=== PATIENT | female | born 1975 | race African-American/Black ===

== ENCOUNTER 2017-01-22 15:44 | Inpatient (IN) | payer MEDICAID, OTHER ==
[~2017-01-22] VITALS: Ht 165.1 cm; Wt 120.5 kg
[2017-01-22] VITALS (9 sets, daily range): BP systolic 153–192; BP diastolic 80–97; PULSE 82–96; RESP 16–24; TEMP 97.6–99; O2SAT 96–100
--- NOTE | 2017-01-22 15:53 | PD ---
HPI Chief Complaint: chest pain Time Seen by Provider: 15:53 Travel History International Travel<30 days: No Contact w/Intl Traveler<30days: No Traveled to known affect area: No History of Present Illness HPI 41-year-old female with history of asthma presents to emergency department for evaluation of acute onset substernal chest pain radiating to her right arm. Patient states [place] in the [place] when she became [place]. She went to sit in the air-conditioning and that is when the chest pain started. She became diaphoretic and lightheaded with slight nausea. Pain persists. It radiates to her Right arm. Denies any cardiac history. Does smoke tobacco cigarettes approximately 4 cigarettes a day. Denies illicit drug use. Patient has no history of DVT or PE. No recent illnesses, fever, or chills. She has no history to report at this time. [facility] Past Medical History Asthma: Yes Social History Alcohol Use: Yes Tobacco Use: Yes Substance Use: No Allergies-Medications (Allergen,Severity, Reaction): Coded Allergies: No Known Allergies (Unverified , 01/22/17) Review of Systems Except as stated in HPI: all other systems reviewed are Neg Physical Exam Narrative GENERAL: Obese female patient, sitting up in bed, in no acute distress SKIN: Focused skin assessment warm/dry. HEAD: Atraumatic. Normocephalic. EYES: Pupils equal and round. No scleral icterus. No injection or drainage. ENT: No nasal bleeding or discharge. Mucous membranes pink and moist. NECK: Trachea midline. No JVD. CARDIOVASCULAR: Regular rate and rhythm. No murmur appreciated. RESPIRATORY: No accessory muscle use. Diminished, likely due to girth. Breath sounds equal bilaterally. GASTROINTESTINAL: Abdomen soft, non-tender, nondistended. Hepatic and splenic margins not palpable. MUSCULOSKELETAL: No obvious deformities. No clubbing. No cyanosis. No edema. NEUROLOGICAL: Awake and alert. No obvious cranial nerve deficits. Motor grossly within normal limits. Normal speech. PSYCHIATRIC: Appropriate mood and affect; insight and judgment normal. Data Data Last Documented VS Vital Signs Date Time Temp Pulse Resp B/P Pulse Ox O2 Delivery O2 Flow Rate FiO2 01/22/17 17:38 89 20 179/84 100 Room Air 01/22/17 17:03 21 01/22/17 16:00 99.0 Orders Electrocardiogram (01/22/17 15:50) Basic Metabolic Panel (Bmp) (01/22/17 15:50) Ckmb (Isoenzyme) Profile (01/22/17 15:50) Complete Blood Count With Diff (01/22/17 15:50) Magnesium (Mg) (01/22/17 15:50) Prothrombin Time / Inr (Pt) (01/22/17 15:50) Act Partial Throm Time (Ptt) (01/22/17 15:50) Troponin I (01/22/17 15:50) Lipase (01/22/17 15:50) Chest, Single Ap (01/22/17 15:50) Ecg Monitoring (01/22/17 15:50) Bilateral Bp Monitoring (01/22/17 15:50) Iv Access Insert/Monitor (01/22/17 15:50) Oximetry (01/22/17 15:50) Oxygen Administration (01/22/17 15:50) Aspirin Chew (Aspirin Chew) (01/22/17 16:00) Sodium Chloride 0.9% Flush (Ns Flush) (01/22/17 16:00) Nitroglycerin Sl (Nitrostat Sl) (01/22/17 16:00) Sodium Chlorid 0.9% 500 Ml Inj (Ns 500 M (01/22/17 16:00) Ct Brain W/O Iv Contrast(Rout) (01/22/17 ) Vascular Access Team Consult/P PRN (01/22/17 16:45) Vascular Poc Ultrasound (01/22/17 ) Diet Npo (01/22/17 Dinner) Activity Bed Rest (01/22/17 ) Fibrinogen (01/22/17 17:02) Drug Screen, Random Urine (01/22/17 17:02) Type And Screen (01/22/17 17:02) Consult Neurology (01/22/17 ) Neuro Checks Q2HX12,Q4H (01/22/17 17:02) Nursing Bedside Swallow Assess .ONCE (01/22/17 17:02) NPO (01/22/17 17:02) Sodium Chlor 0.9% 1000 Ml Inj (Ns 1000 M (01/22/17 17:02) Resp Oxygen Perico C Titrat 1-4 L (01/22/17 17:02) Ed Urine Pregnancytest Poc (01/22/17 17:02) Cta Neck W Iv Contrast W 3d (01/22/17 ) Cta Brain W Iv Contrast W 3d (01/22/17 ) Cta Chest W Iv Contrast W 3d (01/22/17 ) Iohexol 350 Inj (Omnipaque 350 Inj) (01/22/17 17:26) I-Stat Creatinine (01/22/17 16:47) I-Stat Profile (01/22/17 16:47) (Hub Use Only)Inp Phy Cons/Ref (01/22/17 ) Sodium Chlor 0.9% 1000 Ml Inj (Ns 1000 M (01/22/17 18:00) Morphine Inj (Morphine Inj) (01/22/17 18:00) Ondansetron Inj (Zofran Inj) (01/22/17 18:00) Mri Brain W&W/O Contrast (01/22/17 ) Gadodiamide Pf Inj (Omniscan Pf Inj) (01/22/17 18:35) Admit Order (Ed Use Only) (01/22/17 19:13) Labs Laboratory Tests Test 01/22/17 16:47 White Blood Count 12.2 TH/MM3 Red Blood Count 4.65 MIL/MM3 Hemoglobin 11.7 GM/DL Bedside Hemoglobin 12.6 G/DL Hematocrit 35.7 % Bedside Hematocrit 37.0 % Mean Corpuscular Volume 76.7 FL Mean Corpuscular Hemoglobin 25.1 PG Mean Corpuscular Hemoglobin 32.8 % Concent Red Cell Distribution Width 15.5 % Platelet Count 422 TH/MM3 Mean Platelet Volume 8.4 FL Neutrophils (%) (Auto) 55.0 % Lymphocytes (%) (Auto) 37.6 % Monocytes (%) (Auto) 6.5 % Eosinophils (%) (Auto) 0.0 % Basophils (%) (Auto) 0.9 % Neutrophils # (Auto) 6.7 TH/MM3 Lymphocytes # (Auto) 4.6 TH/MM3 Monocytes # (Auto) 0.8 TH/MM3 Eosinophils # (Auto) 0.0 TH/MM3 Basophils # (Auto) 0.1 TH/MM3 CBC Comment DIFF FINAL Differential Comment Prothrombin Time 10.0 SEC Prothromb Time International 0.9 RATIO Ratio Activated Partial 28.2 SEC Thromboplast Time Bedside Sodium 135 MMOL/L Sodium Level 133 MEQ/L Bedside Potassium 3.8 MMOL/L Potassium Level 3.7 MEQ/L Bedside Chloride 96 MMOL/L Chloride Level 97 MEQ/L Carbon Dioxide Level 28.4 MEQ/L Anion Gap 8 MEQ/L Bedside Blood Urea Nitrogen 8 MG/DL Blood Urea Nitrogen 9 MG/DL Creatinine 0.57 MG/DL Bedside Creatinine 0.4 MG/DL Estimat Glomerular Filtration 141 ML/MIN Rate Bedside Glucose 322 MG/DL Random Glucose 312 MG/DL Calcium Level 8.7 MG/DL Magnesium Level 1.7 MG/DL Total Creatine Kinase 44 U/L Troponin I LESS THAN 0.02 NG/ML Lipase 93 U/L [facility] Medical Decision Making Medical Screen Exam Complete: Yes Emergency Medical Condition: Yes Medical Record Reviewed: Yes Differential Diagnosis ACS versus pleuritic pain versus chest wall pain versus musculoskeletal pain Narrative Course 41-year-old female presents to the emergency department for evaluation of substernal chest pain radiating to her right arm. Patient continues to have pain. Chest pain protocol is initiated. Patient is given aspirin. Sublingual nitroglycerin is ordered however there is not any worse he department at this time. Once it is felt, patient will be given it. EKG is reviewed by my attending physician. Normal sinus rhythm without any ST elevation or depression. Vascular access consult was placed for IV placement. 1658 while sitting up in bed, patient is noted to have developed a facial droop of the right lip. When cranial nerves are assessed, patient's smile is symmetric. Eyebrow raise is also symmetric. Tongue sticks out straight. Patient has slight weakness in the right upper extremity and reports a tingling/ numbness in her right toes. After more discussion about the patient's symptoms , patient states when her chest pain began, she did feel like her right arm was slightly weaker when she tried to lift up her purse, it seemed to be heavier however she was more concerned about her chest pain so she did not mention this. This was around 3:30 PM. I have called my attending physician to the group has also assessed the patient. A stroke alert is called at this time. [facility] [address] Lindsey. He requests CTA brain and neck then a call with update. 1715 I received a call from Sugar STERLING who states patient is in radiology with complaints of chest pain radiating to back. After discussing with my attending, there is concern of possible dissection which should be evaluated prior to any anticoagulation if indicated. I spoke with Dr. Aj and they will move forward with CTA chest as well 1718 I received call from Dr. Aj who states pt's CT has a bright spot within the L basal ganglia. Possible tiny hemorrhage cannot be excluded. Obviously had pt presented with neuro symptoms ASA would have not been administered. 1740 Dr. Varma, neurosurgeon reviewed the CT and questions if MRI could better evaluate for possible bleed. Dr. Aj said this would be helpful in better identifying the area. MRI is ordered. 1805 I receive a call from Dr. Aj. CTA of the brain is concerning for filling defect in the L MCA; not amendable to endovascular, but possible TPA. A call is placed to Dr. Lindsey to update him. Meanwhile, pt is in MRI MRI is with no intracranial hemorrhage. I have updated Dr. Lindsey on the findings ; he recommends ASA. He does not feel the pt is TPA candidate. I have spoken with Dr. Vickers. Pt will be admitted. Diagnosis Primary Impression: CVA (cerebral vascular accident) Qualified Code: I63.512 - Cerebrovascular accident (CVA) due to stenosis of left middle cerebral artery Additional Impressions: Chest pain Qualified Code: R07.9 - Chest pain, unspecified type Lesion of basal ganglia Asthma Qualified Code: J45.909 - Uncomplicated asthma, unspecified asthma severity Diabetes Qualified Code: E11.8 - Type 2 diabetes mellitus with complication, without long-term current use of insulin Tobacco dependence Admitting Information Admitting Physician Requests: Admit Condition: Stable Jessica Weller ELENA Jan 22, 2017 15:53
[2017-01-22] MEDS ORDERED: ASPIRIN 81 MG CHEW TAB PO ONE (16:00)
[2017-01-22] MEDS ORDERED: SODIUM CHLORID 0.9% 500 ML INJ 500 ML IV ONE (16:00)
[2017-01-22] MEDS ORDERED: SODIUM CHLORIDE 0.9% FLUSH 10 ML FLUSH IVF PRN (16:00)
[2017-01-22] MEDS ORDERED: NITROGLYCERIN 0.4 MG SL 25 TABS/BTL SL SCH (16:00)
--- NOTE | 2017-01-22 16:16 | RADRPT ---
EXAM DATE/TIME: 01/22/2017 15:48 [facility] COMPARISON: No previous studies available for comparison. INDICATIONS : Chest pain. Congestion for 1 day. MEDICAL HISTORY : Diabetes mellitus type II. SURGICAL HISTORY : None. ENCOUNTER: Initial ACUITY: 1 day PAIN SCORE: 10/10 LOCATION: Right upper chest FINDINGS: Single AP view of the chest. The lungs are clear. Cardiomediastinal silhouette within normal limits. No evidence of pleural effusion or pneumothorax. CONCLUSION: No acute cardiopulmonary disease identified. Ildefonso Askew MD on January 22, 2017 at 16:13 Board Certified Radiologist. This report was verified electronically.
[2017-01-22] MEDS ORDERED: SODIUM CHLOR 0.9% 1000 ML INJ 1,000 ML IV ONE ×2 (17:02→18:00)
[2017-01-22 17:11] LABS: AUTOMATED NEUTROPHIL # 6.7 TH/MM3 (1.8-7.7); BASOPHIL # 0.1 TH/MM3 (0-0.2); BASOPHIL % 0.9 % (0.0-2.0); HEMATOCRIT 35.7 % (35.0-46.0); HEMO FLAGS DIFF FINAL; LYMPH % 37.6 % (9.0-44.0); LYMPHOCYTE # 4.6 TH/MM3 (1.0-4.8); MEAN CELL VOLUME 76.7 FL (80.0-100.0); MEAN CORPUSCULAR HEMOGLOBIN 25.1 PG (27.0-34.0); MEAN CORPUSCULAR HGB CONC 32.8 % (32.0-36.0); MONO % 6.5 % (0.0-8.0); PLATELET COUNT 422 TH/MM3 (150-450); RED BLOOD COUNT 4.65 MIL/MM3 (4.00-5.30); RED CELL DISTRIBUTION WIDTH 15.5 % (11.6-17.2); WHITE BLOOD COUNT 12.2 TH/MM3 (4.0-11.0)
[2017-01-22 17:21] LABS: APTT (PATIENT) 28.2 SEC (24.3-30.1); INTERNATIONAL NORMALIZED RATIO 0.9 RATIO
--- NOTE | 2017-01-22 17:21 | RADRPT ---
EXAM DATE/TIME: 01/22/2017 17:01 [place] Corrected on: January 22, 2017; [facility] COMPARISON: CHEST SINGLE AP, January 22, 2017, 15:48. INDICATIONS : Stroke alert; ritgh side facial droop. RADIATION DOSE: 56.35 CTDIvol (mGy) This report was called by Marilyn to Jessica Daily at 1715 MEDICAL HISTORY : None SURGICAL HISTORY : None. ENCOUNTER: Initial ACUITY: 1 day PAIN SCALE: 0/10 LOCATION: Bilateral cranial TECHNIQUE: Multiple contiguous axial images were obtained of the head. Using automated exposure control and adj ustment of the mA and/or kV according to patient size, radiation dose was kept as low as reasonably a chievable to obtain optimal diagnostic quality images. DICOM format image data is available electro nically for review and comparison. FINDINGS: CEREBRUM: The ventricles are normal for age. A small hyperdense focus is identified in the left basal ganglia. There is no associated edema or mass effect. Cerebral hemispheres are otherwise unremarkable. No ext ra-axial fluid collections are seen. POSTERIOR FOSSA: The cerebellum and brainstem are intact. The 4th ventricle is midline. The cerebellopontine angle i s unremarkable. EXTRACRANIAL: The visualized portion of the orbits is intact. SKULL: The calvaria is intact. No evidence of skull fracture. CONCLUSION: Small hyperdense focus in the left basal ganglia representing either focal calcification or a very sm all hemorrhage. Otherwise normal appearing brain. Girish Aj MD on January 22, 2017 at 17:11 Board Certified Radiologist. This report was verified electronically. Girish Aj MD on January 22, 2017 at 17:47 Board Certified Radiologist. This report was verified electronically.
[2017-01-22] MEDS ORDERED: IOHEXOL 350 MG/ML 10 ML VIAL (for RAD DIAG) IV ONE (17:26)
[2017-01-22 17:30] LABS: I-STAT POTASSIUM 3.8 MMOL/L (3.5-4.9)
--- NOTE | 2017-01-22 17:47 | RADRPT ---
EXAM DATE/TIME: 01/22/2017 17:18 [facility] COMPARISON: No previous studies available for comparison. INDICATIONS : Evaluate for aortic dissection. Facial droop. Chest pain. IV CONTRAST: 150 cc Omnipaque 350 (iohexol) IV ; Cumulative dose for multiple exams. RADIATION DOSE: 30.41 CTDIvol (mGy) MEDICAL HISTORY : Diabetes mellitus type 2. SURGICAL HISTORY : None. ENCOUNTER: Initial ACUITY: 1 day PAIN SCALE: 7/10 LOCATION: chest TECHNIQUE: Volumetric scanning of the chest was performed using a pulmonary embolism protocol MIP images were re constructed. Using automated exposure control and adjustment of the mA and/or kV according to patien t size, radiation dose was kept as low as reasonably achievable to obtain optimal diagnostic quality images. DICOM format image data is available electronically for review and comparison. Follow-up recommendations for detected pulmonary nodules are based at a minimum on nodule size and pa tient risk factors according to Fleischner Society Guidelines. FINDINGS: PULMONARY ARTERIES and thoracic aorta: Thoracic aorta is normal in caliber. There is no evidence of aneurysm or dissection. No filling defects are seen in the pulmonary arteries through the segmental level. LUNGS: There is no consolidation or pneumothorax . No concerning pulmonary nodule is visualized. PLEURAE: There is no pleural thickening or pleural effusion. MEDIASTINUM: There is good visualization of the great vessels of the middle mediastinum. No evidence of mediastin al or hilar adenopathy/mass. MUSCULOSKELETAL: Within normal limits for patient age. MISCELLANEOUS: The visualized upper abdominal organs demonstrate no acute abnormality. CONCLUSION: Normal examination. No evidence of pulmonary embolism or thoracic aortic dissection. Girish Aj MD on January 22, 2017 at 17:45 Board Certified Radiologist. This report was verified electronically.
--- NOTE | 2017-01-22 17:55 | RADRPT ---
EXAM DATE/TIME: 01/22/2017 17:13 [facility] COMPARISON: No previous studies available for comparison. INDICATIONS : Stroke alert. Facial droop. Chest pain. IV CONTRAST: 150 cc Omnipaque 350 (iohexol) IV ; Cumulative dose for multiple exams. RADIATION DOSE: 36.03 CTDIvol (mGy) ; Combined studies MEDICAL HISTORY : Diabetes mellitus type 2. SURGICAL HISTORY : None. ENCOUNTER: Initial ACUITY: 1 day PAIN SCALE: 7/10 LOCATION: chest Elevated flow velocities and ICA/CCA ratios have been found to correlate with increased degrees of vessel stenosis, calculated as percentage of diameter relative to a normal segment of distal ICA/CCA. TECHNIQUE: Volumetric scanning was performed using a multirow detector CT scanner. The data was post processed with a variety of visualization algorithms including full-volume maximum intensity projection, multip lanar sliding thin-slab reformation, curved-planar reformation, and surface-rendering techniques. Us ing automated exposure control and adjustment of the mA and/or kV according to patient size, radiatio n dose was kept as low as reasonably achievable to obtain optimal diagnostic quality images. DICOM f ormat image data is available electronically for review and comparison. FINDINGS: AORTIC ARCH: There is a three-vessel origin of the great vessels from the aorta. No evidence of ostial narrowing. RIGHT CAROTID: The common carotid artery is intact. The carotid bulb has a normal configuration without ulceration o r narrowing. The internal carotid artery lumen is smooth without stenosis. The external carotid raj ry is intact. LEFT CAROTID: The common carotid artery is intact. The carotid bulb has a normal configuration without ulceration or narrowing. The internal carotid artery lumen is smooth without stenosis. The external carotid ar marcelina is intact. VERTEBRALS: The vertebral arteries have a symmetric diameter. No stenotic lesions are seen. CONCLUSION: Normal examination. Girish Aj MD on January 22, 2017 at 17:52 Board Certified Radiologist. This report was verified electronically.
[2017-01-22 17:59] LABS: ANION GAP 8 MEQ/L (5-15); BICARBONATE 28.4 MEQ/L (21.0-32.0); BLOOD UREA NITROGEN 9 MG/DL (7-18); CHLORIDE 97 MEQ/L (98-107); GLOMERULAR FILTRATION RATE 141 ML/MIN (>89); MAGNESIUM 1.7 MG/DL (1.5-2.5); POTASSIUM 3.7 MEQ/L (3.5-5.1); SODIUM (NA) 133 MEQ/L (136-145)
[2017-01-22] MEDS ORDERED: ONDANSETRON HCL 4 MG/2 ML VIAL IV PUSH ONE (18:00)
[2017-01-22] MEDS ORDERED: MORPHINE SULFATE 4 MG/ML INJ IV PUSH ONE (18:00)
[2017-01-22 18:08] LABS: CREATINE KINASE 44 U/L (26-192)
--- NOTE | 2017-01-22 18:10 | RADRPT ---
EXAM DATE/TIME: 01/22/2017 17:13 [facility] COMPARISON: No previous studies available for comparison. INDICATIONS : Stroke alert. Facial droop. Chest pain. IV CONTRAST: 150 cc Omnipaque 350 (iohexol) IV ; Cumulative dose for multiple exams. RADIATION DOSE: 36.41 CTDIvol (mGy) ; Combined studies MEDICAL HISTORY : Diabetes mellitus type 2. SURGICAL HISTORY : None. ENCOUNTER: Initial ACUITY: 1 day PAIN SCALE: 7/10 LOCATION: chest TECHNIQUE: Volumetric scanning was performed using a multi-row detector CT scanner. The data was post processed with a variety of visualization algorithms including full volume maximum intensity projection, multi -planar sliding thin slab reformation, curved planar reformation, and surface rendering techniques. Using automated exposure control and adjustment of the mA and/or kV according to patient size, radiat ion dose was kept as low as reasonably achievable to obtain optimal diagnostic quality images. DICO M format image data is available electronically for review and comparison. FINDINGS: There is satisfactory visualization of the major intracranial arteries out to the second-order branch vessels. The internal carotid arteries are widely patent without evidence of stenosis or filling defects. Focal luminal irregularity and narrowing with possible small filling defect is identified in a proxim al M2 branch of the left middle cerebral artery. The M1 branches are widely patent bilaterally. Posterior circulation is unremarkable. CONCLUSION: Luminal irregularity with focal narrowing and possible small filling defect identified in an M2 branc h of left middle cerebral artery. No evidence of filling defects in the internal carotid arteries or M1 branches Normal posterior circulation. Report called to the emergency department. Girish Aj MD on January 22, 2017 at 18:02 Board Certified Radiologist. This report was verified electronically.
[2017-01-22] MEDS ORDERED: GADODIAMIDE PF 287 MG/ML 20 ML VIAL (for RAD MRI) IV ONE (18:35)
--- NOTE | 2017-01-22 19:07 | RADRPT ---
EXAM DATE/TIME: 01/22/2017 18:18 [facility] COMPARISON: CT BRAIN W/O CONTRAST, January 22, 2017, 17:01. INDICATIONS : Right facial droop, abnormal CT. CONTRAST: 20 cc Omniscan (gadodiamide) IV MEDICAL HISTORY : None. SURGICAL HISTORY : ORIF ankle ENCOUNTER: Initial ACUITY: 1 day PAIN SCORE: 0/10 LOCATION: cranial TECHNIQUE: Multiplanar, multisequence MRI of the brain was performed both prior to and following the administrat ion of paramagnetic contrast. FINDINGS: CEREBRUM: The ventricles are normal for age. No evidence of midline shift, mass lesion, hemorrhage or acute in farction. No extraaxial fluid collections are seen. The pituitary gland and suprasellar cistern are normal in configuration. WHITE MATTER: No significant signal abnormalities are seen in the white matter. POSTERIOR FOSSA: The cerebellum and brainstem are intact. The 4th ventricle is midline. The cerebellopontine angle is unremarkable. The cerebellar tonsils are normal in position. DIFFUSION IMAGING: No focal areas of restricted diffusion are seen. No evidence of acute infarction. EXTRACRANIAL: The visualized portions of the orbits and paranasal sinuses are unremarkable. POST-CONTRAST: No abnormal areas of parenchymal or dural enhancement. No evidence of blood-brain barrier breakdown. CONCLUSION: No evidence of acute intracranial findings. No evidence of hemorrhage. Ildefonso Askew MD on January 22, 2017 at 19:00 Board Certified Radiologist. This report was verified electronically.
[2017-01-22] MEDS ORDERED: LACTULOSE SYRUP 20 GM/30 ML CUP PO PRN (19:45)
[2017-01-22] MEDS ORDERED: DEXTROSE 50% IN WATER 50 ML VIAL(D50) IV PUSH PRN (19:45)
[2017-01-22] MEDS ORDERED: SODIUM CHLORIDE 0.9% FLUSH 5 ML FLUSH IV FLUSH PRN (19:45)
[2017-01-22] MEDS ORDERED: ENALAPRILAT 1.25 MG/ML VIAL IV PRN (19:45)
[2017-01-22] MEDS ORDERED: NALOXONE HCL 0.4 MG/ML AMP IV PRN (19:45)
[2017-01-22] MEDS ORDERED: GLUCAGON 1 MG/ML VIAL OTHER PRN (19:45)
[2017-01-22] MEDS ORDERED: BISACODYL 10 MG SUPP RECTAL PRN (19:45)
[2017-01-22] MEDS ORDERED: SENNOSIDES 8.6 MG TAB PO PRN (19:45)
[2017-01-22] MEDS ORDERED: MAGNESIUM HYDROXIDE SUSP 30 ML CUP PO PRN (19:45)
[2017-01-22] MEDS ORDERED: ONDANSETRON HCL 4 MG/2 ML VIAL IVP PRN (19:45)
--- NOTE | 2017-01-22 19:59 | HHI.HP ---
HPI Service [facility] Primary Care Physician Unknown Admission Diagnosis chest pain; ?CVA; R facial droop; RUE weakness; filling defect L MCA Diagnoses: (1) Chest pain Diagnosis: Principal (2) CVA (cerebral vascular accident) Diagnosis: Principal (3) Leukocytosis Diagnosis: Principal (4) DM (diabetes mellitus) Diagnosis: Principal (5) Tobacco abuse Diagnosis: Principal Travel History International Travel<30 Days: No Contact w/Intl Traveler <30 Da: No Traveled to Known Affected Are: No History of Present Illness This is a 41-year-old female with a PMH of Asthma and DM (not on medication) who presented to the ER with complaints of chest pain starting earlier today while walking at the [employer]. States she felt hot and had sudden onset of chest pain w/ radiation to back in addition to RUE numbness. No h/o similar symptoms in the past. On arrival, BP 167/86, HR 96, O2 sat 98% on RA, Afebrile. CBC unremarkable for WBC 12.2. Chemistry essentially unremarkable except for BS 322. Troponin negative. INR 0.9. While in ER, pt w/ acute onset of right-sided facial droop and RUE/RLE weakness, symptoms persistent. Stroke Alert initiated. CT Have a small hyperdense focus in the left basal ganglia possibly calcification or small hemorrhage. CTA Head with luminal irregularity of left MCA. CTA Neck normal. CXR with no acute findings. CTA Chest was no evidence of dissection. Urology consulted by ER physician, recommended MRI Brain for further evaluation of possible hemorrhage. MRI Brain negative for acute hemorrhage. Dr. Lindsey recommended treatment w/ ASA only at this time, not TPA candidate. Review of Systems Except as stated in HPI: all other systems reviewed are Neg ROS: 14 point review of systems otherwise negative. Past Family Social History Past Medical History PMH: Asthma and DM Past Surgical History PAST SURGICAL HISTORY: None Allergies: Coded Allergies: No Known Allergies (Unverified , 01/22/17) Family History PAST FAMILY HISTORY: Reviewed. No h/o DM or CAD Social History PAST SOCIAL HISTORY: Positive for alcohol and tobacco. Negative for drugs. Physical Exam Vital Signs Vital Signs Date Time Temp Pulse Resp B/P Pulse Ox O2 Delivery O2 Flow Rate FiO2 01/22/17 19:05 90 18 153/80 96 Room Air 01/22/17 17:38 89 20 179/84 100 Room Air 01/22/17 17:03 99 21 01/22/17 17:00 82 192/97 97 Room Air 01/22/17 16:45 Room Air 01/22/17 16:00 98 Room Air 01/22/17 16:00 99.0 86 16 179/84 98 01/22/17 16:00 96 Room Air 01/22/17 15:46 98.4 96 24 167/86 98 Room Air Physical Exam PE: GENERAL: Middle-aged black female in no acute distress. and daughter at bedside. HEENT: PERRLA, EOMI. No scleral icterus or conjunctival pallor. No lid lag. Right facial droop. CARDIOVASCULAR: Regular rate and rhythm. No obvious murmurs to auscultation. No chest tenderness to palpation. RESPIRATORY: No obvious rhonchi or wheezing. Clear to auscultation. Breath sounds equal bilaterally. GASTROINTESTINAL: Abdomen soft, non-tender, nondistended. BS normal. MUSCULOSKELETAL: Extremities without clubbing, cyanosis, or edema. No obvious deformities. NEUROLOGICAL: Awake, alert and oriented x4. RUE/RLE weakness, strength 3/5. Moving both upper and lower extremities spontaneously. Laboratory Laboratory Tests Test 01/22/17 16:47 White Blood Count 12.2 Red Blood Count 4.65 Hemoglobin 11.7 Bedside Hemoglobin 12.6 Hematocrit 35.7 Bedside Hematocrit 37.0 Mean Corpuscular Volume 76.7 Mean Corpuscular Hemoglobin 25.1 Mean Corpuscular Hemoglobin 32.8 Concent Red Cell Distribution Width 15.5 Platelet Count 422 Mean Platelet Volume 8.4 Neutrophils (%) (Auto) 55.0 Lymphocytes (%) (Auto) 37.6 Monocytes (%) (Auto) 6.5 Eosinophils (%) (Auto) 0.0 Basophils (%) (Auto) 0.9 Neutrophils # (Auto) 6.7 Lymphocytes # (Auto) 4.6 Monocytes # (Auto) 0.8 Eosinophils # (Auto) 0.0 Basophils # (Auto) 0.1 CBC Comment DIFF FINAL Differential Comment Prothrombin Time 10.0 Prothromb Time International 0.9 Ratio Activated Partial 28.2 Thromboplast Time Bedside Sodium 135 Sodium Level 133 Bedside Potassium 3.8 Potassium Level 3.7 Bedside Chloride 96 Chloride Level 97 Carbon Dioxide Level 28.4 Anion Gap 8 Bedside Blood Urea Nitrogen 8 Blood Urea Nitrogen 9 Creatinine 0.57 Bedside Creatinine 0.4 Estimat Glomerular Filtration 141 Rate Bedside Glucose 322 Random Glucose 312 Calcium Level 8.7 Magnesium Level 1.7 Total Creatine Kinase 44 Troponin I LESS THAN 0.02 Lipase 93 Result Diagram: 01/22/17164601/22/171646 Assessment and Plan Problem List: (1) Chest pain ICD Code: R07.9 Status: Acute (2) CVA (cerebral vascular accident) ICD Code: I63.9 Status: Acute (3) Leukocytosis ICD Code: D72.829 Status: Acute (4) DM (diabetes mellitus) ICD Code: E11.9 Status: Acute (5) Tobacco abuse ICD Code: Z72.0 Status: Acute Assessment and Plan A/P: 1. Chest Pain: acute onset of chest pain w/ radiation to back, concern for dissection, CTA Chest normal, no evidence of dissection, CXR w/ no acute abnormalities, images reviewed by me. Initial trop negative, EKG w/ no acute ischemia. Currently chest pain free. Check serial cardiac enzymes, lipid profile, Hgb A1c, ASA, Statin, hold B-tk in light of CVA. Check Echo. 2. CVA: acute episode of facial droop and right-sided weakness while in ER, symptoms persistent. No slurred speech. CT Head w/ possible left basal ganglia hemorrhage, Neurology consulted, recommended CTA Head/Neck, possible filling defect Left MCA, recommendation for further eval w/ MRI Brain, MRI w/ no evidence of acute intracranial hemorrhage, images reviewed by me. Results called to Dr. Lindsey, recommended treatment w/ ASA, not TPA candidate. PT/Speech , ASA/Statin. 3. Leukocytosis: WBC 12.2, CXR w/ no acute infiltrate, images reviewed by me. U/a pending. No obvious signs of infection. Repeat labs in am. 4. DM: Non-compliant w/ home meds due to episodes of hypoglycemia per pt. Check Hgb A1c, sliding scale w/ Accu-Cheks. 5. Tobacco Abuse: Pt counselled. Ativan prn. No NicoDerm to avoid vasoconstriction. 6. DVT Prophylaxis: SCD/Teds. 7. Social work for d/c planning as needed. 8. Case discussed w/ ER physician at length. Physician Certification 2 Midnight Certification Type: Admission for Inpatient Services Order for Inpatient Services The services are ordered in accordance with Medicare regulations or non- Medicare payer requirements, as applicable. In the case of services not specified as inpatient-only, they are appropriately provided as inpatient services in accordance with the 2-midnight benchmark. Estimated LOS (days): 2 days is the estimated time the patient will need to remain in the hospital, assuming treatment plan goals are met and no additional complications. Post-Hospital Plan: Not yet determined Problem Qualifiers (1) Chest pain: Qualified Code: R07.9 - Chest pain, unspecified type (2) CVA (cerebral vascular accident): Qualified Code: I63.512 - Cerebrovascular accident (CVA) due to stenosis of left middle cerebral artery Sana Vickers MD Jan 22, 2017 19:59
--- NOTE | 2017-01-22 20:52 | MB ---
cc: CRICKET DENT MD DATE OF CONSULTATION 01/22/17 She is a 41-year-old woman seen in neurological consultation in regards to stroke alert. She came to the emergency room with chest pain. In the emergency room, she was noticed to have some right facial symptoms. The pain seemed to radiate to the right-sided chest, shoulder and arm. There is some minimal weakness in the face and lip and, when questioned, the patient admitted some arm weakness. The stroke alert was called. The patient was sent for CT brain, CT angio and there was initially a question of a very tiny hemorrhage on the left basal ganglion and an MRI brain was accomplished as well. I saw the CT brain. The MRI brain was subsequently reported as showing no suggestion of hemorrhage and also no evidence of acute stroke. When I saw the patient, her NIH stroke scale was also three. The exam showed the patient to be awake, alert, oriented and in some distress because of the right-sided chest pain radiating somewhat to the shoulder. Speech is minimally slurred. There is minimal right facial weakness and her set rider is minimally weak on the right in comparison to the left. There was no arm drift. She resisted well with the lower extremities on the bedside exam. Reflexes were 1+ throughout and plantar response is flexor. Pupils were equal and reactive and visual lorenzo full. ASSESSMENT Minimal neurologic deficits right face and right arm with a stroke scale of two or three. The imaging studies were discussed above. In this setting, I did not feel the patient was a candidate for TPA. There was minimal small filling defect in an M2 branch of left middle cerebral artery. Also considering the very low stroke scale, the patient would not be a candidate for intervention. The patient is being admitted with aspirin therapy and medical care. We will follow lipid profile and I will follow the neurological course. Thank you for asking us to assist in her care. MD CLARA Freitas/ /7:39 PM /8:36 PM
[2017-01-22] MEDS: DOCUSATE SODIUM 50 MG/SENNA 8.6 MG TAB PO SCH (21:00)
[2017-01-22] MEDS: INSULIN ASPART SUPPLEMENTAL SCALE SQ SCH (21:00)
[2017-01-22] MEDS: PRAVASTATIN SOD 40 MG TAB PO SCH (21:00)
[2017-01-22] MEDS: SODIUM CHLORIDE 0.9% FLUSH 5 ML FLUSH IV FLUSH SCH (22:22)
[2017-01-22] MEDS: SODIUM CHLOR 0.9% 1000 ML INJ 1,000 ML IV SCH (22:26)
[2017-01-22] MEDS ORDERED: ACETAMINOPHEN 325 MG TAB PO PRN (23:45)
[2017-01-22] MEDS ORDERED: MORPHINE SULFATE 4 MG/ML INJ IV PUSH PRN (23:45)
[2017-01-22] MEDS: NITROGLYCERIN 0.4 MG SL 25 TABS/BTL SL PRN ×2 (23:45→23:57)
[2017-01-23] VITALS (25 sets, daily range): BP systolic 144–173; BP diastolic 78–95; PULSE 74–94; RESP 18–21; TEMP 97.9–98.9; O2SAT 96–98
[2017-01-23] MEDS: ACETAMINOPHEN/HYDROcodone 325 MG/5 MG TAB PO PRN ×3 (00:28→15:34)
[2017-01-23 03:54] LABS: BACTERIA, URINE MOD /hpf; BLOOD, URINE NEG (NEG); COMMENT (UR) CULTURE INDICATED; CULTURE IF INDICATED CULTURE INDICATED; GLUCOSE,URINE 1000 mg/dL (NEG); KETONE, URINE NEG (NEG); MUCUS URINE FEW /lpf (OCC); SQUAMOUS EPITHELIAL CELL URINE 1 /hpf (0-5); URINE COLOR YELLOW (YELLW/STRAW)
[2017-01-23 03:55] LABS: NITRITE,URINE POS (NEG)
[2017-01-23] MEDS: ACETAMINOPHEN 325 MG TAB PO PRN (06:34)
[2017-01-23] MEDS: INSULIN ASPART SUPPLEMENTAL SCALE SQ SCH ×4 (06:36→22:25)
[2017-01-23] MEDS: SODIUM CHLOR 0.9% 1000 ML INJ 1,000 ML IV SCH ×2 (06:36→15:21)
[2017-01-23 07:24] LABS: AUTOMATED NEUTROPHIL # 5.1 TH/MM3 (1.8-7.7); BASOPHIL # 0.1 TH/MM3 (0-0.2); BASOPHIL % 0.7 % (0.0-2.0); HEMATOCRIT 32.7 % (35.0-46.0); HEMO FLAGS DIFF FINAL; LYMPH % 42.4 % (9.0-44.0); LYMPHOCYTE # 4.4 TH/MM3 (1.0-4.8); MEAN CELL VOLUME 76.6 FL (80.0-100.0); MEAN CORPUSCULAR HEMOGLOBIN 24.9 PG (27.0-34.0); MEAN CORPUSCULAR HGB CONC 32.6 % (32.0-36.0); MONO % 7.8 % (0.0-8.0); NEUT % 49.1 % (16.0-70.0); PLATELET COUNT 381 TH/MM3 (150-450); RED BLOOD COUNT 4.27 MIL/MM3 (4.00-5.30); RED CELL DISTRIBUTION WIDTH 15.3 % (11.6-17.2); WHITE BLOOD COUNT 10.3 TH/MM3 (4.0-11.0)
[2017-01-23 08:05] LABS: ALT (GPT) 21 U/L (10-53); ANION GAP 9 MEQ/L (5-15); AST (GOT) 15 U/L (15-37); BLOOD UREA NITROGEN 7 MG/DL (7-18); CHLORIDE 98 MEQ/L (98-107); GLOMERULAR FILTRATION RATE 177 ML/MIN (>89); POTASSIUM 3.9 MEQ/L (3.5-5.1); SODIUM (NA) 134 MEQ/L (136-145)
[2017-01-23 08:08] LABS: ALKALINE PHOSPHATASE 90 U/L (45-117); HDL CHOLESTEROL 28.8 MG/DL (40.0-60.0); LDL CHOLESTEROL 109 MG/DL (0-99); TOTAL BILIRUBIN ADULT 0.2 MG/DL (0.2-1.0)
[2017-01-23] MEDS: DOCUSATE SODIUM 50 MG/SENNA 8.6 MG TAB PO SCH ×2 (08:47→22:24)
[2017-01-23] MEDS ORDERED: ASPIRIN 300 MG SUPP RECTAL SCH (09:00)
[2017-01-23] MEDS: SODIUM CHLORIDE 0.9% FLUSH 5 ML FLUSH IV FLUSH SCH ×2 (09:00→21:00)
[2017-01-23 09:44] LABS: HEMOGLOBIN A1a 1.3 %; HEMOGLOBIN A1b 3.1 %; HEMOGLOBIN Ao 74.8 %; HEMOGLOBIN LA1C 3.4 %; HEMOGLOBIN P3 5.3 %
--- NOTE | 2017-01-23 11:58 | HHI.PR ---
Review/Management Daily Summary 01/23 seen early this am doing better neuro findings minimal and better than yesterday continue asa, statin and medical care Subjective Subjective Comments No new acute events reported No headache Active Medications Current Medications Medications (Trade) Dose Ordered Sig/Josep Route Start Time Stop Time Status Last Admin (NS Flush) 2 ml BID IV FLUSH 01/22/17 21:00 01/23/17 09:00 IV Flush 2 ml 2 ml UNSCH PRN IV FLUSH 01/22/17 19:45 (NS 1000 ml Inj) 1,000 ml @ 70 mls/hr [id number] IV 01/22/17 20:00 01/23/17 06:36 (Vasotec Inj) 1.25 mg Q4H PRN IV 01/22/17 19:45 (Aspirin Supp) 300 mg DAILY RECTAL 01/23/17 09:00 (Pravachol) 40 mg HS PO 01/22/17 21:00 (NovoLOG SUPPLEMENTAL SCALE) 1 ACHS SQ 01/22/17 21:00 01/23/17 06:36 (D50w (Vial) Inj) 50 ml UNSCH PRN IV PUSH 01/22/17 19:45 (Glucagon Inj) 1 mg UNSCH PRN OTHER 01/22/17 19:45 (Zofran Inj) 4 mg Q6H PRN IVP 01/22/17 19:45 (Narcan Inj) 0.4 mg UNSCH PRN IV 01/22/17 19:45 (Mary-Colace) 1 tab BID PO 01/22/17 21:00 01/23/17 08:47 (Milk Of Magnesia Liq) 30 ml Q12H PRN PO 01/22/17 19:45 (Senokot) 17.2 mg Q12H PRN PO 01/22/17 19:45 (Dulcolax Supp) 10 mg DAILY PRN RECTAL 01/22/17 19:45 (Lactulose Liq) 30 ml DAILY PRN PO 01/22/17 19:45 (Nitrostat Sl) 0.4 mg Q5M PRN SL 01/22/17 23:45 01/22/17 23:57 (Tylenol) 650 mg Q6HR PRN PO 01/22/17 23:45 01/23/17 06:34 ([place] 5-325 Mg) 1 tab Q4H PRN PO 01/22/17 23:45 01/23/17 08:47 (Morphine Inj) 3 mg Q3H PRN IV PUSH 01/22/17 23:45 Allergies Allergies Coded Allergies No Known Allergies (Unverified01/22/17) Exam I&O / VS 01/22/17 01/22/17 01/23/17 14:59 22:59 06:59 Intake Total 963 ml Output Total 500 ml Balance 463 ml Intake Oral 480 ml IV Total 483 ml Output Urine Total 500 ml Vital Signs Date Time Temp Pulse Resp B/P Pulse Ox O2 Delivery O2 Flow Rate FiO2 01/23/17 11:45 98.3 90 18 153/78 98 01/23/17 10:19 98 01/23/17 10:04 18 01/23/17 08:00 98.1 85 18 151/88 98 01/23/17 07:30 18 01/23/17 06:28 82 01/23/17 05:07 74 01/23/17 04:20 88 01/23/17 03:21 97.9 92 18 167/90 96 01/23/17 03:00 86 01/23/17 02:00 94 01/23/17 02:00 86 01/23/17 00:00 86 01/22/17 23:30 83 01/22/17 23:22 97.6 85 19 155/89 97 01/22/17 20:05 97 21 01/22/17 19:05 90 18 153/80 96 Room Air 01/22/17 17:38 89 20 179/84 100 Room Air 01/22/17 17:03 99 21 01/22/17 17:00 82 192/97 97 Room Air 01/22/17 16:45 Room Air 01/22/17 16:00 98 Room Air 01/22/17 16:00 99.0 86 16 179/84 98 01/22/17 16:00 96 Room Air 01/22/17 15:46 98.4 96 24 167/86 98 Room Air Objective Radiology Results Last 48 hours Impressions Chest X-Ray 01/22/17 1550 Signed Impressions: Service Date/Time: Sunday, January 22, 2017 15:48 - CONCLUSION: No acute cardiopulmonary disease identified. Ildefonso Askew MD Neck CTA 01/22/17 0000 Signed Impressions: Service Date/Time: Sunday, January 22, 2017 17:13 - CONCLUSION: Normal examination. Girihs Aj MD Head CTA 01/22/17 0000 Signed Impressions: Service Date/Time: Sunday, January 22, 2017 17:13 - CONCLUSION: Luminal irregularity with focal narrowing and possible small filling defect identified in an M2 branch of left middle cerebral artery. No evidence of filling defects in the internal carotid arteries or M1 branches Normal posterior circulation. Report called to the emergency department. Girish Aj MD Head CT 01/22/17 0000 Signed Impressions: Service Date/Time: Sunday, January 22, 2017 17:01 - CONCLUSION: Small hyperdense focus in the left basal ganglia representing either focal calcification or a very small hemorrhage. Otherwise normal appearing brain. Girish Aj MD Chest/Thorax CTA 01/22/17 0000 Signed Impressions: Service Date/Time: Sunday, January 22, 2017 17:18 - CONCLUSION: Normal examination. No evidence of pulmonary embolism or thoracic aortic dissection. Girish Aj MD Brain MRI 01/22/17 0000 Signed Impressions: Service Date/Time: Sunday, January 22, 2017 18:18 - CONCLUSION: No evidence of acute intracranial findings. No evidence of hemorrhage. Ildefonso Askew MD Micro and Labs Laboratory Tests Test 01/22/17 01/22/17 01/23/17 01/23/17 16:47 21:35 00:43 03:19 White Blood Count 12.2 Red Blood Count 4.65 Hemoglobin 11.7 Bedside Hemoglobin 12.6 Hematocrit 35.7 Bedside Hematocrit 37.0 Mean Corpuscular Volume 76.7 Mean Corpuscular Hemoglobin 25.1 Mean Corpuscular Hemoglobin 32.8 Concent Red Cell Distribution Width 15.5 Platelet Count 422 Mean Platelet Volume 8.4 Neutrophils (%) (Auto) 55.0 Lymphocytes (%) (Auto) 37.6 Monocytes (%) (Auto) 6.5 Eosinophils (%) (Auto) 0.0 Basophils (%) (Auto) 0.9 Neutrophils # (Auto) 6.7 Lymphocytes # (Auto) 4.6 Monocytes # (Auto) 0.8 Eosinophils # (Auto) 0.0 Basophils # (Auto) 0.1 CBC Comment DIFF FINAL Differential Comment Prothrombin Time 10.0 Prothromb Time International 0.9 Ratio Activated Partial 28.2 Thromboplast Time Fibrinogen 424 Bedside Sodium 135 Sodium Level 133 Bedside Potassium 3.8 Potassium Level 3.7 Bedside Chloride 96 Chloride Level 97 Carbon Dioxide Level 28.4 Anion Gap 8 Bedside Blood Urea Nitrogen 8 Blood Urea Nitrogen 9 Creatinine 0.57 Bedside Creatinine 0.4 Estimat Glomerular Filtration 141 Rate Bedside Glucose 322 Random Glucose 312 Calcium Level 8.7 Magnesium Level 1.7 Total Creatine Kinase 44 Troponin I LESS THAN 0.02 LESS THAN 0.02 Triglycerides Level 316 Cholesterol Level 205 LDL Cholesterol 110 HDL Cholesterol 32.0 Cholesterol/HDL Ratio 6.40 Lipase 93 Blood Type O POSITIVE Antibody Screen NEGATIVE Blood Bank Comment Urine Color YELLOW Urine Turbidity HAZY Urine pH 6.0 Urine Specific [place] GREATER THAN 1.050 Urine Protein TRACE Urine Glucose (UA) 1000 Urine Ketones NEG Urine Occult Blood NEG Urine Nitrite POS Urine Bilirubin NEG Urine Urobilinogen LESS THAN 2.0 Urine Leukocyte Esterase MOD Urine RBC 1 Urine WBC 50 Urine Squamous Epithelial 1 Cells Urine Bacteria MOD Urine Mucus FEW Microscopic Urinalysis Comment CULTURE INDICATED Urine Opiates Screen POS Urine Barbiturates Screen NEG Urine Amphetamines Screen NEG Urine Benzodiazepines Screen NEG Urine Cocaine Screen NEG Urine Cannabinoids Screen POS Test 01/23/17 06:25 White Blood Count 10.3 Red Blood Count 4.27 Hemoglobin 10.7 Hematocrit 32.7 Mean Corpuscular Volume 76.6 Mean Corpuscular Hemoglobin 24.9 Mean Corpuscular Hemoglobin 32.6 Concent Red Cell Distribution Width 15.3 Platelet Count 381 Mean Platelet Volume 8.4 Neutrophils (%) (Auto) 49.1 Lymphocytes (%) (Auto) 42.4 Monocytes (%) (Auto) 7.8 Eosinophils (%) (Auto) 0.0 Basophils (%) (Auto) 0.7 Neutrophils # (Auto) 5.1 Lymphocytes # (Auto) 4.4 Monocytes # (Auto) 0.8 Eosinophils # (Auto) 0.0 Basophils # (Auto) 0.1 CBC Comment DIFF FINAL Differential Comment Sodium Level 134 Potassium Level 3.9 Chloride Level 98 Carbon Dioxide Level 27.0 Anion Gap 9 Blood Urea Nitrogen 7 Creatinine 0.47 Estimat Glomerular Filtration 177 Rate Random Glucose 292 Calcium Level 8.3 Total Bilirubin 0.2 Aspartate Amino Transf 15 (AST/SGOT) Alanine Aminotransferase 21 (ALT/SGPT) Alkaline Phosphatase 90 Troponin I LESS THAN 0.02 Total Protein 6.9 Albumin 2.7 Triglycerides Level 232 Cholesterol Level 184 LDL Cholesterol 109 HDL Cholesterol 28.8 Cholesterol/HDL Ratio 6.38 Date/Time Procedure Status Source Growth 01/23/17 03:19 Urine Culture Received Urine Clean Catch Pending Gerald Lindsey MD Jan 23, 2017 11:58
--- NOTE | 2017-01-23 12:18 | EKG ---
Date Performed: 01/22/2017 Time Performed: 15:54:37 PTAGE: 41 years EKG: Sinus rhythm NORMAL ECG NO PREVIOUS TRACING DOCTOR: Noah Zabala Interpretating Date/Time 01/23/2017 12:17:31
--- NOTE | 2017-01-23 14:15 | HHI.PR ---
Subjective Remarks no headaches, chest pains or shortness of breath no nausea or vomiting no weakness states history of DM type 2 at one point was on glyburide- DC by PCP smoker obese Objective Vitals Vital Signs Date Time Temp Pulse Resp B/P Pulse Ox O2 Delivery O2 Flow Rate FiO2 01/23/17 13:00 90 01/23/17 12:00 84 01/23/17 11:45 98.3 90 18 153/78 98 01/23/17 10:19 98 01/23/17 10:04 18 01/23/17 10:00 84 01/23/17 09:00 84 01/23/17 08:00 82 01/23/17 08:00 98.1 85 18 151/88 98 01/23/17 07:30 18 01/23/17 06:28 82 01/23/17 05:07 74 01/23/17 04:20 88 01/23/17 03:21 97.9 92 18 167/90 96 01/23/17 03:00 86 01/23/17 02:00 94 01/23/17 02:00 86 01/23/17 00:00 86 01/22/17 23:30 83 01/22/17 23:22 97.6 85 19 155/89 97 01/22/17 20:05 97 21 01/22/17 19:05 90 18 153/80 96 Room Air 01/22/17 17:38 89 20 179/84 100 Room Air 01/22/17 17:03 99 21 01/22/17 17:00 82 192/97 97 Room Air 01/22/17 16:45 Room Air 01/22/17 16:00 98 Room Air 01/22/17 16:00 99.0 86 16 179/84 98 01/22/17 16:00 96 Room Air 01/22/17 15:46 98.4 96 24 167/86 98 Room Air I/O 01/22/17 01/22/17 01/22/17 01/23/17 01/23/17 01/23/17 07:00 15:00 23:00 07:00 15:00 23:00 Intake Total 963 ml Output Total 500 ml Balance 463 ml Intake Oral 480 ml IV Total 483 ml Output Urine Total 500 ml Result Diagram: 01/23/1762401/23/17624 Imaging Last Impressions Chest X-Ray 01/22/17 1550 Signed Impressions: Service Date/Time: Sunday, January 22, 2017 15:48 - CONCLUSION: No acute cardiopulmonary disease identified. Ildefonso Askew MD Neck CTA 01/22/17 0000 Signed Impressions: Service Date/Time: Sunday, January 22, 2017 17:13 - CONCLUSION: Normal examination. Girish Aj MD Head CTA 01/22/17 0000 Signed Impressions: Service Date/Time: Sunday, January 22, 2017 17:13 - CONCLUSION: Luminal irregularity with focal narrowing and possible small filling defect identified in an M2 branch of left middle cerebral artery. No evidence of filling defects in the internal carotid arteries or M1 branches Normal posterior circulation. Report called to the emergency department. Girish Aj MD Head CT 01/22/17 0000 Signed Impressions: Service Date/Time: Sunday, January 22, 2017 17:01 - CONCLUSION: Small hyperdense focus in the left basal ganglia representing either focal calcification or a very small hemorrhage. Otherwise normal appearing brain. Girish Aj MD Chest/Thorax CTA 01/22/17 0000 Signed Impressions: Service Date/Time: Sunday, January 22, 2017 17:18 - CONCLUSION: Normal examination. No evidence of pulmonary embolism or thoracic aortic dissection. Girish Aj MD Brain MRI 01/22/17 0000 Signed Impressions: Service Date/Time: Sunday, January 22, 2017 18:18 - CONCLUSION: No evidence of acute intracranial findings. No evidence of hemorrhage. Ildefonso Askew MD Objective Remarks obese, NAD anicteric, pupils equally reactive to light no facial asymmetry good gag no nuchal rigidity lungs clear regular rhythm abdomen- globularly soft, nontender extremities no edema grossly no sensory deficits motor 5/5 all extremities absent Babinski A/P Problem List: (1) Chest pain ICD Code: R07.9 Status: Acute (2) CVA (cerebral vascular accident) ICD Code: I63.9 Status: Acute (3) Leukocytosis ICD Code: D72.829 Status: Acute (4) DM (diabetes mellitus) ICD Code: E11.9 Status: Acute (5) Tobacco abuse ICD Code: Z72.0 Status: Acute Assessment and Plan 41 years old male Chest Pain: acute onset of chest pain w/ radiation to back, concern for dissection, CTA Chest normal,CXR w/ no acute abnormalitiesEKG w/ no acute ischemia. Currently chest pain free. Check serial cardiac enzymes, lipid profile, Hgb A1c, ASA, Statin, hold B-tk in light of CVA. Check Echo. CVA: acute episode of facial droop and right-sided weakness while in ER, symptoms persistent. No slurred speech. CT Head w/ possible left basal ganglia hemorrhage, ASA, statins Dr. Lindsey ff not TPA candidate. PT/Speech, consult Hypertension start VICKY- Lisinopril 2.5 mg daily UTI- no urinary symptoms start ciprofloxacin 500 mg po bid. ff final Cand S monitor for vagiitis- per patient gets candidiasis vaginisis on antibotics DM:, uncontrolled. A1C 11.4. diabetes teaching/nutrtion consult in the past on gly[place]- was "taken off" will benefit from metformin- will start eventually- received IV contrast study start 7030 bid 5 units will benefit from VICKY. check urine microalbumin Obesity - counselled on weight reduction and diet and exercise Tobacco Abuse: states history of HAD- no wheezes. On Albuterol MDIs qid Pt counselled. Ativan prn. No NicoDerm to avoid vasoconstriction. Cannabinoids use- counselled DVT Prophylaxis: SCD/Teds.. Start Lovenox Social work for d/c planning as needed. Problem Qualifiers (1) Chest pain: Qualified Code: R07.9 - Chest pain, unspecified type (2) CVA (cerebral vascular accident): Qualified Code: I63.512 - Cerebrovascular accident (CVA) due to stenosis of left middle cerebral artery Serafin Sharp MD Jan 23, 2017 14:15
[2017-01-23] MEDS ORDERED: LISINOPRIL 5 MG TAB PO SCH (14:30)
[2017-01-23] MEDS: ENOXAPARIN SODIUM 30 MG/0.3 ML SYRINGE SQ SCH (15:19)
[2017-01-23] MEDS: ASPIRIN EC 325 MG TABEC PO SCH (15:20)
[2017-01-23] MEDS ORDERED: MORPHINE SULFATE 4 MG/ML INJ IV PUSH PRN ×2 (16:00)
[2017-01-23] MEDS ORDERED: INSULIN HUMAN NPH/R 70/30 1,000 UNITS/10 ML VIAL SQ SCH (17:00)
[2017-01-23 21:13] LABS: MICRO ALBUMIN RANDOM URINE RAW 52.5 MG/L (0.0-30.0)
[2017-01-23] MEDS: PRAVASTATIN SOD 40 MG TAB PO SCH (22:23)
[2017-01-23] MEDS: CIPROFLOXACIN 500 MG TAB PO SCH (22:24)
[2017-01-24] VITALS (29 sets, daily range): BP systolic 137–161; BP diastolic 79–97; PULSE 76–99; RESP 18–20; TEMP 98.2–98.9; O2SAT 96–99
[2017-01-24] MEDS: NITROGLYCERIN 0.4 MG SL 25 TABS/BTL SL PRN (00:07)
[2017-01-24] MEDS: ACETAMINOPHEN/HYDROcodone 325 MG/5 MG TAB PO PRN ×2 (00:29→20:42)
[2017-01-24] MEDS: INSULIN ASPART SUPPLEMENTAL SCALE SQ SCH ×4 (06:33→21:36)
[2017-01-24] MEDS: SODIUM CHLORIDE 0.9% FLUSH 5 ML FLUSH IV FLUSH SCH ×2 (09:00→20:42)
[2017-01-24] MEDS: DOCUSATE SODIUM 50 MG/SENNA 8.6 MG TAB PO SCH ×2 (09:17→20:42)
[2017-01-24] MEDS: LISINOPRIL 5 MG TAB PO SCH (09:18)
[2017-01-24] MEDS: ASPIRIN EC 325 MG TABEC PO SCH (09:18)
[2017-01-24] MEDS: SODIUM CHLOR 0.9% 1000 ML INJ 1,000 ML IV SCH (09:18)
[2017-01-24] MEDS: CIPROFLOXACIN 500 MG TAB PO SCH ×2 (09:18→20:41)
[2017-01-24] MEDS: INSULIN HUMAN NPH/R 70/30 1,000 UNITS/10 ML VIAL SQ SCH ×2 (09:23→17:43)
--- NOTE | 2017-01-24 13:16 | HHI.PR ---
Subjective Remarks right UE strength stronger no headaches, chest pain when moveing no shortness of breath Objective Vitals Vital Signs Date Time Temp Pulse Resp B/P Pulse Ox O2 Delivery O2 Flow Rate FiO2 01/24/17 12:00 97 01/24/17 11:00 76 01/24/17 11:00 98.9 77 19 157/92 99 01/24/17 10:00 80 01/24/17 09:00 80 01/24/17 08:00 80 01/24/17 07:15 83 01/24/17 07:15 98.5 85 18 145/87 97 01/24/17 06:10 78 01/24/17 05:01 82 01/24/17 04:00 80 01/24/17 03:23 98.2 85 20 160/92 99 01/24/17 03:00 79 01/24/17 02:00 82 01/24/17 01:00 84 01/24/17 00:00 84 01/23/17 23:55 98.3 89 21 173/92 97 01/23/17 23:00 81 01/23/17 22:02 21 01/23/17 22:00 80 01/23/17 21:00 82 01/23/17 20:00 78 01/23/17 19:45 98.2 82 20 144/82 97 01/23/17 19:15 87 01/23/17 18:00 82 01/23/17 17:41 18 01/23/17 17:00 86 01/23/17 16:00 80 01/23/17 16:00 98.9 80 18 169/95 97 01/23/17 14:00 80 I/O 01/23/17 01/23/17 01/23/17 01/24/17 01/24/17 01/24/17 07:00 15:00 23:00 07:00 15:00 23:00 Intake Total 963 ml 1094 ml Output Total 500 ml Balance 463 ml 1094 ml Intake Oral 480 ml 480 ml IV Total 483 ml 614 ml Output Urine Total 500 ml # Voids 2 Result Diagram: 01/23/17 0625 01/23/17 0625 Imaging Last Impressions Chest X-Ray 01/22/17 1550 Signed Impressions: Service Date/Time: Saturday, January 22, 2017 15:48 - CONCLUSION: No acute cardiopulmonary disease identified. Ildefonso Askew MD Neck CTA 01/22/17 Signed Impressions: Service Date/Time: Sunday, January 22, 2017 17:13 - CONCLUSION: Normal examination. Girish Aj MD Head CTA 01/22/17 Signed Impressions: Service Date/Time: Sunday, January 22, 2017 17:13 - CONCLUSION: Luminal irregularity with focal narrowing and possible small filling defect identified in an M2 branch of left middle cerebral artery. No evidence of filling defects in the internal carotid arteries or M1 branches Normal posterior circulation. Report called to the emergency department. Girish Aj MD Head CT 01/22/17 Signed Impressions: Service Date/Time: Sunday, January 22, 2017 17:01 - CONCLUSION: Small hyperdense focus in the left basal ganglia representing either focal calcification or a very small hemorrhage. Otherwise normal appearing brain. Girish Aj MD Chest/Thorax CTA 01/22/17 Signed Impressions: Service Date/Time: Sunday, January 22, 2017 17:18 - CONCLUSION: Normal examination. No evidence of pulmonary embolism or thoracic aortic dissection. Girish Aj MD Brain MRI 01/22/17 Signed Impressions: Service Date/Time: Sunday, January 22, 2017 18:18 - CONCLUSION: No evidence of acute intracranial findings. No evidence of hemorrhage. Ildefonso Askew MD Objective Remarks obese, NAD anicteric, pupils equally reactive to light no facial asymmetry good gag no nuchal rigidity lungs clear regular rhythm abdomen- globularly soft, nontender extremities no edema grossly no sensory deficits motor 5/5 absent Babinski A/P Problem List: (1) Chest pain ICD Code: R07.9 Status: Acute (2) CVA (cerebral vascular accident) ICD Code: I63.9 Status: Acute (3) Leukocytosis ICD Code: D72.829 Status: Acute (4) DM (diabetes mellitus) ICD Code: E11.9 Status: Acute (5) Tobacco abuse ICD Code: Z72.0 Status: Acute Assessment and Plan 41 years old male Atypical Chest Pain: acute onset of chest pain w/ radiation to back, negative for dissection CTA Chest normal,CXR w/ no acute abnormalitiesEKG w/ no acute ischemia. tropnins , EKG negative. awaiting Echo. get myocardial perfusion study- multiple risks factors TIA- CVA: acute episode of facial droop and right-sided weakness while in ER, symptoms persistent. No slurred speech. CT Head w/ possible left basal ganglia hemorrhage, ASA, statins Dr. Lindsey ff not TPA candidate. PT/Speech, consult Hypertension start VICKY- Lisinopril- up to 5 mg daily. Add HCYZ 25 mg daily Gram negative UTI- c and s pending ciprofloxacin 500 mg po bid. ff final Cand S monitor for vagiitis- per patient gets candidiasis vaginisis on antibotics DM:, uncontrolled. A1C 11.4. diabetes teaching/nutrtion consult in the past on gly[place]- was "taken off" will benefit from metformin- will start eventually- received IV contrast study increase 7030 bid 8 units start metformin in am will benefit from VICKY. check urine microalbumin Obesity - counselled on weight reduction and diet and exercise Tobacco Abuse: states history of HAD- no wheezes. On Albuterol MDIs qid Pt counselled. Ativan prn. No NicoDerm to avoid vasoconstriction. Cannabinoids use- counselled DVT Prophylaxis: SCD/Teds.. Lovenox Social work for d/c planning as needed. CM - SNF Problem Qualifiers (1) Chest pain: Qualified Code: R07.9 - Chest pain, unspecified type (2) CVA (cerebral vascular accident): Qualified Code: I63.512 - Cerebrovascular accident (CVA) due to stenosis of left middle cerebral artery Serafin Sharp MD Jan 24, 2017 13:16
[2017-01-24] MEDS ORDERED: PILL SPLITTER OTHER PRN (13:45)
[2017-01-24] MEDS: ENOXAPARIN SODIUM 30 MG/0.3 ML SYRINGE SQ SCH (15:11)
[2017-01-24] MEDS: HYDROCHLOROTHIAZIDE 25 MG TAB PO SCH (15:11)
[2017-01-24] MEDS ORDERED: ATROPINE SULFATE 1 MG/10 ML SYRINGE ONE (15:16)
[2017-01-24] MEDS ORDERED: EPINEPHrine HCL (1:10,000) 1 MG/10 ML SYRINGE ONE (15:16)
[2017-01-24] MEDS: ACETAMINOPHEN 325 MG TAB PO PRN (16:54)
--- NOTE | 2017-01-24 19:30 | ECHRPT ---
Indication: CVA/TIA CONCLUSIONS BP: 153 / 78 HR: 90 Rhythm: Sinus MEASUREMENTS (Male / Female) Normal Values Technical Quality:Good 2D ECHO LV Diastolic Diameter PLAX 5.5 cm 4.2 - 5.9 / 3.9 - 5.3 cm LV Systolic Diameter PLAX 3.8 cm IVS Diastolic Thickness 1.1 cm 0.6 - 1.0 / 0.6 - 0.9 cm LVPW Diastolic Thickness 1.1 cm 0.6 - 1.0 / 0.6 - 0.9 cm LV Relative Wall Thickness 0.4 RV Internal Dim ED PLAX 2.3 cm LVOT Diameter 2.0 cm LA Systolic Diameter LX 3.3 cm 3.0 - 4.0 / 2.7 - 3.8 cm LV Ejection Fraction MOD 4C 55.1 % LV Cardiac Index MOD 4C 1332.7 cm/minm LV Ejection Fraction 4C AL 59.2 % LV Cardiac Index 4C AL 1409.7 cm/minm M-MODE Aortic Root Diameter MM 3.3 cm AV Cusp Separation MM 2.5 cm DOPPLER AV Peak Velocity 148.0 cm/s AV Peak Gradient 8.8 mmHg LVOT Peak Velocity 106.0 cm/s LVOT Peak Gradient 4.5 mmHg AV Area Cont Eq pk 2.3 cm MV Area PHT 4.2 cm Mitral E Point Velocity 95.3 cm/s Mitral A Point Velocity 94.3 cm/s Mitral E to A Ratio 1.0 PV Peak Velocity 93.7 cm/s PV Peak Gradient 3.5 mmHg FINDINGS LEFT VENTRICLE Normal left ventricular size. Wall thickness is measured at the upper limits of normal. The left ventricular systolic function is normal with an estimated ejection fraction in the range of 55-60%. No regional wall motion abnormalities are present. RIGHT VENTRICLE Normal right ventricular size and systolic function. LEFT ATRIUM The left atrial size is normal. RIGHT ATRIUM The right atrial size is normal. ATRIAL SEPTUM Normal atrial septal thickness without atrial level shunting by limited color doppler interrogation. AORTA The aortic root and proximal ascending aorta are normal in size on limited imaging. MITRAL VALVE Structurally normal mitral valve. No mitral valve stenosis or regurgitation. AORTIC VALVE Trileaflet aortic valve. No aortic valve stenosis or regurgitation. TRICUSPID VALVE Structurally normal tricuspid valve. No tricuspid valve stenosis or regurgitation. PULMONARY VALVE The pulmonary valve is not well visualized. VESSELS The inferior vena cava is dilated. PERICARDIUM No pericardial effusion. Dashawn Riley MD, FACC (Electronically Signed) Final Date:24 January 2017 19:29
[2017-01-24] MEDS: METOPROLOL TARTRATE 25 MG TAB PO SCH (20:42)
[2017-01-24] MEDS: PRAVASTATIN SOD 40 MG TAB PO SCH (20:42)
[2017-01-25] VITALS (25 sets, daily range): BP systolic 135–178; BP diastolic 77–91; PULSE 77–96; RESP 18–19; TEMP 97.9–98.8; O2SAT 96–99
[2017-01-25] MEDS: INSULIN ASPART SUPPLEMENTAL SCALE SQ SCH ×4 (06:41→20:15)
[2017-01-25] MEDS: DOCUSATE SODIUM 50 MG/SENNA 8.6 MG TAB PO SCH ×2 (09:00→20:11)
[2017-01-25] MEDS: SODIUM CHLORIDE 0.9% FLUSH 5 ML FLUSH IV FLUSH SCH ×2 (09:00→20:11)
[2017-01-25] MEDS ORDERED: REGADENOSON INJ 0.4 MG/5 ML SYR ONE (09:14)
[2017-01-25] MEDS: CIPROFLOXACIN 500 MG TAB PO SCH ×2 (11:05→20:11)
[2017-01-25] MEDS: ASPIRIN EC 325 MG TABEC PO SCH (11:05)
[2017-01-25] MEDS: HYDROCHLOROTHIAZIDE 25 MG TAB PO SCH (11:05)
[2017-01-25] MEDS: ACETAMINOPHEN/HYDROcodone 325 MG/5 MG TAB PO PRN ×2 (11:05→22:36)
[2017-01-25] MEDS: LISINOPRIL 5 MG TAB PO SCH (11:05)
[2017-01-25] MEDS: METOPROLOL TARTRATE 25 MG TAB PO SCH ×2 (11:05→20:11)
[2017-01-25] MEDS: INSULIN HUMAN NPH/R 70/30 1,000 UNITS/10 ML VIAL SQ SCH ×2 (11:07→17:50)
--- NOTE | 2017-01-25 11:38 | RADRPT ---
EXAM DATE/TIME: 01/24/2017 15:15 [facility] COMPARISON: No previous studies available for comparison. INDICATIONS : Mid chest pain for one day. Angina. DOSE: 32.1 mCi Tc99m Myoview at stress. 31.2 mCi Tc99m Myoview at rest. 0.4 mg Lexiscan STRESS SYMPTOMS: Dyspne and headache. EJECTION FRACTION: 45% MEDICAL HISTORY : Diabetes mellitus type 2. Asthma. SURGICAL HISTORY : Tubal ligation. ENCOUNTER: Initial ACUITY: 1 day PAIN SCALE: 6/10 LOCATION: Midsternal chest TECHNIQUE: The patient underwent pharmacologic stress with infusion of prescribed dose. Continuous ECG tracing was monitored during stress. Gated SPECT imaging was performed after stress and conventional SPECT i maging was performed at rest. The examination was performed on a SPECT/CT scanner, both attenuation and non-corrected datasets were reviewed. FINDINGS: DISTRIBUTION: The maximum perfused segment at stress is in the septal wall. PERFUSION STUDY: The pattern of perfusion at stress is within normal limits. The exam is somewhat limited due to a lar ge amount of gut activity. GATED STUDY: The ejection fraction is estimated at 45%. The exam does demonstrate some hypokinesis of the anterior wall and a dyskinetic wall motion segment in the inferoseptal wall. CONCLUSION: 1. Limited examination due to large amount of gut activity. No definite reversible perfusion abnormal ity is identified. The ejection fraction is somewhat low at 45%. Please see above. If there is strong clinical suspicion for disease CT coronary angiogram could be performed. RISK CATEGORY: Low (<1% Annual Mortality Rate) Fidencio Castanon MD on January 25, 2017 at 11:34 Board Certified Radiologist. This report was verified electronically.
--- NOTE | 2017-01-25 12:51 | HHI.PR ---
Subjective Remarks no chest pain no weakness, headaches, nausea or vomiting Objective Vitals Vital Signs Date Time Temp Pulse Resp B/P Pulse Ox O2 Delivery O2 Flow Rate FiO2 01/25/17 12:13 19 01/25/17 12:00 84 01/25/17 11:00 83 01/25/17 11:00 98.8 86 19 178/88 97 01/25/17 08:00 83 01/25/17 07:15 98.4 83 19 147/91 96 01/25/17 07:15 92 01/25/17 06:19 80 01/25/17 05:00 80 01/25/17 04:00 80 01/25/17 03:28 98.7 86 18 159/90 96 01/25/17 03:00 82 01/25/17 02:14 77 01/25/17 02:00 88 01/25/17 01:00 86 01/25/17 00:00 80 01/24/17 23:27 98.4 85 20 161/79 97 01/24/17 23:00 80 01/24/17 22:00 88 01/24/17 21:32 99 21 01/24/17 21:00 86 01/24/17 20:12 98.2 81 18 137/84 99 01/24/17 20:00 84 01/24/17 19:00 85 01/24/17 18:26 19 01/24/17 18:05 85 01/24/17 17:00 79 01/24/17 16:00 88 01/24/17 15:00 98.8 80 18 160/97 96 01/24/17 15:00 77 01/24/17 14:00 80 01/24/17 13:16 99 21 01/24/17 13:00 99 I/O 01/24/17 01/24/17 01/24/17 01/25/17 01/25/17 01/25/17 06:59 14:59 22:59 06:59 14:59 22:59 Intake Total 1094 ml 310 ml 633 ml Output Total 1200 ml Balance 1094 ml 310 ml -567 ml Intake Oral 480 ml 240 ml IV Total 614 ml 310 ml 393 ml Output Urine Total 1200 ml # Voids 2 3 Result Diagram: 01/23/1762401/23/17624 Imaging Last Impressions Myocardial Perfusion Scan Nuc Med 01/24/17 0000 Signed Impressions: Service Date/Time: Tuesday, January 24, 2017 15:15 - CONCLUSION: 1. Limited examination due to large amount of gut activity. No definite reversible perfusion abnormality is identified. The ejection fraction is somewhat low at 45%%. Please see above. If there is strong clinical suspicion for disease CT coronary angiogram could be performed. RISK CATEGORY: Low (<1%% Annual Mortality Rate) Fidencio Castanon MD Chest X-Ray 01/22/17 1550 Signed Impressions: Service Date/Time: Sunday, January 22, 2017 15:48 - CONCLUSION: No acute cardiopulmonary disease identified. Ildefonso Askew MD Neck CTA 01/22/17 0000 Signed Impressions: Service Date/Time: Sunday, January 22, 2017 17:13 - CONCLUSION: Normal examination. Girish Aj MD Head CTA 01/22/17 0000 Signed Impressions: Service Date/Time: Sunday, January 22, 2017 17:13 - CONCLUSION: Luminal irregularity with focal narrowing and possible small filling defect identified in an M2 branch of left middle cerebral artery. No evidence of filling defects in the internal carotid arteries or M1 branches Normal posterior circulation. Report called to the emergency department. Girish Aj MD Head CT 01/22/17 0000 Signed Impressions: Service Date/Time: Sunday, January 22, 2017 17:01 - CONCLUSION: Small hyperdense focus in the left basal ganglia representing either focal calcification or a very small hemorrhage. Otherwise normal appearing brain. Girish Aj MD Chest/Thorax CTA 01/22/17 0000 Signed Impressions: Service Date/Time: Sunday, January 22, 2017 17:18 - CONCLUSION: Normal examination. No evidence of pulmonary embolism or thoracic aortic dissection. Girish Aj MD Brain MRI 01/22/17 0000 Signed Impressions: Service Date/Time: Sunday, January 22, 2017 18:18 - CONCLUSION: No evidence of acute intracranial findings. No evidence of hemorrhage. Ildefonso Askew MD Objective Remarks obese, NAD anicteric, pupils equally reactive to light no facial asymmetry good gag no nuchal rigidity lungs clear regular rhythm abdomen- globularly soft, nontender extremities no edema grossly no sensory deficits motor 5/5 , gait steady absent Babinski A/P Problem List: (1) Chest pain ICD Code: R07.9 Status: Acute (2) CVA (cerebral vascular accident) ICD Code: I63.9 Status: Acute (3) Leukocytosis ICD Code: D72.829 Status: Acute (4) DM (diabetes mellitus) ICD Code: E11.9 Status: Acute (5) Tobacco abuse ICD Code: Z72.0 Status: Acute Assessment and Plan 41 years old male Atypical Chest Pain: - acute onset of chest pain w/ radiation to back, negative for dissection CTA Chest normal,CXR w/ no acute abnormalities EKG w/ no acute ischemia. troponins , EKG negative. myocardial perfusion study-not diagnostic. Echo EF- 55-60& on ASA, VICKY,BB get cariology consult/recommendations ? need for cath TIA- CVA: acute episode of facial droop and right-sided weakness - Resolved. No slurred speech. CT Head w/ possible left basal ganglia hemorrhage, -neuro stable ASA, statins Dr. Lindsey ff not TPA candidate. PT/Speech, consult Hypertension VICKY- Lisinopril- up to 10 mg daily. Add HCTZ 25 mg daily. continue BB E coli UTI ciprofloxacin 500 mg po bid. ff final Cand S monitor for vaginitis- per patient gets candidiasis vaginisis on antibotics DM:, uncontrolled. A1C 11.4. diabetes teaching/nutrtion consult in the past on gly[place]- was "taken off" will benefit from metformin- will start eventually- received IV contrast study increase 7030 bid dose start metformin if no plans for dye or cath will benefit from VICKY. check urine microalbumin Obesity - counselled on weight reduction and diet and exercise Tobacco Abuse: states history of HAD- no wheezes. On Albuterol MDIs qid Pt counselled. Ativan prn. No NicoDerm to avoid vasoconstriction. Cannabinoids use- counselled DVT Prophylaxis: SCD/Teds.. Lovenox Social work for d/c planning as needed. CM -ff Problem Qualifiers (1) Chest pain: Qualified Code: R07.9 - Chest pain, unspecified type (2) CVA (cerebral vascular accident): Qualified Code: I63.512 - Cerebrovascular accident (CVA) due to stenosis of left middle cerebral artery Serafin Sharp MD Jan 25, 2017 12:51
[2017-01-25] MEDS ORDERED: LISINOPRIL 5 MG TAB PO ONE (13:00)
[2017-01-25] MEDS: ENOXAPARIN SODIUM 30 MG/0.3 ML SYRINGE SQ SCH (15:00)
[2017-01-25] MEDS: SODIUM CHLOR 0.9% 1000 ML INJ 1,000 ML IV SCH (18:27)
[2017-01-25] MEDS: PRAVASTATIN SOD 40 MG TAB PO SCH (20:11)
--- NOTE | 2017-01-25 23:27 | MB ---
cc: TREMAYNE MALCOLM DO DATE OF CONSULTATION: 01/25/2017 REASON FOR CONSULTATION: Chest pain, possible TIA. HISTORY OF PRESENT ILLNESS Amelie Bergman is a pleasant 41-year-old female who originally presented to the emergency room on January 22, 2017 at [facility] emergency room due to chest pain while she was at the [employer]. She states that she was walking around and started feeling hot as well as having chest pain. She felt right arm numbness at the time. She has never had similar symptoms to this in the past. She states that chest pain was somewhat pinching or grabbing across the right side of her chest but states that she also gets it with walking around. While in the emergency room she had an acute onset of right-sided facial droop with right upper extremity and lower extremity weakness. CT scan of the head showed a small hyperdense focus in the left basal ganglia possibly calcification or small hemorrhage. She was seen by neurology and underwent a CTA and MRI. On the CTA there is a small filling defect in the M2 branch of the left middle cerebral artery. She also one underwent a pharmacologic nuclear stress test which showed no reversible defect, although is somewhat limited due to a large amount of gut activity. In seeing her she currently denies chest pain, shortness of breath or weakness. PAST MEDICAL HISTORY 1. Asthma. 2. Diabetes mellitus. PAST SURGICAL HISTORY Denies. ALLERGIES NO KNOWN DRUG ALLERGIES. MEDICATIONS Denies. FAMILY HISTORY Denies premature coronary artery disease or sudden cardiac within the family. SOCIAL HISTORY Positive for alcohol and tobacco. Denies drugs. REVIEW OF SYSTEMS 14-systems were reviewed including osteopathic, pertinent positives and negatives above otherwise negative. PHYSICAL EXAMINATION Vital signs: Temperature 98.4, heart rate 84, blood pressure 140/82, respirations 19, pulse ox 99% on room air. In general the patient appears well, in no acute distress, alert awake and oriented x3. HEENT: Extraocular muscles intact. Mucous membranes moist. Neck: Supple. No JVD at 45 degrees. No carotid bruits heard bilaterally. Carotid upstroke is brisk in nature. Heart is regular rate and rhythm. Positive first and second heart sounds with no murmurs, gallops or rubs. Lungs: Clear to auscultation bilaterally. No wheezes, rales or rhonchi. Abdomen: Soft, nontender, nondistended. No organomegaly noted. Extremities: Show no clubbing, cyanosis or edema. Femoral and distal pulses intact bilaterally. Neurologically: No focal deficits. Skin: Warm, dry and intact. Osteopathically, no kyphoscoliosis, lordosis or paraspinal tender points. LABORATORY WORK: Hemoglobin 10.7, hematocrit 32.7, platelet count 381. Potassium 3.9, BUN 7, creatinine 0.47, hemoglobin A1c 11.4, troponin negative x3, total cholesterol 184, LDL 109, HDL 28.8, triglycerides 232. Electrocardiogram (January 22, 2017 at 15:54), sinus rhythm, no acute ST-T wave changes. IMPRESSION 1. Chest pain which is atypical for coronary insufficiency. 2. CVA / TIA with an episode of facial droop and right-sided weakness. 3. CT of the head showing possible left basoganglia hemorrhage. 1. CTA of the head showing possible small filling defect in the M2 branch of the left middle cerebral artery. 2. Uncontrolled diabetes mellitus. 3. Tobacco abuse. RECOMMENDATIONS 1. Ms. Bergman's chest pain appears relatively atypical for coronary insufficiency. 2. She underwent a stress test which showed no ischemia, although this was somewhat limited due to gastrointestinal uptake. She had an echocardiogram that showed a normal ejection fraction with no regional wall motion abnormalities. Troponins were negative showing no myocardial necrosis. 3. Because she has had a acute TIA with the above findings on CT of the head and CTA of the head, my concern would be that she is not a revascularization candidate. Overall I think that the nuclear study shows no ischemia and I would continue with medical management. 4. If further chest pain, consideration could be made for the CTA of the coronaries, but once again, I believe that with her recent TIA and neurological symptoms, she would not be a revascularization candidate. 5. We will plan on continuing aspirin, beta-tk, statin and VICKY inhibitor therapy. Further recommendations will be made based on the hospital course. Thank you for allowing me to see Amelie Bergman. Any questions, please do not hesitate to call. Tremayne Malcolm DO VG/CHUY /10:42 PM /11:07 PM
[2017-01-26] VITALS (16 sets, daily range): BP systolic 129–149; BP diastolic 64–88; PULSE 76–88; RESP 18; TEMP 98.2–98.3; O2SAT 95–98
[2017-01-26] MEDS: SODIUM CHLOR 0.9% 1000 ML INJ 1,000 ML IV SCH (04:17)
[2017-01-26] MEDS: INSULIN ASPART SUPPLEMENTAL SCALE SQ SCH ×2 (05:48→11:00)
[2017-01-26] MEDS: INSULIN HUMAN NPH/R 70/30 1,000 UNITS/10 ML VIAL SQ SCH (08:00)
[2017-01-26] MEDS: METOPROLOL TARTRATE 25 MG TAB PO SCH (08:40)
[2017-01-26] MEDS: ASPIRIN EC 325 MG TABEC PO SCH (08:40)
[2017-01-26] MEDS: CIPROFLOXACIN 500 MG TAB PO SCH (08:40)
[2017-01-26] MEDS: HYDROCHLOROTHIAZIDE 25 MG TAB PO SCH (08:40)
[2017-01-26] MEDS: DOCUSATE SODIUM 50 MG/SENNA 8.6 MG TAB PO SCH (08:40)
[2017-01-26] MEDS: SODIUM CHLORIDE 0.9% FLUSH 5 ML FLUSH IV FLUSH SCH (09:00)
[2017-01-26] MEDS ORDERED: LISINOPRIL 5 MG TAB PO SCH (09:00)
--- NOTE | 2017-01-26 10:23 | PD.CARD.PN ---
Subjective Subjective Remarks No events overnight No chest pain/SOB Objective Medications Current Medications Medications (Trade) Dose Ordered Sig/Josep Route Start Time Stop Time Status Last Admin (NS Flush) 2 ml BID IV FLUSH 01/22/17 21:00 01/26/17 09:00 IV Flush 2 ml 2 ml UNSCH PRN IV FLUSH 01/22/17 19:45 (NS 1000 ml Inj) 1,000 ml @ 30 mls/hr Q24H IV 01/22/17 20:00 01/25/17 18:27 (Vasotec Inj) 1.25 mg Q4H PRN IV 01/22/17 19:45 (Pravachol) 40 mg HS PO 01/22/17 21:00 01/25/17 20:11 (NovoLOG SUPPLEMENTAL SCALE) 1 ACHS SQ 01/22/17 21:00 01/26/17 05:48 (D50w (Vial) Inj) 50 ml UNSCH PRN IV PUSH 01/22/17 19:45 (Glucagon Inj) 1 mg UNSCH PRN OTHER 01/22/17 19:45 (Zofran Inj) 4 mg Q6H PRN IVP 01/22/17 19:45 (Narcan Inj) 0.4 mg UNSCH PRN IV 01/22/17 19:45 (Mary-Colace) 1 tab BID PO 01/22/17 21:00 01/26/17 08:40 (Milk Of Magnesia Liq) 30 ml Q12H PRN PO 01/22/17 19:45 (Senokot) 17.2 mg Q12H PRN PO 01/22/17 19:45 (Dulcolax Supp) 10 mg DAILY PRN RECTAL 01/22/17 19:45 (Lactulose Liq) 30 ml DAILY PRN PO 01/22/17 19:45 (Nitrostat Sl) 0.4 mg Q5M PRN SL 01/22/17 23:45 01/24/17 00:07 (Tylenol) 650 mg Q6HR PRN PO 01/22/17 23:45 01/24/17 16:54 ([place] 5-325 Mg) 1 tab Q4H PRN PO 01/22/17 23:45 01/25/17 22:36 (Ecotrin Ec) 325 mg DAILY PO 01/23/17 14:30 01/26/17 08:40 (Cipro) 500 mg Q12HR PO 01/23/17 21:00 01/26/17 08:40 (Morphine Inj) 0.5 mg Q4HR PRN IV PUSH 01/23/17 16:00 01/23/17 19:44 (Lovenox Inj) 30 mg Q24H SQ 01/23/17 15:00 01/24/17 15:11 (Hydrodiuril) 25 mg DAILY PO 01/24/17 14:00 01/26/17 08:40 (Lopressor) 12.5 mg Q12HR PO 01/24/17 21:00 01/26/17 08:40 (Pill Splitter) 1 ea UNSCH PRN OTHER 01/24/17 13:45 (NovoLIN 70/30 INJ) 12 units BID@,17 SQ 01/25/17 17:00 01/25/17 17:50 (Prinivil) 10 mg DAILY PO 01/26/17 09:00 01/26/17 08:41 Vital Signs / I&O Vital Signs Date Time Temp Pulse Resp B/P Pulse Ox O2 Delivery O2 Flow Rate FiO2 01/26/17 06:07 84 01/26/17 05:22 81 01/26/17 04:14 98.2 84 129/64 97 01/26/17 04:00 78 01/26/17 03:00 77 01/26/17 02:00 80 01/26/17 01:00 80 01/26/17 00:00 88 01/25/17 23:50 97.9 83 135/77 98 01/25/17 23:00 82 01/25/17 22:00 82 01/25/17 21:00 90 01/25/17 20:00 97.9 83 135/77 98 01/25/17 20:00 82 01/25/17 19:00 83 01/25/17 18:00 85 01/25/17 17:00 86 01/25/17 16:10 84 01/25/17 15:00 96 01/25/17 15:00 98.4 84 19 140/82 99 01/25/17 13:35 99 21 01/25/17 13:00 85 01/25/17 12:13 19 01/25/17 12:00 84 01/25/17 11:00 83 01/25/17 11:00 98.8 86 19 178/88 97 I/O 01/25/17 01/25/17 01/25/17 01/26/17 01/26/17 01/26/17 06:59 14:59 22:59 06:59 14:59 22:59 Intake Total 633 ml 240 ml 880 ml Output Total 1200 ml Balance -567 ml 240 ml 880 ml Intake Oral 240 ml 240 ml 480 ml IV Total 393 ml 400 ml Output Urine Total 1200 ml # Voids 3 3 Physical Exam GENERAL: NAD, AAOx3 SKIN: Warm and dry. HEAD: Atraumatic. Normocephalic. EYES: Pupils equal and round. No scleral icterus. No injection or drainage. ENT: No nasal bleeding or discharge. Mucous membranes pink and moist. NECK: Trachea midline. No JVD. CARDIOVASCULAR: Regular rate and rhythm. RESPIRATORY: No accessory muscle use. Clear to auscultation. Breath sounds equal bilaterally. GASTROINTESTINAL: Abdomen soft, non-tender, nondistended. Hepatic and splenic margins not palpable. MUSCULOSKELETAL: Trace edema NEUROLOGICAL: Awake and alert. No obvious cranial nerve deficits. Motor grossly within normal limits. Five out of 5 muscle strength in the arms and legs. Normal speech. PSYCHIATRIC: Appropriate mood and affect; insight and judgment normal. Assessment and Plan Problem List: (1) CVA (cerebral vascular accident) (2) Chest pain (3) DM (diabetes mellitus) (4) Tobacco abuse Assessment and Plan 1) TIA/CVA in the ER with filling defect noted 2) Chest pain very atypical for coronary insufficiency Nuclear showing no ischemia, but does have increased gut intake which does limit the specificity/sensitivity of the test Troponins negative showing no myocardial necrosis Not a revascularization candidate at this time due to neurologic changes, would con't medical management ASA/BB/Statin/VICKY-I 3) If further chest pain, could consider CTA coronaries 4) Cardiovascularly stable for discharge If further symptoms, will return to the ER and plan may need to be changed to further evaluate Problem Qualifiers (1) CVA (cerebral vascular accident): Qualified Code: I63.512 - Cerebrovascular accident (CVA) due to stenosis of left middle cerebral artery (2) Chest pain: Qualified Code: R07.9 - Chest pain, unspecified type Tremayne Lopez DO Jan 26, 2017 10:23
[2017-01-26] MEDS ORDERED: BLOOD GLUCOSE M1 KIT (11:08)
[2017-01-26] MEDS ORDERED: BLOOD GLUCOSE T1 TES (11:08)
--- NOTE | 2017-01-26 11:13 | HHI.PR ---
Subjective Remarks feeling better no complains of chest pains shortensss of breath or weakness Objective Vitals Vital Signs Date Time Temp Pulse Resp B/P Pulse Ox O2 Delivery O2 Flow Rate FiO2 01/26/17 10:00 82 01/26/17 09:00 80 01/26/17 08:00 98.3 82 18 149/88 97 01/26/17 08:00 76 01/26/17 07:00 82 01/26/17 06:07 84 01/26/17 05:22 81 01/26/17 04:14 98.2 84 129/64 97 01/26/17 04:00 78 01/26/17 03:00 77 01/26/17 02:00 80 01/26/17 01:00 80 01/26/17 00:00 88 01/25/17 23:50 97.9 83 135/77 98 01/25/17 23:00 82 01/25/17 22:00 82 01/25/17 21:00 90 01/25/17 20:00 97.9 83 135/77 98 01/25/17 20:00 82 01/25/17 19:00 83 01/25/17 18:00 85 01/25/17 17:00 86 01/25/17 16:10 84 01/25/17 15:00 96 01/25/17 15:00 98.4 84 19 140/82 99 01/25/17 13:35 99 21 01/25/17 13:00 85 01/25/17 12:13 19 01/25/17 12:00 84 I/O 01/25/17 01/25/17 01/25/17 01/26/17 01/26/17 01/26/17 06:59 14:59 22:59 06:59 14:59 22:59 Intake Total 633 ml 240 ml 880 ml Output Total 1200 ml Balance -567 ml 240 ml 880 ml Intake Oral 240 ml 240 ml 480 ml IV Total 393 ml 400 ml Output Urine Total 1200 ml # Voids 3 3 Result Diagram: 01/23/17 0625 01/23/17 0625 Imaging Last Impressions Myocardial Perfusion Scan Nuc Med 01/24/17 0000 Signed Impressions: Service Date/Time: Tuesday, January 24, 2017 15:15 - CONCLUSION: 1. Limited examination due to large amount of gut activity. No definite reversible perfusion abnormality is identified. The ejection fraction is somewhat low at 45%%. Please see above. If there is strong clinical suspicion for disease CT coronary angiogram could be performed. RISK CATEGORY: Low (<1%% Annual Mortality Rate) Fidencio Castanon MD Chest X-Ray 01/22/17 1550 Signed Impressions: Service Date/Time: Sunday, January 22, 2017 15:48 - CONCLUSION: No acute cardiopulmonary disease identified. Ildefonso Askew MD Neck CTA 01/22/17 0000 Signed Impressions: Service Date/Time: Sunday, January 22, 2017 17:13 - CONCLUSION: Normal examination. Girish Aj MD Head CTA 01/22/17 0000 Signed Impressions: Service Date/Time: Sunday, January 22, 2017 17:13 - CONCLUSION: Luminal irregularity with focal narrowing and possible small filling defect identified in an M2 branch of left middle cerebral artery. No evidence of filling defects in the internal carotid arteries or M1 branches Normal posterior circulation. Report called to the emergency department. Girish Aj MD Head CT 01/22/17 0000 Signed Impressions: Service Date/Time: Sunday, January 22, 2017 17:01 - CONCLUSION: Small hyperdense focus in the left basal ganglia representing either focal calcification or a very small hemorrhage. Otherwise normal appearing brain. Girish Aj MD Chest/Thorax CTA 01/22/17 0000 Signed Impressions: Service Date/Time: Sunday, January 22, 2017 17:18 - CONCLUSION: Normal examination. No evidence of pulmonary embolism or thoracic aortic dissection. Girish Aj MD Brain MRI 01/22/17 0000 Signed Impressions: Service Date/Time: Sunday, January 22, 2017 18:18 - CONCLUSION: No evidence of acute intracranial findings. No evidence of hemorrhage. Ildefonso Askew MD Objective Remarks obese, NAD anicteric, pupils equally reactive to light no facial asymmetry good gag no nuchal rigidity lungs clear regular rhythm abdomen- globularly soft, nontender extremities no edema grossly no sensory deficits motor 5/5 , gait steady absent Babinski A/P Problem List: (1) Chest pain ICD Code: R07.9 Status: Acute (2) CVA (cerebral vascular accident) ICD Code: I63.9 Status: Acute (3) Leukocytosis ICD Code: D72.829 Status: Acute (4) DM (diabetes mellitus) ICD Code: E11.9 Status: Acute (5) Tobacco abuse ICD Code: Z72.0 Status: Acute Assessment and Plan 41 years old male Atypical Chest Pain: - acute onset of chest pain w/ radiation to back, negative for dissection CTA Chest normal,CXR w/ no acute abnormalities EKG w/ no acute ischemia. troponins , EKG negative. myocardial perfusion study-not diagnostic. Echo EF- 55-60& on ASA, VICKY,BB DC today- medical management TIA- CVA: acute episode of facial droop and right-sided weakness - Resolved. No slurred speech. MRI brain negative neuro deficits resolved ASA, statins Dr. Lindsey ff- OP ff up Hypertension VICKY- Lisinopril- up to 10 mg daily. Add HCTZ 25 mg daily. continue BB E coli UTI ciprofloxacin 500 mg po bid- compete course monitor for vaginitis- per patient gets candidiasis vaginisis on antibotics- no discharge DM:, uncontrolled. A1C 11.4. diabetes teaching/nutrtion consult in the past on [place]- was "taken off" will benefit from metformin- will start eventually- start Metformin 500 mg po bid increase 7030 bid dose reinforced diabetes teaching- scripts for glucometer and strips given Obesity - counselled on weight reduction and diet and exercise Tobacco Abuse: states history of HAD- no wheezes. On Albuterol MDIs qid Pt counselled. Ativan prn. No NicoDerm to avoid vasoconstriction. Cannabinoids use- counselled DC home today CM for assistance - FF up with PCP- [facility]- Dr. Iva Cassidy Problem Qualifiers (1) Chest pain: Qualified Code: R07.9 - Chest pain, unspecified type (2) CVA (cerebral vascular accident): Qualified Code: I63.512 - Cerebrovascular accident (CVA) due to stenosis of left middle cerebral artery Serafin Sharp MD Jan 26, 2017 11:13 Serafin Sharp MD Jan 26, 2017 11:13
[2017-01-26] MEDS ORDERED: metFORMIN HCL 500 MG TAB PO SCH (11:15)
[2017-01-26] MEDS ORDERED: LISI-519 PO (11:23)
[2017-01-26] MEDS ORDERED: METF500 PO (11:23)
[2017-01-26] MEDS ORDERED: CIPR-9 PO (11:23)
[2017-01-26] MEDS ORDERED: HYDR25TA5 PO (11:23)
[2017-01-26] MEDS ORDERED: NOVO7030P2 SQ (11:23)
[2017-01-26] MEDS ORDERED: PRAV40TA PO (11:23)
[2017-01-26] MEDS ORDERED: DIFL150T PO (11:25)
[2017-01-26] MEDS ORDERED: ASPI325T33 PO (11:26)
--- NOTE | 2017-01-26 11:30 | HHI.DS ---
Discharge Summary Admission Date Jan 22, 2017 at 19:17 Discharge Date: Jan 26, 2017 Admitting Diagnosis chest pain; ?CVA; R facial droop; RUE weakness; filling defect L MCA (1) Chest pain ICD Code: R07.9 - Chest pain, unspecified Diagnosis: Principal (2) TIA (transient ischemic attack) ICD Code: G45.9 - Transient cerebral ischemic attack, unspecified Diagnosis: Principal (3) Leukocytosis ICD Code: D72.829 - Elevated white blood cell count, unspecified Diagnosis: Secondary (4) DM (diabetes mellitus) ICD Code: E11.9 - Type 2 diabetes mellitus without complications Diagnosis: Secondary (5) Tobacco abuse ICD Code: Z72.0 - Tobacco use Diagnosis: Secondary Procedures none Brief History - From Admission This is a 41-year-old female with a PMH of Asthma and DM (not on medication) who presented to the ER with complaints of chest pain starting earlier today while walking at the [employer]. States she felt hot and had sudden onset of chest pain w/ radiation to back in addition to RUE numbness. No h/o similar symptoms in the past. On arrival, BP 167/86, HR 96, O2 sat 98% on RA, Afebrile. CBC unremarkable for WBC 12.2. Chemistry essentially unremarkable except for BS 322. Troponin negative. INR 0.9. While in ER, pt w/ acute onset of right-sided facial droop and RUE/RLE weakness, symptoms persistent. Stroke Alert initiated. CT Have a small hyperdense focus in the left basal ganglia possibly calcification or small hemorrhage. CTA Head with luminal irregularity of left MCA. CTA Neck normal. CXR with no acute findings. CTA Chest was no evidence of dissection. Urology consulted by ER physician, recommended MRI Brain for further evaluation of possible hemorrhage. MRI Brain negative for acute hemorrhage. Dr. Lindsey recommended treatment w/ ASA only at this time, not TPA candidate. CBC/BMP: 01/23/17 0625 01/23/17 0625 Imaging Last Impressions Myocardial Perfusion Scan Nuc Med 01/24/17 0000 Signed Impressions: Service Date/Time: Tuesday, January 24, 2017 15:15 - CONCLUSION: 1. Limited examination due to large amount of gut activity. No definite reversible perfusion abnormality is identified. The ejection fraction is somewhat low at 45%%. Please see above. If there is strong clinical suspicion for disease CT coronary angiogram could be performed. RISK CATEGORY: Low (<1%% Annual Mortality Rate) Fidencio Castanon MD Chest X-Ray 01/22/17 1550 Signed Impressions: Service Date/Time: Sunday, January 22, 2017 15:48 - CONCLUSION: No acute cardiopulmonary disease identified. Ildefonso Askew MD Neck CTA 01/22/17 0000 Signed Impressions: Service Date/Time: Sunday, January 22, 2017 17:13 - CONCLUSION: Normal examination. Girish Aj MD Head CTA 01/22/17 0000 Signed Impressions: Service Date/Time: Sunday, January 22, 2017 17:13 - CONCLUSION: Luminal irregularity with focal narrowing and possible small filling defect identified in an M2 branch of left middle cerebral artery. No evidence of filling defects in the internal carotid arteries or M1 branches Normal posterior circulation. Report called to the emergency department. Girish Aj MD Head CT 01/22/17 0000 Signed Impressions: Service Date/Time: Sunday, January 22, 2017 17:01 - CONCLUSION: Small hyperdense focus in the left basal ganglia representing either focal calcification or a very small hemorrhage. Otherwise normal appearing brain. Girish Aj MD Chest/Thorax CTA 01/22/17 0000 Signed Impressions: Service Date/Time: Sunday, January 22, 2017 17:18 - CONCLUSION: Normal examination. No evidence of pulmonary embolism or thoracic aortic dissection. Girish Aj MD Brain MRI 01/22/17 0000 Signed Impressions: Service Date/Time: Sunday, January 22, 2017 18:18 - CONCLUSION: No evidence of acute intracranial findings. No evidence of hemorrhage. Ildefonso Askew MD PE at Discharge obese, NAD anicteric, pupils equally reactive to light no facial asymmetry good gag no nuchal rigidity lungs clear regular rhythm abdomen- globularly soft, nontender extremities no edema grossly no sensory deficits motor 5/5 , gait steady absent Babinski Pt update on day of discharge awkae and lert, speech clear gait steady no weakness counselled extensively on weight, diet and glucose monitoring states has appt with PCP on Tuesday no smoking, no cannabinoids Hospital Course 41 years old male Atypical Chest Pain: - acute onset of chest pain w/ radiation to back, negative for dissection CTA Chest normal,CXR w/ no acute abnormalities EKG w/ no acute ischemia. troponins , EKG negative. myocardial perfusion study-not diagnostic. Echo EF- 55-60& on ASA, VICKY,BB DC today- medical management TIA- CVA: acute episode of facial droop and right-sided weakness - Resolved. No slurred speech. MRI brain negative neuro deficits resolved ASA, statins Dr. Lindsey ff- OP ff up Hypertension VICKY- Lisinopril- up to 10 mg daily. Add HCTZ 25 mg daily. continue BB E coli UTI ciprofloxacin 500 mg po bid- compete course monitor for vaginitis- per patient gets candidiasis vaginisis on antibotics- no discharge DM:, uncontrolled. A1C 11.4. diabetes teaching/nutrtion consult in the past on [place]- was "taken off" will benefit from metformin- will start eventually- start Metformin 500 mg po bid increase 7030 bid dose reinforced diabetes teaching- scripts for glucometer and strips given Obesity - counselled on weight reduction and diet and exercise Tobacco Abuse: states history of HAD- no wheezes. On Albuterol MDIs qid Pt counselled. Ativan prn. No NicoDerm to avoid vasoconstriction. Cannabinoids use- counselled DC home today CM for assistance - FF up with PCP- [facility]- Dr. Iva Cassidy Pt Condition on Discharge: Stable Discharge Disposition: Discharge Home Discharge Time: <= 30 minutes Discharge Instructions DIET: Follow Instructions for: Heart Healthy Diet, Diabetic Diet Speech Therapy-Diet Recommends: Regular Activities you can perform: Weight Bearing as Ceci Activities to Avoid: Strenuous Activity Follow up Referrals: PCP Follow-up - 01/28/17 with Manuela LYONS New Medications: Blood Glucose Monitoring W/Device (Blood Glucose Monitoring W/Device) 1 Kit Kit 1 KIT .ROUTE DIRECTED for Blood Sugar Management, #1 KIT 0 Refills Blood Glucose Test Strips (Blood Glucose Test Strips) Strips Strip 1 EA .ROUTE DIRECTED for Blood Sugar Management, #1 BOX 0 Refills Fluconazole (Diflucan) 150 Mg Tab 150 MG PO ONCE for Infection, #1 TAB [address] (Aspirin EC) 325 Mg Tabdr 325 MG PO DAILY for TIA for 28 Days, TAB 1 Refill Ciprofloxacin (Cipro) 500 Mg Tab 500 MG PO Q12HR for UTI for 4 Days, TAB Hydrochlorothiazide (Hydrochlorothiazide) 25 Mg Tab 25 MG PO DAILY for HTN for 30 Days, TAB Insulin Human Isophane-Regular 70-30 Inj (Novolin 70-30 Inj) 1,000 Unit/10 Ml Vial 12 UNITS SQ BID@08,17 for DM for 30 Days, INJECTION Lisinopril (Lisinopril) 5 Mg Tab 10 MG PO DAILY for HTN for 30 Days, TAB Metformin (Glucophage) 500 Mg Tab 500 MG PO BIDPC for DM for 30 Days, TAB Pravastatin (Pravachol) 40 Mg Tab 40 MG PO HS for HLP for 30 Days, TAB Serafin Sharp MD Jan 26, 2017 11:30
[2017-01-26] MEDS: ENOXAPARIN SODIUM 30 MG/0.3 ML SYRINGE SQ SCH (15:00)
== END 2017-01-26 16:19 | disposition home or self-care (01) | DRG 69 ==
LOC: NEPE 15:44 → NEDH 19:17 → HCIS 22:57
PROVIDERS: ADMIT Internal Medicine; ATTEND Internal Medicine
DX: G45.9 Transient cerebral ischemic attack, unspecified (principal); E11.65 Type 2 diabetes mellitus with hyperglycemia; Z68.41 Body mass index [BMI] 40.0-44.9, adult; I10 Essential (primary) hypertension; R07.89 Other chest pain; F12.90 Cannabis use, unspecified, uncomplicated; N39.0 Urinary tract infection, site not specified; J45.909 Unspecified asthma, uncomplicated; E66.9 Obesity, unspecified; Z72.0 Tobacco use; B96.20 Unspecified Escherichia coli [E. coli] as the cause of diseases classified elsewhere; Z91.14 Patient's other noncompliance with medication regimen
CPT/HCPCS: 70450; 70496; 70498; 70553; 71010; 71275; 76937; 78452; 80048; 80053; 80061; 80307; 81001; 82043; 82435; 82550; 82565; 82947; 82948; 83036; 83690; 83735; 84132; 84295; 84484; 84520; 85025; 85384; 85610; 85730; 86850; 86900; 86901; 87077; 87086; 87186; 93005; 93017; 93306; 96374; 96375; A9502; A9579; J0171; J0461; J1650; J1815; J2270; J2405; J2785; J7030; J7040; Q9967

== ENCOUNTER 2017-04-23 03:08 | Emergency (ER) | payer MEDICAID, OTHER ==
[~2017-04-23] VITALS: Ht 160 cm; Wt 118.0 kg
[~2017-04-23 03:08] MED LIST: ASPI325T33 PO; BLOOD GLUCOSE M1 KIT; BLOOD GLUCOSE T1 TES; CIPR-9 PO; DIFL150T PO; HYDR25TA5 PO; LISI-519 PO; METF500 PO; NOVO7030P2 SQ; PRAV40TA PO
[2017-04-23 03:09] VITALS: BP 142/85; PULSE 99; RESP 16; TEMP 98.8; O2SAT 97
[2017-04-23] MEDS ORDERED: ACETAMINOPHEN/HYDROcodone 325 MG/5 MG TAB PO ONE (03:30)
--- NOTE | 2017-04-23 03:32 | PD ---
HPI Chief Complaint: Fall Time Seen by Provider: 03:17 Travel History International Travel<30 days: No Contact w/Intl Traveler<30days: No Traveled to known affect area: No History of Present Illness HPI 42 year-old woman presents emergency department complaining of back pain and head pain after slip and fall. She was getting out of the shower when she slipped and fell backwards landed on her back and hit her head. She believes she lost consciousness for a few seconds. Complains of severe headache and had pain now as well as tenderness in the back of her scalp and mid thoracic back pain. No lightheadedness or dizziness. No other associated complaints. No other recent illness or injury. History Past Medical History Narrative Medical Diabetes Hypertension Hyperlipidemia Asthma LMP: 04/14/17 Social History Alcohol Use: No Tobacco Use: Yes (3 CIG/DAY) Allergies-Medications (Allergen,Severity, Reaction): Coded Allergies: No Known Allergies (Unverified Adverse Reaction, Unknown, 04/23/17) Reported Meds & Prescriptions Reported Meds & Active Scripts Active Aspirin EC (Aspirin) 325 Mg Tabdr 325 Mg PO DAILY 28 Days Pravachol (Pravastatin) 40 Mg Tab 40 Mg PO HS 30 Days Glucophage (Metformin HCl) 500 Mg Tab 500 Mg PO BIDPC 30 Days Novolin 70-30 Inj (Insulin Human Isoph/Insulin Regular) 1,000 Unit/10 Ml Vial 12 Units SQ BID@,17 30 Days Hydrochlorothiazide 25 Mg Tab 25 Mg PO DAILY 30 Days Blood Glucose Test Strips Strips Strip 1 Ea .ROUTE DIRECTED Blood Glucose Monitoring W/Device (Device) 1 Kit Kit 1 Kit .ROUTE DIRECTED Reported Proair Hfa 8.5 GM Inh (Albuterol Sulfate) 90 Mcg/Act Aer 2 Puff INH Q4-6H PRN 108 mcg/actuation Lisinopril 20 Mg Tab 20 Mg PO DAILY Review of Systems Except as stated in HPI: all other systems reviewed are Neg Physical Exam Narrative GENERAL: Obese 42 year-old woman, no acute distress. SKIN: Focused skin assessment warm/dry. HEAD: Normocephalic. Posterior scalp tenderness in the occiput. EYES: Pupils equal and round. No scleral icterus. No injection or drainage. ENT: No nasal bleeding or discharge. Mucous membranes pink and moist. NECK: No midline tenderness. No step-offs or deformities. Full range of motion. CARDIOVASCULAR: Regular rate and rhythm. No murmur appreciated. RESPIRATORY: No accessory muscle use. Clear to auscultation. Breath sounds equal bilaterally. GASTROINTESTINAL: Abdomen soft, non-tender, nondistended. Hepatic and splenic margins not palpable. MUSCULOSKELETAL: No obvious deformities. Mid thoracic spinal tenderness, little bit more on the left paraspinous muscles and in the midline. NEUROLOGICAL: Awake and alert. No obvious cranial nerve deficits. Motor grossly within normal limits. Normal speech. PSYCHIATRIC: Appropriate mood and affect; insight and judgment normal. Data Data Last Documented VS Vital Signs Date Time Temp Pulse Resp B/P (MAP) Pulse Ox O2 Delivery O2 Flow Rate FiO2 04/23/17 03:09 98.8 99 16 142/85 (104) 97 Room Air Orders Orders Ct Brain W/O Iv Contrast(Rout) (04/23/17 ) Spine, Thoracic-Ap/Lat/Sw(3vw) (04/23/17 ) Acetamin-Hydrocod 325-5 Mg (Arena 5-325 (04/23/17 03:30) MDM Medical Decision Making Medical Screen Exam Complete: Yes Emergency Medical Condition: Yes Interpretation(s) Head CT: No evidence of acute intracranial pathology. No masses are identified. Thoracic spine x-ray: There is no evidence of acute fracture. Differential Diagnosis Closed head injury, contusion, ICH, back injury, other Narrative Course Medical decision making INITIAL: 42 year-old woman with slip and fall, severe head pain with LOC. We' ll check head CT expect it'll be negative. Also back pain. Likely contusion. We'll check x-rays again likely negative. Diagnosis Primary Impression: Closed head injury Additional Impression: Back contusion Additional Instructions: Take Aleve as needed for back pain or headache. Follow-up with your primary doctor in 7 days if not completely well. Return to the emergency department for any new or worsening symptoms. Med/Other Pt SpecificInfo: Prescription(s) given Disposition: 01 DISCHARGE HOME Condition: Stable [place] Saenz MD Apr 23, 2017 03:31
[2017-04-23] MEDS ORDERED: LISI-515 PO (03:46)
[2017-04-23] MEDS ORDERED: ALBUAER3 INH (03:46)
--- NOTE | 2017-04-23 04:06 | RADRPT ---
EXAM DATE/TIME: 04/23/2017 03:19 [facility] COMPARISON: CT BRAIN W/O CONTRAST, January 22, 2017, 17:01. INDICATIONS : Trauma; fall. RADIATION DOSE: 56.35 CTDIvol (mGy) MEDICAL HISTORY : Cerebrovascular disease. Asthma SURGICAL HISTORY : None. ENCOUNTER: Initial ACUITY: 1 day PAIN SCALE: 7/10 LOCATION: cranial TECHNIQUE: Multiple contiguous axial images were obtained of the head. Using automated exposure control and adj ustment of the mA and/or kV according to patient size, radiation dose was kept as low as reasonably a chievable to obtain optimal diagnostic quality images. DICOM format image data is available electro nically for review and comparison. FINDINGS: CEREBRUM: The ventricles are normal for age. No evidence of midline shift, mass lesion, hemorrhage or acute in farction. No extra-axial fluid collections are seen. POSTERIOR FOSSA: The cerebellum and brainstem are intact. The 4th ventricle is midline. The cerebellopontine angle i s unremarkable. EXTRACRANIAL: The visualized portion of the orbits is intact. SKULL: The calvaria is intact. No evidence of skull fracture. CONCLUSION: 1. No evidence of acute intracranial pathology. No masses are identified. Abdiel Martinez MD on April 23, 2017 at 4:04 Board Certified Radiologist. This report was verified electronically.
--- NOTE | 2017-04-23 04:07 | RADRPT ---
EXAM DATE/TIME: 04/23/2017 03:34 [facility] COMPARISON: No previous studies available for comparison. INDICATIONS : Upper back pain post fall tonight MEDICAL HISTORY : None. SURGICAL HISTORY : None. ENCOUNTER: Initial ACUITY: 1 day PAIN SCORE: 7/10 LOCATION: Bilateral Thoracic FINDINGS: There is normal alignment of the thoracic vertebral bodies. Vertebral body height is maintained. No evidence of fracture or subluxation. Pedicles are intact at all levels. The paravertebral reflecti ons are not thickened. CONCLUSION: 1. There is no evidence of acute fracture. Abdiel Martinez MD on April 23, 2017 at 4:04 Board Certified Radiologist. This report was verified electronically.
== END 2017-04-23 04:26 | disposition home or self-care (01) ==
LOC: NEPC 03:08
DX: S09.90XA Unspecified injury of head, initial encounter (principal); S20.229A Contusion of unspecified back wall of thorax, initial encounter; W18.2XXA Fall in (into) shower or empty bathtub, initial encounter; Y93.E1 Activity, personal bathing and showering; E11.9 Type 2 diabetes mellitus without complications; I10 Essential (primary) hypertension; E78.5 Hyperlipidemia, unspecified; J45.909 Unspecified asthma, uncomplicated; F17.210 Nicotine dependence, cigarettes, uncomplicated
CPT/HCPCS: 70450; 72072; 99284

== ENCOUNTER 2017-07-13 09:58 | Emergency (ER) | payer MEDICAID ==
[~2017-07-13] VITALS: Ht 165.1 cm; Wt 140.0 kg
[~2017-07-13 09:58] MED LIST changes: +ALBUAER3 INH; -CIPR-9 PO; -DIFL150T PO; +LISI-515 PO; -LISI-519 PO
[2017-07-13 09:59] VITALS: BP 164/90; PULSE 94; RESP 18; TEMP 98.5; O2SAT 96
[2017-07-13 10:43] VITALS: BP 180/86; PULSE 92; RESP 19; O2SAT 97
--- NOTE | 2017-07-13 11:22 | PD ---
HPI Chief Complaint: GI Complaint Time Seen by Provider: 10:42 Travel History International Travel<30 days: No Contact w/Intl Traveler<30days: No Traveled to known affect area: No History of Present Illness HPI Patient is a 42 yo female presenting with abdominal pain, dizziness, nausea and vomiting. 2 days ago she felt like she had a stomach virus because she started vomiting and had diarrhea. This morning when she woke up she felt like she was having heart burn and was more nauseous. When she got to work she felt extremely dizzy, like her head was spinning and her boss told her to go to the ER. She has vomited 3 times today. She has not been able to eat or drink for the last 2 days. She denies any fevers or any other cold like symptoms. No recent travel. No change in diet. She has a medical history of diabetes, HTN, hyperlipidemia and a ministroke which she was hospitalized for in January. She is not currently taking her medications because she can't afford them right now. Recently she had a bad dental infection which resulted in several extractions. She was prescribed heavy antibiotics for 10 days which she finished 3 days ago. She said the antibiotics also upset her stomach but her symptoms now are much worse. She smokes 5 cigarettes per day and denies alcohol or drug use. Previous surgeries include cholecystectomy. PFSH Past Medical History Asthma: Yes Cancer: No Cardiovascular Problems: No Cerebrovascular Accident: Yes Diabetes: Yes Patient Takes Glucophage: Yes Diminished Hearing: Yes Endocrine: Yes Genitourinary: No Immune Disorder: No Musculoskeletal: Yes Neurologic: Yes Psychiatric: No Reproductive: No Respiratory: Yes (ASTHMA) Migraines: Yes (since car ac, october 2016) Tetanus Vaccination: Unknown Influenza Vaccination: No ?: Not Tubal Ligation: Yes Past Surgical History Abdominal Surgery: Yes (Gall stones removed) Other Surgery: Yes Social History Alcohol Use: No Tobacco Use: Yes (3 CIG/DAY) Substance Use: No Allergies-Medications (Allergen,Severity, Reaction): Coded Allergies: No Known Allergies (Unverified Adverse Reaction, Unknown, 07/13/17) Reported Meds & Prescriptions Reported Meds & Active Scripts Active Zofran (Ondansetron HCl) 4 Mg Tab 4 Mg PO Q6HR PRN Protonix (Pantoprazole Sodium) 40 Mg Tab 40 Mg PO DAILY Novolin 70-30 Inj (Insulin Human Isoph/Insulin Regular) 1,000 Unit/10 Ml Vial 12 Units SQ BID@08,17 30 Days Aspirin EC (Aspirin) 325 Mg Tabdr 325 Mg PO DAILY 28 Days Pravachol (Pravastatin) 40 Mg Tab 40 Mg PO HS 30 Days Glucophage (Metformin HCl) 500 Mg Tab 500 Mg PO BIDPC 30 Days Hydrochlorothiazide 25 Mg Tab 25 Mg PO DAILY 30 Days Reported Proair Hfa 8.5 GM Inh (Albuterol Sulfate) 90 Mcg/Act Aer 2 Puff INH Q4-6H PRN 108 mcg/actuation Lisinopril 20 Mg Tab 20 Mg PO DAILY Review of Systems Except as stated in HPI: all other systems reviewed are Neg Physical Exam Narrative GENERAL: well appearing female in no acute distress SKIN: Warm and dry. HEAD: Atraumatic. Normocephalic. EYES: Pupils equal and round. No scleral icterus. No injection or drainage. ENT: No nasal bleeding or discharge. Mucous membranes pink and moist. NECK: Trachea midline. No JVD. CARDIOVASCULAR: Regular rate and rhythm. RESPIRATORY: No accessory muscle use. Clear to auscultation. Breath sounds equal bilaterally. GASTROINTESTINAL: Abdomen soft, non-tender, nondistended. Hepatic and splenic margins not palpable. MUSCULOSKELETAL: Extremities without clubbing, cyanosis, or edema. No obvious deformities. NEUROLOGICAL: Awake and alert. No obvious cranial nerve deficits. Motor grossly within normal limits. Five out of 5 muscle strength in the arms and legs. Normal speech. PSYCHIATRIC: Appropriate mood and affect; insight and judgment normal. Data Data Last Documented VS Vital Signs Date Time Temp Pulse Resp B/P (MAP) Pulse Ox O2 Delivery O2 Flow Rate FiO2 07/13/17 13:33 07/13/17 11:28 97 Room Air 07/13/17 10:43 92 19 07/13/17 09:59 98.5 Orders Orders Complete Blood Count With Diff (07/13/17 11:22) Comprehensive Metabolic Panel (07/13/17 11:22) Magnesium (Mg) (07/13/17 11:22) Prothrombin Time / Inr (Pt) (07/13/17 11:22) Act Partial Throm Time (Ptt) (07/13/17 11:22) Troponin I (07/13/17 11:22) Lipase (07/13/17 11:22) Ecg Monitoring (07/13/17 11:22) Iv Access Insert/Monitor (07/13/17 11:22) Oximetry (07/13/17 11:22) Oxygen Administration (07/13/17 11:22) Sodium Chloride 0.9% Flush (Ns Flush) (07/13/17 11:30) Ketorolac Inj (Toradol Inj) (07/13/17 11:30) Ondansetron Inj (Zofran Inj) (07/13/17 11:30) Sodium Chlor 0.9% 1000 Ml Inj (Ns 1000 M (07/13/17 11:26) Al-Mag Hy-Si 40-40-4 Mg/Ml Liq (Mag-Al P (07/13/17 11:30) Lidocaine 2% Viscous (Xylocaine 2% Visco (07/13/17 11:30) Ed Discharge Order (07/13/17 13:15) Labs Laboratory Tests Test 07/13/17 11:35 White Blood Count 10.8 TH/MM3 Red Blood Count 4.77 MIL/MM3 Hemoglobin 12.5 GM/DL Hematocrit 37.8 % Mean Corpuscular Volume 79.3 FL Mean Corpuscular Hemoglobin 26.1 PG Mean Corpuscular Hemoglobin Concent 33.0 % Red Cell Distribution Width 14.8 % Platelet Count 479 TH/MM3 Mean Platelet Volume 8.4 FL Neutrophils (%) (Auto) 59.8 % Lymphocytes (%) (Auto) 32.2 % Monocytes (%) (Auto) 7.2 % Eosinophils (%) (Auto) 0.0 % Basophils (%) (Auto) 0.8 % Neutrophils # (Auto) 6.5 TH/MM3 Lymphocytes # (Auto) 3.5 TH/MM3 Monocytes # (Auto) 0.8 TH/MM3 Eosinophils # (Auto) 0.0 TH/MM3 Basophils # (Auto) 0.1 TH/MM3 CBC Comment AUTO DIFF Differential Comment AUTO DIFF CONFIRMED Prothrombin Time 9.7 SEC Prothromb Time International Ratio 1.0 RATIO Activated Partial Thromboplast Time 27.0 SEC Blood Urea Nitrogen 7 MG/DL Creatinine 0.49 MG/DL Random Glucose 304 MG/DL Total Protein 7.8 GM/DL Albumin 3.3 GM/DL Calcium Level 8.8 MG/DL Magnesium Level 1.8 MG/DL Alkaline Phosphatase 96 U/L Aspartate Amino Transf (AST/SGOT) 13 U/L Alanine Aminotransferase (ALT/SGPT) 16 U/L Total Bilirubin 0.1 MG/DL Sodium Level 134 MEQ/L Potassium Level 3.9 MEQ/L Chloride Level 101 MEQ/L Carbon Dioxide Level 26.2 MEQ/L Anion Gap 7 MEQ/L Estimat Glomerular Filtration Rate 168 ML/MIN Troponin I LESS THAN 0.02 NG/ML Lipase 73 U/L MDM Medical Decision Making Medical Screen Exam Complete: Yes Emergency Medical Condition: Yes Differential Diagnosis Gastritis, gastroenteritis, infectious diarrhea, C. difficile colitis considered but seems unlikely, acute abdomen highly unlikely. Narrative Course Patient roomed in emergency department, appears quite well and in no obvious distress, Toradol given, antiemetics by IV, GI cocktail given as well, patient had near complete resolution of her symptoms. EKG negative, troponin negative, lecture lites within normal limits. Abdomen is benign and I do not think her symptoms are super diaphragmatic, there is no indication for CAT scan imaging at this time as the pretest probability is low or acute abdomen. Discussed symptomatic management returned ED criteria. She stable for discharge. Diagnosis Primary Impression: Epigastric abdominal pain Med/Other Pt SpecificInfo: Prescription(s) given Scripts Ondansetron (Zofran) 4 Mg Tab 4 MG PO Q6HR Y for NAUSEA OR VOMITING, #20 TAB 0 Refills Prov: Ellis Hughes MD 07/13/17 Pantoprazole (Protonix) 40 Mg Tab 40 MG PO DAILY for Reflux, #30 TAB 0 Refills Prov: Ellis Hughes MD 07/13/17 Insulin Human Isophane-Regular 70-30 Inj (Novolin 70-30 Inj) 1,000 Unit/10 Ml Vial 12 UNITS SQ BID@08,17 for DM for 30 Days, INJECTION Prov: Ellis Hughes MD 07/13/17 Disposition: 01 DISCHARGE HOME Condition: Stable Ellis Hughes MD Jul 13, 2017 11:22
[2017-07-13] MEDS ORDERED: SODIUM CHLOR 0.9% 1000 ML INJ 1,000 ML IV SCH (11:26)
[2017-07-13 11:28] VITALS: O2SAT 97
[2017-07-13] MEDS ORDERED: SODIUM CHLORIDE 0.9% FLUSH 10 ML FLUSH IVF PRN (11:30)
[2017-07-13] MEDS ORDERED: KETOROLAC TROMETHAMINE 30 MG/ML (IVP) VIAL IV PUSH ONE (11:30)
[2017-07-13] MEDS ORDERED: ONDANSETRON HCL 4 MG/2 ML VIAL IVP ONE (11:30)
[2017-07-13] MEDS ORDERED: LIDOCAINE VISCOUS 2% SOLN 15 ML UDC PO ONE (11:30)
[2017-07-13] MEDS ORDERED: ALUMINUM/MAGNESIUM/SIMETH 30 ML CUP PO ONE (11:30)
[2017-07-13 12:13] LABS: AUTOMATED NEUTROPHIL # 6.5 TH/MM3 (1.8-7.7); BASOPHIL # 0.1 TH/MM3 (0-0.2); BASOPHIL % 0.8 % (0.0-2.0); HEMATOCRIT 37.8 % (35.0-46.0); HEMOGLOBIN 12.5 GM/DL (11.6-15.3); LYMPH % 32.2 % (9.0-44.0); LYMPHOCYTE # 3.5 TH/MM3 (1.0-4.8); MEAN CELL VOLUME 79.3 FL (80.0-100.0); MEAN CORPUSCULAR HEMOGLOBIN 26.1 PG (27.0-34.0); MEAN PLATELET VOLUME 8.4 FL (7.0-11.0); MONO % 7.2 % (0.0-8.0); MONOCYTE # 0.8 TH/MM3 (0-0.9); NEUT % 59.8 % (16.0-70.0); PLATELET COUNT 479 TH/MM3 (150-450); RED BLOOD COUNT 4.77 MIL/MM3 (4.00-5.30); RED CELL DISTRIBUTION WIDTH 14.8 % (11.6-17.2); WHITE BLOOD COUNT 10.8 TH/MM3 (4.0-11.0)
[2017-07-13 12:26] LABS: PROTHROMBIN TIME - PATIENT 9.7 SEC (9.8-11.6)
[2017-07-13 12:29] LABS: ALBUMIN 3.3 GM/DL (3.4-5.0); AST (GOT) 13 U/L (15-37); BICARBONATE 26.2 MEQ/L (21.0-32.0); BLOOD UREA NITROGEN 7 MG/DL (7-18); CALCIUM 8.8 MG/DL (8.5-10.1); CHLORIDE 101 MEQ/L (98-107); CREATININE 0.49 MG/DL (0.50-1.00); GLOMERULAR FILTRATION RATE 168 ML/MIN (>89); GLUCOSE,RANDOM 304 MG/DL (74-106); MAGNESIUM 1.8 MG/DL (1.5-2.5); SODIUM (NA) 134 MEQ/L (136-145)
[2017-07-13 12:30] LABS: ALT (GPT) 16 U/L (10-53)
[2017-07-13 12:34] LABS: ALKALINE PHOSPHATASE 96 U/L (45-117); TOTAL BILIRUBIN ADULT 0.1 MG/DL (0.2-1.0); TOTAL PROTEIN 7.8 GM/DL (6.4-8.2); TROPONIN I LESS THAN 0.02 NG/ML (0.02-0.05)
[2017-07-13] MEDS ORDERED: NOVO7030P2 SQ (13:15)
[2017-07-13] MEDS ORDERED: PROT40TA PO (13:15)
[2017-07-13] MEDS ORDERED: ZOFR4TAB PO (13:26)
== END 2017-07-13 13:34 | disposition home or self-care (01) ==
LOC: NEPD 09:58
DX: R10.13 Epigastric pain (principal); R42 Dizziness and giddiness; R11.2 Nausea with vomiting, unspecified; R19.7 Diarrhea, unspecified; E11.9 Type 2 diabetes mellitus without complications; E78.5 Hyperlipidemia, unspecified; I10 Essential (primary) hypertension; F17.210 Nicotine dependence, cigarettes, uncomplicated; J45.909 Unspecified asthma, uncomplicated; Z79.4 Long term (current) use of insulin
CPT/HCPCS: 80053; 83690; 83735; 84484; 85025; 85610; 85730; 96374; 96375; 99284; J1885; J2405; J7030

== ENCOUNTER 2017-08-02 13:47 | Observation (INO) | payer MEDICAID ==
[~2017-08-02] VITALS: Ht 166.4 cm; Wt 107.0 kg
[~2017-08-02 13:47] MED LIST changes: -BLOOD GLUCOSE M1 KIT; -BLOOD GLUCOSE T1 TES; +PROT40TA PO; +ZOFR4TAB PO
[2017-08-02 13:49] VITALS: BP 164/72; PULSE 110; RESP 22; TEMP 98.7; O2SAT 99
--- NOTE | 2017-08-02 14:53 | RADRPT ---
EXAM DATE/TIME: 08/02/2017 14:07 [facility] COMPARISON: No previous studies available for comparison. INDICATIONS : Chest pain since this morning, feels like something heavy is on her chest, coughing MEDICAL HISTORY : asthma SURGICAL HISTORY : None. ENCOUNTER: Initial ACUITY: 1 day PAIN SCORE: 6/10 LOCATION: Bilateral chest FINDINGS: PA and lateral views of the chest demonstrate the lungs to be symmetrically aerated without evidence of mass, infiltrate or effusion. The cardiomediastinal contours are unremarkable. Osseous structure s are intact. CONCLUSION: 1. No acute cardiopulmonary disease. Abdiel Martinez MD on August 02, 2017 at 14:51 Board Certified Radiologist. This report was verified electronically.
[2017-08-02 15:37] LABS: AUTOMATED NEUTROPHIL # 4.2 TH/MM3 (1.8-7.7); BASOPHIL # 0.1 TH/MM3 (0-0.2); BASOPHIL % 1.1 % (0.0-2.0); HEMATOCRIT 37.3 % (35.0-46.0); HEMOGLOBIN 12.2 GM/DL (11.6-15.3); MEAN CORPUSCULAR HEMOGLOBIN 25.7 PG (27.0-34.0); MEAN CORPUSCULAR HGB CONC 32.6 % (32.0-36.0); MEAN PLATELET VOLUME 8.2 FL (7.0-11.0); MONO % 12.9 % (0.0-8.0); MONOCYTE # 0.9 TH/MM3 (0-0.9); PLATELET COUNT 365 TH/MM3 (150-450); RED BLOOD COUNT 4.72 MIL/MM3 (4.00-5.30); RED CELL DISTRIBUTION WIDTH 14.6 % (11.6-17.2); WHITE BLOOD COUNT 7.2 TH/MM3 (4.0-11.0)
[2017-08-02 15:52] LABS: BICARBONATE 23.9 MEQ/L (21.0-32.0); BLOOD UREA NITROGEN 5 MG/DL (7-18); CALCIUM 8.6 MG/DL (8.5-10.1); CHLORIDE 98 MEQ/L (98-107); CREATININE 0.57 MG/DL (0.50-1.00); GLOMERULAR FILTRATION RATE 141 ML/MIN (>89); GLUCOSE,RANDOM 358 MG/DL (74-106); SODIUM (NA) 132 MEQ/L (136-145)
[2017-08-02 15:57] LABS: TROPONIN I LESS THAN 0.02 NG/ML (0.02-0.05)
[2017-08-02 16:00] LABS: PROTHROMBIN TIME - PATIENT 9.7 SEC (9.8-11.6)
--- NOTE | 2017-08-02 17:44 | PD ---
HPI Chief Complaint: Chest Pain Time Seen by Provider: 17:29 Travel History International Travel<30 days: No Contact w/Intl Traveler<30days: No Traveled to known affect area: No History of Present Illness HPI 42-year-old female with PMH of asthma, DM presents to the ED for evaluation of nonproductive cough, chest tightness, wheezing, palpitations, posttussive emesis. Onset this morning after waking up. The patient denies fever, chills, abdominal pain, diaphoresis. She did not receive this years flu vaccine. She cannot identify any sick contacts. She treated at home with rescue inhalers with no improvement of symptoms. States this pain is different from her asthma attacks in the past. Patient is a current smoker. She is unsure of any familial history of MS. 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 She does not take blood thinners. PFSH Past Medical History Asthma: Yes Cancer: No Cardiovascular Problems: No Cerebrovascular Accident: Yes Diabetes: Yes Diminished Hearing: Yes Endocrine: Yes Genitourinary: No Immune Disorder: No Musculoskeletal: Yes Neurologic: Yes Psychiatric: No Reproductive: No Respiratory: Yes (asthma) Migraines: Yes (since car ac, october 2016) ?: Not LMP: 07/14/2017 Tubal Ligation: Yes Past Surgical History Abdominal Surgery: Yes (Gall stones removed) Other Surgery: Yes Social History Alcohol Use: No Tobacco Use: Yes (3 CIG/DAY) Substance Use: No Allergies-Medications (Allergen,Severity, Reaction): Coded Allergies: No Known Allergies (Unverified Adverse Reaction, Unknown, 08/02/17) Reported Meds & Prescriptions Reported Meds & Active Scripts Active Novolin 70-30 Inj (Insulin Human Isoph/Insulin Regular) 1,000 Unit/10 Ml Vial 12 Units SQ BID@08,17 30 Days Aspirin EC (Aspirin) 325 Mg Tabdr 325 Mg PO DAILY 28 Days Pravachol (Pravastatin) 40 Mg Tab 40 Mg PO HS 30 Days Glucophage (Metformin HCl) 500 Mg Tab 500 Mg PO BIDPC 30 Days Reported Glyburide 5 Mg Tab 10 Mg PO DAILY Take with meals at the same time each day Proair Hfa 8.5 GM Inh (Albuterol Sulfate) 90 Mcg/Act Aer 2 Puff INH Q4-6H PRN 108 mcg/actuation Lisinopril 20 Mg Tab 20 Mg PO DAILY Review of Systems Except as stated in HPI: all other systems reviewed are Neg Physical Exam Narrative GENERAL: Well-nourished, well-developed obese female in no acute distress. SKIN: Focused skin assessment warm/dry. HEAD: Normocephalic. EYES: No scleral icterus. No injection or drainage. NECK: Supple, trachea midline. No JVD or lymphadenopathy. CARDIOVASCULAR: Regular rate and rhythm without murmurs, gallops, or rubs. RESPIRATORY: Breath sounds tight with end expiratory wheezing bilaterally. No accessory muscle use. GASTROINTESTINAL: Abdomen soft, non-tender, nondistended. MUSCULOSKELETAL: No cyanosis, or edema. BACK: Nontender without obvious deformity. No CVA tenderness. Data Data Last Documented VS Vital Signs Date Time Temp Pulse Resp B/P (MAP) Pulse Ox O2 Delivery O2 Flow Rate FiO2 08/02/17 19:36 118 17 167/73 (104) 99 Room Air 08/02/17 13:49 98.7 Orders Orders Electrocardiogram (08/02/17 13:57) Basic Metabolic Panel (Bmp) (08/02/17 13:57) Ckmb (Isoenzyme) Profile (08/02/17 13:57) Complete Blood Count With Diff (08/02/17 13:57) Magnesium (Mg) (08/02/17 13:57) Prothrombin Time / Inr (Pt) (08/02/17 13:57) Act Partial Throm Time (Ptt) (08/02/17 13:57) Troponin I (08/02/17 13:57) Chest, Pa & Lat (08/02/17 13:57) Ed Urine Pregnancytest Poc (08/02/17 13:57) Influenzae A/B Antigen (08/02/17 17:41) Iv Access Insert/Monitor (08/02/17 17:41) Ecg Monitoring (08/02/17 17:41) Oximetry (08/02/17 17:41) Sodium Chloride 0.9% Flush (Ns Flush) (08/02/17 17:45) Methylprednisolone So Succ Inj (Solumedr (08/02/17 17:45) Albuterol-Ipratropium Neb (Duoneb Neb) (08/02/17 17:45) Sodium Chlorid 0.9% 500 Ml Inj (Ns 500 M (08/02/17 17:45) Ct Pulmonary Angiogram (08/02/17 19:00) Ketorolac Inj (Toradol Inj) (08/02/17 19:45) Iohexol 350 Inj (Omnipaque 350 Inj) (08/02/17 21:27) Sodium Chlorid 0.9% 500 Ml Inj (Ns 500 M (08/02/17 23:00) Labs Laboratory Tests Test 08/02/17 15:00 White Blood Count 7.2 TH/MM3 Red Blood Count 4.72 MIL/MM3 Hemoglobin 12.2 GM/DL Hematocrit 37.3 % Mean Corpuscular Volume 79.0 FL Mean Corpuscular Hemoglobin 25.7 PG Mean Corpuscular Hemoglobin Concent 32.6 % Red Cell Distribution Width 14.6 % Platelet Count 365 TH/MM3 Mean Platelet Volume 8.2 FL Neutrophils (%) (Auto) 58.0 % Lymphocytes (%) (Auto) 28.0 % Monocytes (%) (Auto) 12.9 % Eosinophils (%) (Auto) 0.0 % Basophils (%) (Auto) 1.1 % Neutrophils # (Auto) 4.2 TH/MM3 Lymphocytes # (Auto) 2.0 TH/MM3 Monocytes # (Auto) 0.9 TH/MM3 Eosinophils # (Auto) 0.0 TH/MM3 Basophils # (Auto) 0.1 TH/MM3 CBC Comment DIFF FINAL Differential Comment Prothrombin Time 9.7 SEC Prothromb Time International Ratio 1.0 RATIO Activated Partial Thromboplast Time 27.0 SEC Blood Urea Nitrogen 5 MG/DL Creatinine 0.57 MG/DL Random Glucose 358 MG/DL Calcium Level 8.6 MG/DL Magnesium Level 2.0 MG/DL Sodium Level 132 MEQ/L Potassium Level 3.8 MEQ/L Chloride Level 98 MEQ/L Carbon Dioxide Level 23.9 MEQ/L Anion Gap 10 MEQ/L Estimat Glomerular Filtration Rate 141 ML/MIN Total Creatine Kinase 44 U/L Troponin I LESS THAN 0.02 NG/ML MDM Medical Decision Making Medical Screen Exam Complete: Yes Emergency Medical Condition: Yes Differential Diagnosis Asthma exacerbation versus influenza versus ACS versus PE versus other Narrative Course 42-year-old female with PMH of asthma, DM presents to the ED for evaluation of nonproductive cough, chest tightness, wheezing, palpitations, posttussive emesis since this morning. States this pain is different from her asthma attacks in the past. 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 She does not take blood thinners. Patient is tachycardic on presentation. Physical exam reveals an obese female in no acute distress. Breath sounds are tight with end expiratory wheezing bilaterally. Abdomen soft and nontender. No lower extremity edema. Patient was administered 60 mg IV Solu-Medrol, DuoNeb 1, Zofran 4mg. EKG rate 108, sinus tachycardia. MO interval 148, QRS 85, QTC 398. Normal axis. No acute ST changes. Reviewed by Dr. Russo. CXR: No acute cardio pulmonary disease. Troponin negative 1. CBC without concerning abnormalities. Coags: INR 1.0. CMP: No concerning abnormalities. Glucose 358. CTA chest: Per limited visualization of the pulmonary arteries to the very proximal segmental level only. No evidence for pulmonary artery embolism to this level. Minimal b bibasilar atelectasis. Nonspecific slightly prominent mediastinal and right hilar nodes. Likely reactive. Visualized portion of the upper abdomen demonstrate probable hepatomegaly. Flu swab: Negative On recheck patient remains tachycardic. She states that her chest pain is unchanged. She states her breathing for little easier. I discussed the case with Dr. Russo. He recommends checking a TSH on the patient. Given her risk factors will admit to the chest pain center. Patient is agreeable. Please see their notes for disposition. Oksana Mcneil Aug 02, 2017 17:44
[2017-08-02] MEDS ORDERED: methylPREDNISolone SOD SUCC 125 MG/2 ML VIAL IV PUSH ONE (17:45)
[2017-08-02] MEDS ORDERED: SODIUM CHLORID 0.9% 500 ML INJ 500 ML IV ONE ×2 (17:45→23:00)
[2017-08-02] MEDS ORDERED: SODIUM CHLORIDE 0.9% FLUSH 10 ML FLUSH IVF PRN (17:45)
[2017-08-02] MEDS: RESP: ALBUTEROL 2.5 MG/IPRATROPIUM 0.5 MG NEB (SCH) INH ×2 (17:46→17:47)
[2017-08-02] MEDS ORDERED: GLYB5TAB3 PO (17:59)
[2017-08-02 18:03] VITALS: BP 160/71; PULSE 106; RESP 16; O2SAT 100
[2017-08-02 19:36] VITALS: BP 167/73; PULSE 118; RESP 17; O2SAT 99
[2017-08-02] MEDS ORDERED: KETOROLAC TROMETHAMINE 30 MG/ML (IVP) VIAL IV PUSH ONE (19:45)
--- NOTE | 2017-08-02 21:04 | RADRPT ---
EXAM DATE/TIME: 08/02/2017 20:39 [facility] COMPARISON: No previous studies available for comparison. INDICATIONS : Chest pain. IV CONTRAST: 75 cc Omnipaque 350 (iohexol) IV RADIATION DOSE: 15.66 CTDIvol (mGy) MEDICAL HISTORY : Stroke. Hypertension. SURGICAL HISTORY : Tubal ligation. ENCOUNTER: Initial ACUITY: 1 day PAIN SCALE: 5/10 LOCATION: Bilateral chest TECHNIQUE: Volumetric scanning of the chest was performed using a pulmonary embolism protocol MIP images were re constructed. Using automated exposure control and adjustment of the mA and/or kV according to patien t size, radiation dose was kept as low as reasonably achievable to obtain optimal diagnostic quality images. DICOM format image data is available electronically for review and comparison. Follow-up recommendations for detected pulmonary nodules are based at a minimum on nodule size and pa tient risk factors according to Fleischner Society Guidelines. FINDINGS: PULMONARY ARTERIES: The pulmonary arteries are visualized to the very proximal segmental level only. No evidence for jodi nal filling defect to this level. More distal segmental and subsegmental branches are incompletely ev aluated. LUNGS: Very minimal linear parenchymal opacities at the lung bases likely reflecting atelectasis. PLEURAE: There is no pleural thickening or pleural effusion. MEDIASTINUM: Slightly prominent on 1 cm anterior right carinal node and 1 cm right hilar node. Heart is grossly un remarkable without pericardial effusion. Thoracic aorta is grossly normal in caliber without evidence for aneurysm. MUSCULOSKELETAL: Within normal limits for patient age. MISCELLANEOUS: The visualized upper abdominal organs demonstrate probable hepatomegaly. CONCLUSION: 1. Limited visualization of the pulmonary arteries, to the very proximal segmental level only. No molly dence for pulmonary artery embolism to this level. 2. Minimal bibasilar atelectasis. 3. Nonspecific slightly prominent mediastinal and right hilar nodes, likely reactive. 4. Visualized portions of the upper abdomen demonstrate probable hepatomegaly. Omari Wang MD on August 02, 2017 at 20:59 Board Certified Radiologist. This report was verified electronically.
[2017-08-02] MEDS ORDERED: IOHEXOL 350 MG/ML 10 ML VIAL (for RAD DIAG) IVCONTRAST ONE (21:27)
[2017-08-02 22:53] VITALS: BP 173/80; PULSE 108; RESP 15; O2SAT 97
[2017-08-02] MEDS ORDERED: SODIUM CHLORIDE 0.9% FLUSH 10 ML FLUSH IV FLUSH PRN (23:00)
[2017-08-02] MEDS: SODIUM CHLORIDE 0.9% FLUSH 10 ML FLUSH IV FLUSH SCH (23:06)
[2017-08-02 23:46] VITALS: BP 176/82; PULSE 107; RESP 16; TEMP 98.6; O2SAT 98
[2017-08-02 23:46] LABS: TROPONIN I LESS THAN 0.02 NG/ML (0.02-0.05)
[2017-08-03] VITALS (9 sets, daily range): BP systolic 145–199; BP diastolic 72–89; PULSE 96–112; RESP 14–20; TEMP 97.4–98.8; O2SAT 94–96
[2017-08-03 01:08] LABS: GLUCOSE,RANDOM 627 MG/DL (74-106)
[2017-08-03 02:30] LABS: GLUCOSE,RANDOM 652 MG/DL (74-106)
[2017-08-03 03:02] LABS: TROPONIN I LESS THAN 0.02 NG/ML (0.02-0.05)
[2017-08-03] MEDS ORDERED: INSULIN ASPART 1,000 UNITS/10 ML VIAL SQ ONE (03:15)
[2017-08-03] MEDS ORDERED: ACETAMINOPHEN 325 MG TAB PO ONE (03:15)
[2017-08-03] MEDS ORDERED: DEXTROSE 50% IN WATER 50 ML VIAL(D50) IV PUSH PRN (07:30)
[2017-08-03] MEDS ORDERED: GLUCAGON 1 MG/ML VIAL OTHER PRN (07:30)
[2017-08-03] MEDS: LISINOPRIL 20 MG TAB PO SCH ×2 (07:50→09:51)
[2017-08-03] MEDS: SODIUM CHLORIDE 0.9% FLUSH 10 ML FLUSH IV FLUSH SCH (07:50)
[2017-08-03] MEDS ORDERED: INSULIN ASPART SUPPLEMENTAL SCALE SQ SCH (08:00)
[2017-08-03] MEDS ORDERED: RESP: ALBUTEROL 2.5 MG/IPRATROPIUM 0.5 MG NEB (PRN) INH (08:15)
[2017-08-03] MEDS ORDERED: RESP: ALBUTEROL 2.5 MG/IPRATROPIUM 0.5 MG NEB (SCH) INH ONE (08:18)
[2017-08-03] MEDS ORDERED: INSULIN HUMAN NPH/R 70/30 1,000 UNITS/10 ML VIAL SQ SCH (09:00)
[2017-08-03] MEDS ORDERED: ASPIRIN EC 325 MG TABEC PO SCH (09:00)
[2017-08-03] MEDS ORDERED: methylPREDNISolone SOD SUCC 125 MG/2 ML VIAL IV PUSH ONE (09:00)
--- NOTE | 2017-08-03 11:22 | HHI.HP ---
HPI Primary Care Physician No Primary Care Physician Chief Complaint Chest pain History of Present Illness This is a 42-year-old female with history of poorly controlled diabetes, hypertension, hyperlipidemia, CVA in January 2017, and asthma with a complaint of "felt like I was having an asthma attack." But it felt a little different. There was a little more pressure than usual. Symptoms began about 3:00 Tuesday morning. Discomfort is still present but it got better after getting IV steroids and breathing treatments in the ED l yesterday. States she is feeling much better now. States she had more wheezing yesterday. [place] a little short of breath. No nausea or diaphoresis. She also had a nonproductive cough. Denies fevers or chills. Admits to not following a diabetic diet. Denies . Review of Systems General: Patient denies fevers, chills, and recent travel HEENT: Patient denies headache, sore throat, difficulty swallowing. Cardiovascular: Has the chest discomfort as mentioned above. Denies sensation of heart beating rapidly or irregularly. No syncope. Denies diaphoresis. Respiratory: A little short of breath. She has been wheezing. Nonproductive cough. Denies inspirational chest discomfort. Denies hemoptysis. GI: Patient denies nausea, vomiting, diarrhea, abdominal pain, bloody stools. Musculoskeletal: Patient denies joint pain or edema. Denies calf pain or edema. Neurovascular: Patient denies numbness, tingling, weakness in extremities. Denies headache. Endocrine: Denies polyuria and polydipsia. Hematologic: Denies easy bruising. Skin: Denies rash or itching. Past Family Social History Allergies: Coded Allergies: No Known Allergies (Unverified Adverse Reaction, Unknown, 08/02/17) Past Medical History Asthma, poorly controlled diabetes, hypertension, hyperlipidemia, and prior CVA. Past Surgical History Noncontributory. Reported Medications Reported Meds & Active Scripts Active Novolin 70-30 Inj (Insulin Human Isoph/Insulin Regular) 1,000 Unit/10 Ml Vial 12 Units SQ BID@,17 30 Days Aspirin EC (Aspirin) 325 Mg Tabdr 325 Mg PO DAILY 28 Days Pravachol (Pravastatin) 40 Mg Tab 40 Mg PO HS 30 Days Glucophage (Metformin HCl) 500 Mg Tab 500 Mg PO BIDPC 30 Days Reported Glyburide 5 Mg Tab 10 Mg PO DAILY Take with meals at the same time each day Proair Hfa 8.5 GM Inh (Albuterol Sulfate) 90 Mcg/Act Aer 2 Puff INH Q4-6H PRN 108 mcg/actuation Lisinopril 20 Mg Tab 20 Mg PO DAILY Active Ordered Medications Current Medications Medications (Trade) Dose Ordered Sig/Josep Route Start Time Stop Time Status Last Admin (NS Flush) 2 ml UNSCH PRN IV FLUSH 08/02/17 23:00 (NS Flush) 2 ml BID IV FLUSH 08/02/17 23:00 08/03/17 07:50 (Prinivil) 20 mg DAILY PO 08/03/17 07:30 08/03/17 09:51 (D50w (Vial) Inj) 50 ml UNSCH PRN IV PUSH 08/03/17 07:30 (Glucagon Inj) 1 mg UNSCH PRN OTHER 08/03/17 07:30 (NovoLOG SUPPLEMENTAL SCALE) 1 ACHS SLIDING SCALE SQ 08/03/17 08:00 (Duoneb Neb) 1 ampule Q4HR NEB PRN INH 08/03/17 08:15 (Ecotrin Ec) 325 mg DAILY PO 08/03/17 09:00 08/03/17 09:51 (NovoLIN 70/30 INJ) 16 units BID@08,17 SQ 08/03/17 09:00 08/03/17 09:51 (Pravachol) 40 mg HS PO 08/03/17 21:00 Family History Denies family history of CAD. Social History Quit smoking January 2017 after having a CVA. Prior to that she is smoking about one third pack cigarettes daily for about 15 years. Denies alcohol use. Denies illicit drug use. Physical Exam Vital Signs Vital Signs Date Time Temp Pulse Resp B/P (MAP) Pulse Ox O2 Delivery O2 Flow Rate FiO2 08/03/17 11:04 96 08/03/17 09:51 97.7 101 18 160/88 (112) 94 08/03/17 07:45 98.4 102 18 145/73 (97) 94 08/03/17 07:18 97 08/03/17 06:34 101 184/87 (119) 08/03/17 05:34 97.4 102 14 199/89 (125) 96 08/03/17 03:26 106 08/03/17 00:42 112 08/03/17 00:00 98.8 108 20 158/72 (100) 96 08/02/17 23:46 98.6 107 16 176/82 (113) 98 08/02/17 23:39 08/02/17 22:53 108 15 173/80 (111) 97 Room Air 08/02/17 19:36 118 17 167/73 (104) 99 Room Air 08/02/17 18:03 100 Aerosol Mask 08/02/17 18:03 106 16 160/71 (100) 100 Aerosol Mask 08/02/17 13:49 98.7 110 22 164/72 (102) 99 Room Air Physical Exam GENERAL: This is a well-nourished, well-developed patient, in no apparent distress. Patient speaks in clear complete sentences. Patient is pleasant. HEENT: Head is atraumatic and normocephalic. Neck is supple without lymphadenopathy and trachea is midline. No JVD or carotid bruits. CARDIOVASCULAR: Regular rate and rhythm without murmurs, gallops, or rubs. RESPIRATORY: Diffuse expiratory wheezing. Breath sounds equal bilaterally. No rales or rhonchi. Chest wall is nontender. No use of accessory muscles. GASTROINTESTINAL: Abdomen is nontender, nondistended. Abdomen soft. No obvious pulsatile mass or bruit. No CVA tenderness. Strong femoral pulses bilaterally. Normal bowel sounds in all quadrants. MUSCULOSKELETAL: Patient is moving upper and lower extremities freely. No calf tenderness or edema, no Homans sign. Strong pulses in upper and lower extremities. NEUROLOGICAL: Patient is alert and oriented. Cranial nerves 2-12 are grossly intact. No focal deficits and speech is clear. SKIN: No rash and turgor is normal. Laboratory Laboratory Tests Test 08/02/17 15:00 08/02/17 23:00 08/03/17 01:10 White Blood Count 7.2 Red Blood Count 4.72 Hemoglobin 12.2 Hematocrit 37.3 Mean Corpuscular Volume 79.0 Mean Corpuscular Hemoglobin 25.7 Mean Corpuscular Hemoglobin Concent 32.6 Red Cell Distribution Width 14.6 Platelet Count 365 Mean Platelet Volume 8.2 Neutrophils (%) (Auto) 58.0 Lymphocytes (%) (Auto) 28.0 Monocytes (%) (Auto) 12.9 Eosinophils (%) (Auto) 0.0 Basophils (%) (Auto) 1.1 Neutrophils # (Auto) 4.2 Lymphocytes # (Auto) 2.0 Monocytes # (Auto) 0.9 Eosinophils # (Auto) 0.0 Basophils # (Auto) 0.1 CBC Comment DIFF FINAL Differential Comment Prothrombin Time 9.7 Prothromb Time International Ratio 1.0 Activated Partial Thromboplast Time 27.0 Blood Urea Nitrogen 5 Creatinine 0.57 Random Glucose 358 627 652 Calcium Level 8.6 Magnesium Level 2.0 Sodium Level 132 Potassium Level 3.8 Chloride Level 98 Carbon Dioxide Level 23.9 Anion Gap 10 Estimat Glomerular Filtration Rate 141 Total Creatine Kinase 44 48 51 Troponin I LESS THAN 0.02 LESS THAN 0.02 LESS THAN 0.02 Date/Time Source Procedure Growth Status 08/02/17 18:14 Nasal Washing Influenza Types A,B Antigen (JAZMIN) - Final NEGATIVE FOR FLU A AND B ANTIGEN.... Complete Result Diagram: 08/02/17 1500 08/03/17 0110 Imaging Last [address] Angiography 08/02/17 1900 Signed Impressions: Service Date/Time: Wednesday, August 02, 2017 20:39 - CONCLUSION: 1. Limited visualization of the pulmonary arteries, to the very proximal segmental level only. No evidence for pulmonary artery embolism to this level. 2. Minimal bibasilar atelectasis. 3. Nonspecific slightly prominent mediastinal and right hilar nodes, likely reactive. 4. Visualized portions of the upper abdomen demonstrate probable hepatomegaly. Omari Wang MD Chest X-Ray 08/02/17 1357 Signed Impressions: Service Date/Time: Wednesday, August 02, 2017 14:07 - CONCLUSION: 1. No acute cardiopulmonary disease. Abdiel Martinez MD Course EKGs have been sinus tachycardia rate [id number] and [address] segment depressions Caprini VTE Risk Assessment Caprini VTE Risk Assessment: No/Low Risk (score <= 1) Caprini Risk Assessment Model Point Value = 1 Point Value = 2 Point Value = 3 Point Value = 5 Age 41-60 Minor surgery BMI > 25 kg/m2 Swollen legs Varicose veins or History of unexplained or recurrent spontaneous Oral contraceptives or hormone replacement Sepsis (< 1 month) Serious lung disease, including pneumonia (< 1 month) Abnormal pulmonary function Acute myocardial infarction Congestive heart failure (< 1 month) History of inflammatory bowel disease Medical patient at bed rest Age 61-74 Arthroscopic surgery Major open surgery (> 45 min) Laparoscopic surgery (> 45 min) Malignancy Confined to bed (> 72 hours) Immobilizing plaster cast Central venous access Age >= 75 History of VTE Family history of VTE Factor V Leiden Prothrombin [id number] Lupus anticoagulant Anticardiolipin antibodies Elevated serum homocysteine Heparin-induced thrombocytopenia Other congenital or acquired thrombophilia Stroke (< 1 month) Elective arthroplasty Hip, pelvis, or leg fracture Acute spinal cord injury (< 1 month) Prophylaxis Regimen Total Risk Factor Score Risk Level Prophylaxis Regimen 0-1 Low Early ambulation 2 Moderate Order ONE of the following: *Sequential Compression Device (SCD) *Heparin 5000 units SQ BID 3-4 Higher Order ONE of the following medications: *Heparin 5000 units SQ TID *Enoxaparin/Lovenox 40 mg SQ daily (WT < 150 kg, CrCl > 30 mL/min) *Enoxaparin/Lovenox 30 mg SQ daily (WT < 150 kg, CrCl > 10-29 mL/min) *Enoxaparin/Lovenox 30 mg SQ BID (WT < 150 kg, CrCl > 30 mL/min) AND/OR *Sequential Compression Device (SCD) 5 or more Highest Order ONE of the following medications: *Heparin 5000 units SQ TID (Preferred with Epidurals) *Enoxaparin/Lovenox 40 mg SQ daily (WT < 150 kg, CrCl > 30 mL/min) *Enoxaparin/Lovenox 30 mg SQ daily (WT < 150 kg, CrCl > 10-29 mL/min) *Enoxaparin/Lovenox 30 mg SQ BID (WT < 150 kg, CrCl > 30 mL/min) AND *Sequential Compression Device (SCD) Assessment and Plan Assessment and Plan * Atypical chest pain: Patient has had serial cardiac enzymes and EKGs for ruling out purposes. She was seen by Dr. Abdiel Youssef of cardiology in the [facility] pain center. Upon reviewing records she had a nonischemic Lexiscan January 2017. Her symptoms appear more related to her asthma. That will be treated. Afterwards, patient will be discharged home with instructions to follow-up with PCP. Return to ED for interval issues. * Asthma: Patient was given Solu-Medrol and DuoNeb in the ED and was feeling better yesterday. At J repeat a dose of Solu-Medrol and DuoNeb patient's wheezing had cleared more. There is still a little more wheezing in the right apex with expiration 1 more breathing treatment will be provided. Patient will need to continue medication at discharge. * Hypertension: Continue current medication. * Poorly controlled diabetes: Patient has been counseled on the importance of following a diabetic diet. States she does not know what a diabetic diet is, I have shown her on the Internet work to find an appropriate 1800-calorie ADA diet and states that she will begin this today. Patient will need to hold her metformin for 48 hours as she had a CT with contrast, otherwise resume her medication now. * Hyperlipidemia: Continue current medication. * History of CVA: Continue medication. Patient is stable at this time. She is agreeable to this plan. Deo Adamson Aug 03, 2017 11:22
[2017-08-03] MEDS ORDERED: METF500 PO (11:26)
--- NOTE | 2017-08-03 11:27 | HHI.DCPOC ---
Discharge Care Plan Diagnosis: (1) Chest pain (2) Asthma (3) Uncontrolled diabetes mellitus (4) HTN (hypertension) (5) Hyperlipidemia (6) History of CVA (cerebrovascular accident) Goals to Promote Your Health * To prevent worsening of your condition and complications * To maintain your health at the optimal level Directions to Meet Your Goals Take your medications as prescribed Follow your dietary instruction Follow activity as directed Keep your appointments as scheduled Take your immunizations and boosters as scheduled If your symptoms worsen call your PCP, if no PCP go to Urgent Care Center or Emergency Room Smoking is Dangerous to Your Health. Avoid second hand smoke Call the 24-hour hour crisis hotline for domestic abuse at Deo Adamson Aug 03, 2017 11:27
--- NOTE | 2017-08-03 15:43 | EKG ---
Date Performed: 08/02/2017 Time Performed: 14:54:01 PTAGE: 42 years EKG: SINUS TACHYCARDIA POSSIBLE LEFT ATRIAL ENLARGEMENT POSSIBLE LEFT VENTRICULAR HYPERTROPHY AB NORMAL ECG PREVIOUS TRACING : 01/22/2017 15.54 DOCTOR: Bay Peters Interpretating Date/Time 08/03/2017 15:41:54
--- NOTE | 2017-08-03 15:53 | EKG ---
Date Performed: 08/03/2017 Time Performed: 02:11:51 PTAGE: 42 years EKG: SINUS TACHYCARDIA POSSIBLE LEFT ATRIAL ENLARGEMENT ABNORMAL RHYTHM ECG PREVIOUS TRACING : 08/02/2017 14.54 Since previous tracing, no significant change noted DOCTOR: Abdiel Youssef Interpretating Date/Time 08/03/2017 15:52:46
--- NOTE | 2017-08-03 15:56 | EKG ---
Date Performed: 08/02/2017 Time Performed: 23:04:43 PTAGE: 42 years EKG: SINUS TACHYCARDIA ABNORMAL RHYTHM ECG NO PREVIOUS TRACING DOCTOR: Abdiel Youssef Interpretating Date/Time 08/03/2017 15:53:43
[2017-08-03] MEDS ORDERED: PRAVASTATIN SOD 40 MG TAB PO SCH (21:00)
== END 2017-08-03 12:20 | disposition home or self-care (01) ==
LOC: NEPE 13:47 → NEDA 22:54 → NEPFCDU 23:39
PROVIDERS: ADMIT Internal Medicine Interventional Cardiology; ATTEND Internal Medicine Interventional Cardiology
DX: R07.89 Other chest pain (principal); R06.02 Shortness of breath; R05 Cough; R06.2 Wheezing; R11.10 Vomiting, unspecified; R00.2 Palpitations; J45.909 Unspecified asthma, uncomplicated; I10 Essential (primary) hypertension; E11.65 Type 2 diabetes mellitus with hyperglycemia; E78.5 Hyperlipidemia, unspecified; R00.0 Tachycardia, unspecified; R94.31 Abnormal electrocardiogram [ECG] [EKG]; H91.90 Unspecified hearing loss, unspecified ear; E66.9 Obesity, unspecified; Z86.73 Personal history of transient ischemic attack (TIA), and cerebral infarction without residual deficits; Z79.899 Other long term (current) drug therapy; Z79.82 Long term (current) use of aspirin; Z79.84 Long term (current) use of oral hypoglycemic drugs; Z87.891 Personal history of nicotine dependence
CPT/HCPCS: 71046; 71275; 80048; 82550; 82947; 82948; 83735; 84484; 84703; 85025; 85610; 85730; 87804; 93005; 94640; 94664; 96361; 96372; 96374; 96375; 96376; 99285; G0378; J1815; J1885; J2930; J7040; Q9967

== ENCOUNTER 2017-08-20 09:52 | Emergency (ER) | payer MEDICAID ==
[~2017-08-20] VITALS: Ht 167.6 cm; Wt 127.0 kg
[~2017-08-20 09:52] MED LIST changes: +GLYB5TAB3 PO; -HYDR25TA5 PO; -PROT40TA PO; -ZOFR4TAB PO
[2017-08-20 10:10] VITALS: BP 148/69; PULSE 93; RESP 16; TEMP 99.1
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
[2017-08-20] MEDS ORDERED: PROPARACAINE HCL 0.5% OPHT SOLN 15 ML BTL LEFT EYE ONE (10:45)
[2017-08-20] MEDS ORDERED: ERYTOIN10 LEFT EYE (11:21)
== END 2017-08-20 11:38 | disposition home or self-care (01) ==
LOC: NEPD 09:52
DX: T15.92XA Foreign body on external eye, part unspecified, left eye, initial encounter (principal); J45.909 Unspecified asthma, uncomplicated; E78.00 Pure hypercholesterolemia, unspecified; E11.9 Type 2 diabetes mellitus without complications; K21.9 Gastro-esophageal reflux disease without esophagitis; I10 Essential (primary) hypertension; Z86.73 Personal history of transient ischemic attack (TIA), and cerebral infarction without residual deficits; Z79.82 Long term (current) use of aspirin; Z79.4 Long term (current) use of insulin
CPT/HCPCS: 99283

== ENCOUNTER 2017-11-25 12:21 | Observation (INO) | payer MEDICAID ==
[~2017-11-25] VITALS: Ht 165.1 cm; Wt 145.0 kg
[2017-11-25] VITALS (7 sets, daily range): BP systolic 121–168; BP diastolic 70–90; PULSE 89–98; RESP 18; TEMP 97.8–98.7; O2SAT 97–100
[~2017-11-25 12:21] MED LIST changes: +ERYTOIN10 LEFT EYE
[2017-11-25] MEDS ORDERED: SODIUM CHLORIDE 0.9% FLUSH 10 ML FLUSH IVF PRN (13:00)
[2017-11-25] MEDS ORDERED: ASPIRIN 325 MG TAB PO ONE (13:00)
[2017-11-25 13:07] LABS: AUTOMATED NEUTROPHIL # 5.8 TH/MM3 (1.8-7.7); BASOPHIL # 0.1 TH/MM3 (0-0.2); BASOPHIL % 1.1 % (0.0-2.0); HEMATOCRIT 34.4 % (35.0-46.0); HEMOGLOBIN 12.2 GM/DL (11.6-15.3); LYMPH % 34.7 % (9.0-44.0); LYMPHOCYTE # 3.6 TH/MM3 (1.0-4.8); MEAN CELL VOLUME 76.8 FL (80.0-100.0); MEAN CORPUSCULAR HEMOGLOBIN 27.1 PG (27.0-34.0); MEAN CORPUSCULAR HGB CONC 35.3 % (32.0-36.0); MEAN PLATELET VOLUME 8.1 FL (7.0-11.0); MONO % 7.9 % (0.0-8.0); MONOCYTE # 0.8 TH/MM3 (0-0.9); NEUT % 56.3 % (16.0-70.0); PLATELET COUNT 414 TH/MM3 (150-450); RED BLOOD COUNT 4.48 MIL/MM3 (4.00-5.30); RED CELL DISTRIBUTION WIDTH 15.8 % (11.6-17.2); WHITE BLOOD COUNT 10.4 TH/MM3 (4.0-11.0)
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
[2017-11-25] MEDS ORDERED: SODIUM CHLOR 0.9% 1000 ML INJ 1,000 ML IV ONE (13:15)
[2017-11-25] MEDS ORDERED: INSULIN HUMAN REGULAR 1,000 UNITS/10 ML VIAL IV PUSH ONE (13:15)
[2017-11-25 13:17] LABS: INTERNATIONAL NORMALIZED RATIO 0.9 RATIO; PROTHROMBIN TIME - PATIENT 9.6 SEC (9.8-11.6)
--- NOTE | 2017-11-25 13:26 | RADRPT ---
EXAM DATE: 11/25/2017 1:22 PM EDT AGE/SEX: 42 years / Female INDICATIONS: Chest pain. CLINICAL DATA: This is the patient's initial encounter. Patient reports that signs and symptoms have been present for 2 days and indicates a pain score of 7/10. MEDICAL/SURGICAL HISTORY: Hypertension. Stroke. None. COMPARISON: [facility] [place], [place]. . FINDINGS: A single AP view of the chest demonstrates the lungs to be symmetrically aerated without evidence of mass, infiltrate or effusion. The cardiomediastinal contours are unremarkable. Osseous structures a re intact. CONCLUSION: Negative for an acute process Electronically signed by: Florian Castanon MD 11/25/2017 1:25 PM EDT
[2017-11-25 14:37] LABS: BICARBONATE 21.5 MEQ/L (21.0-32.0); BLOOD UREA NITROGEN 6 MG/DL (7-18); CALCIUM 8.9 MG/DL (8.5-10.1); CHLORIDE 100 MEQ/L (98-107); CREATININE 0.81 MG/DL (0.50-1.00); GLOMERULAR FILTRATION RATE 94 ML/MIN (>89); GLUCOSE,RANDOM 405 MG/DL (74-106); MAGNESIUM 1.9 MG/DL (1.5-2.5); SODIUM (NA) 134 MEQ/L (136-145); TROPONIN I LESS THAN 0.02 NG/ML (0.02-0.05)
[2017-11-25] MEDS ORDERED: GLUCAGON 1 MG/ML VIAL OTHER PRN (16:30)
[2017-11-25] MEDS ORDERED: INSULIN ASPART 1,000 UNITS/10 ML VIAL SQ ONE (16:30)
[2017-11-25] MEDS ORDERED: SODIUM CHLORIDE 0.9% FLUSH 10 ML FLUSH IV FLUSH PRN (16:30)
[2017-11-25] MEDS ORDERED: NALOXONE HCL 0.4 MG/ML AMP IV PUSH PRN (16:30)
[2017-11-25] MEDS ORDERED: RESP: ALBUTEROL 2.5 MG/IPRATROPIUM 0.5 MG NEB (PRN) NEB (16:30)
[2017-11-25] MEDS ORDERED: METOCLOPRAMIDE HCL 10 MG/2 ML VIAL IV PUSH PRN (16:30)
[2017-11-25] MEDS ORDERED: hydrALAZINE HCL 25 MG TAB PO PRN (16:30)
[2017-11-25] MEDS ORDERED: DEXTROSE 50% IN WATER 50 ML VIAL(D50) IV PUSH PRN (16:30)
[2017-11-25] MEDS ORDERED: MAGNESIUM HYDROXIDE SUSP 30 ML CUP PO PRN (16:30)
[2017-11-25] MEDS ORDERED: NITROGLYCERIN 0.4 MG SL 25 TABS/BTL SL PRN (16:45)
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
[2017-11-25] MEDS: ACETAMINOPHEN 325 MG TAB PO PRN ×2 (16:49→21:16)
[2017-11-25] MEDS: INSULIN ASPART SUPPLEMENTAL SCALE SQ SCH ×2 (16:52→21:09)
[2017-11-25] MEDS ORDERED: INSULIN HUMAN NPH/R 70/30 1,000 UNITS/10 ML VIAL SQ SCH (17:00)
[2017-11-25] MEDS: ENOXAPARIN SODIUM 30 MG/0.3 ML SYRINGE SQ SCH (17:50)
[2017-11-25 20:27] LABS: TROPONIN I LESS THAN 0.02 NG/ML (0.02-0.05)
[2017-11-25] MEDS: PRAVASTATIN SOD 40 MG TAB PO SCH (21:08)
[2017-11-25] MEDS: FAMOTIDINE 20 MG TAB PO SCH (21:08)
[2017-11-25] MEDS: SODIUM CHLORIDE 0.9% FLUSH 10 ML FLUSH IV FLUSH SCH (21:08)
[2017-11-25] MEDS: INSULIN DETEMIR 100 UNITS/ML VIAL SQ SCH (21:09)
[2017-11-26] VITALS (9 sets, daily range): BP systolic 136–166; BP diastolic 65–88; PULSE 86–93; RESP 15–18; TEMP 97.8–98.9; O2SAT 95–100
[2017-11-26 02:35] LABS: TROPONIN I LESS THAN 0.02 NG/ML (0.02-0.05)
[2017-11-26] MEDS: LISINOPRIL 20 MG TAB PO SCH (08:27)
[2017-11-26] MEDS: FAMOTIDINE 20 MG TAB PO SCH ×2 (08:27→21:15)
[2017-11-26] MEDS: SODIUM CHLORIDE 0.9% FLUSH 10 ML FLUSH IV FLUSH SCH ×2 (08:27→21:16)
[2017-11-26] MEDS: glyBURIDE 5 MG TAB PO SCH (08:27)
[2017-11-26] MEDS: ACETAMINOPHEN 325 MG TAB PO PRN ×2 (08:28→18:13)
[2017-11-26] MEDS: ASPIRIN EC 81 MG TABEC PO SCH (08:28)
[2017-11-26] MEDS: INSULIN DETEMIR 100 UNITS/ML VIAL SQ SCH (08:35)
[2017-11-26] MEDS: INSULIN ASPART SUPPLEMENTAL SCALE SQ SCH ×4 (08:36→21:16)
[2017-11-26 09:21] LABS: AUTOMATED NEUTROPHIL # 4.8 TH/MM3 (1.8-7.7); BASOPHIL # 0.1 TH/MM3 (0-0.2); BASOPHIL % 0.9 % (0.0-2.0); EOSINOPHIL % 0.4 % (0.0-4.0); HEMATOCRIT 36.6 % (35.0-46.0); HEMOGLOBIN 11.8 GM/DL (11.6-15.3); LYMPH % 37.5 % (9.0-44.0); LYMPHOCYTE # 3.3 TH/MM3 (1.0-4.8); MEAN CELL VOLUME 77.8 FL (80.0-100.0); MEAN CORPUSCULAR HEMOGLOBIN 25.2 PG (27.0-34.0); MEAN CORPUSCULAR HGB CONC 32.4 % (32.0-36.0); MEAN PLATELET VOLUME 8.2 FL (7.0-11.0); MONO % 6.9 % (0.0-8.0); MONOCYTE # 0.6 TH/MM3 (0-0.9); NEUT % 54.3 % (16.0-70.0); PLATELET COUNT 430 TH/MM3 (150-450); RED CELL DISTRIBUTION WIDTH 15.8 % (11.6-17.2); WHITE BLOOD COUNT 8.8 TH/MM3 (4.0-11.0)
[2017-11-26 10:02] LABS: ALKALINE PHOSPHATASE 88 U/L (45-117); ALT (GPT) 20 U/L (10-53); AST (GOT) 12 U/L (15-37); BICARBONATE 23.7 MEQ/L (21.0-32.0); BLOOD UREA NITROGEN 5 MG/DL (7-18); CALCIUM 8.5 MG/DL (8.5-10.1); CHLORIDE 101 MEQ/L (98-107); CHOLESTEROL 190 MG/DL (120-200); CHOLESTEROL/ HDL RATIO 5.97 RATIO; CREATININE 0.49 MG/DL (0.50-1.00); GLOMERULAR FILTRATION RATE 168 ML/MIN (>89); GLUCOSE,RANDOM 290 MG/DL (74-106); HDL CHOLESTEROL 31.8 MG/DL (40.0-60.0); LDL CHOLESTEROL 98 MG/DL (0-99); SODIUM (NA) 136 MEQ/L (136-145); TOTAL BILIRUBIN ADULT 0.2 MG/DL (0.2-1.0); TOTAL PROTEIN 7.3 GM/DL (6.4-8.2); TRIGLYCERIDES 299 MG/DL (42-150)
--- NOTE | 2017-11-26 10:17 | HHI.PR ---
Subjective Remarks Follow-up for atypical chest pain, uncontrolled diabetes. Patient reports continued right anterior nonradiating chest pains, described as a constant 7.5/ 10 "pulling" pains, associated with occasional nausea but no vomiting, diaphoresis, dizziness, shortness of breath. Patient states she has been having these chest pains intermittently however has become worse over the past week. She states the pains can come on at any time. Denies noticing any worsening pain after meals. She states she has been told in the past that she has gallstones. She has no other medical complaints at this time. Objective Vitals Vital Signs Date Time Temp Pulse Resp B/P (MAP) Pulse Ox O2 Delivery O2 Flow Rate FiO2 11/26/17 08:00 97.8 93 15 136/74 (94) 100 11/26/17 03:17 98.3 90 18 156/69 (98) 98 11/25/17 23:34 98.5 89 18 157/70 (99) 99 11/25/17 19:19 98.7 94 18 143/72 (95) 100 11/25/17 17:25 97.8 91 18 121/71 (88) 100 11/25/17 17:04 11/25/17 16:38 93 18 142/90 (107) 100 Room Air 11/25/17 15:00 93 18 168/77 (107) 99 Room Air 11/25/17 12:57 98 18 97 Room Air 11/25/17 12:35 88 18 97 Room Air 11/25/17 12:27 98.6 96 18 154/78 (103) 100 I/O 11/25/17 11/25/17 11/25/17 11/26/17 11/26/17 11/26/17 06:59 14:59 22:59 06:59 14:59 22:59 Intake Total 240 ml Balance 240 ml Intake Oral 240 ml # Voids 1 Result Diagram: 11/26/17 0906 11/26/17 0906 Imaging Last Impressions Chest X-Ray 11/25/17 1246 Signed Impressions: CONCLUSION: Negative for an acute process Objective Remarks GENERAL: Well-nourished, well-developed middle-aged obese female patient in [facility]. SKIN: Warm and dry. No rash. HEENT: Normocephalic. Atraumatic. Pupils equal and round. Mucous membranes pink and moist. CARDIOVASCULAR: Regular rate and rhythm. No murmur appreciated. Right anterior chest tender to palpation. RESPIRATORY: No accessory muscle use. Clear to auscultation. Breath sounds equal bilaterally. GASTROINTESTINAL: Abdomen soft, non-tender, nondistended. Normoactive bowel sounds x4. MUSCULOSKELETAL: No obvious deformities. Extremities without clubbing, cyanosis , or edema. NEUROLOGICAL: Awake and alert. No obvious cranial nerve deficits. Motor grossly within normal limits. Moving all extremities spontaneously. Normal speech. PSYCHIATRIC: Appropriate mood and affect; insight and judgment normal. Medications and IVs Current Medications Medications (Trade) Dose Ordered Sig/Josep Route Start Time Stop Time Status Last Admin (NS Flush) 2 ml UNSCH PRN IVF 11/25/17 13:00 (NS Flush) 2 ml UNSCH PRN IV FLUSH 11/25/17 16:30 (NS Flush) 2 ml BID IV FLUSH 11/25/17 21:00 11/26/17 08:27 (Tylenol) 650 mg Q4H PRN PO 11/25/17 16:30 11/25/17 21:16 (Reglan Inj) 5 mg Q6H PRN IV PUSH 11/25/17 16:30 (Lovenox Inj) 30 mg Q24H SQ 11/25/17 17:00 (Tylenol) 650 mg Q6H PRN PO 11/25/17 16:30 11/26/17 08:28 (Narcan Inj) 0.4 mg UNSCH PRN IV PUSH 11/25/17 16:30 (Milk Of Magnesia Liq) 30 ml Q12H PRN PO 11/25/17 16:30 (D50w (Vial) Inj) 50 ml UNSCH PRN IV PUSH 11/25/17 16:30 (Glucagon Inj) 1 mg UNSCH PRN OTHER 11/25/17 16:30 (NovoLOG SUPPLEMENTAL SCALE) 1 ACHS SLIDING SCALE SQ 11/25/17 17:00 11/25/17 21:09 (Diabeta) 10 mg DAILY PO 11/26/17 09:00 11/26/17 08:27 (Prinivil) 20 mg DAILY PO 11/26/17 09:00 11/26/17 08:27 (Pravachol) 40 mg HS PO 11/25/17 21:00 11/25/17 21:08 (Duoneb Neb) 1 ampule Q2HR NEB PRN NEB 11/25/17 16:30 (Apresoline) 25 mg Q8HR PRN PO 11/25/17 16:30 (Pepcid) 20 mg BID PO 11/25/17 21:00 11/26/17 08:27 (Levemir Inj) 16 units Q12HR SQ 11/25/17 21:00 11/26/17 08:35 (Nitrostat Sl) 0.4 mg Q5M PRN SL 11/25/17 16:45 (Ecotrin Ec) 81 mg DAILY PO 11/26/17 09:00 11/26/17 08:28 A/P Problem List: (1) Chest pain ICD Code: R07.9 - Chest pain, unspecified Status: Acute (2) Uncontrolled diabetes mellitus ICD Code: E11.65 - Type 2 diabetes mellitus with hyperglycemia (3) Noncompliance ICD Code: Z91.19 - Patient's noncompliance with other medical treatment and regimen (4) HTN (hypertension) ICD Code: I10 - Essential (primary) hypertension Status: Acute (5) Hyperlipidemia ICD Code: E78.5 - Hyperlipidemia, unspecified Assessment and Plan 42-year-old female with history of poorly controlled diabetes, hypertension, hyperlipidemia, CVA in January 2017 presented to the ED for evaluation of an acute onset of intermittent substernal chest pain Atypical chest pain: acute. -ACS ruled out with negative serial cardiac enzymes 3, and EKG without acute ischemic changes -Due to multiple risk factors, check nuclear stress test and consult cardiology as needed -Start ASA/NTG and resume Statin -Check 2D echo -UDS positive for marijuana Uncontrolled diabetes mellitus: Patient ran out of home insulin a few days ago -Continue Levemir 16 units bid and resume glipizide. 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 Problem Qualifiers (1) Chest pain: Qualified Codes: R07.9 - Chest pain, unspecified (2) HTN (hypertension): Qualified Codes: I10 - Essential (primary) hypertension Lucinda Bourne PA-C Nov 26, 2017 10:17
--- NOTE | 2017-11-26 12:57 | EKG ---
Date Performed: 11/25/2017 Time Performed: 11:48:14 PTAGE: 42 years EKG: Sinus rhythm LEFT ATRIAL ENLARGEMENT POSSIBLE LEFT VENTRICULAR HYPERTROPHY ABNORMAL ECG PREVIOUS TRACING : 08/03/2017 02.11 Since the previous tracing, no significant change noted DOCTOR: Noah Zabala Interpretating Date/Time 11/26/2017 12:53:46
--- NOTE | 2017-11-26 12:57 | EKG ---
Date Performed: 11/26/2017 Time Performed: 01:17:49 PTAGE: 42 years EKG: Sinus rhythm NORMAL ECG PREVIOUS TRACING : 11/25/2017 19.16 Since the previous tracing, no significant change noted DOCTOR: Noah Zabala Interpretating Date/Time 11/26/2017 12:53:25
--- NOTE | 2017-11-26 12:57 | EKG ---
Date Performed: 11/25/2017 Time Performed: 19:16:09 PTAGE: 42 years EKG: Sinus rhythm POSSIBLE LEFT ATRIAL ENLARGEMENT BORDERLINE ECG PREVIOUS TRACING : 11/25/2017 11.48 Since the previous tracing, no significant change noted DOCTOR: Noah Zabala Interpretating Date/Time 11/26/2017 12:53:38
[2017-11-26] MEDS ORDERED: REGADENOSON INJ 0.4 MG/5 ML SYR ONE (13:35)
[2017-11-26 15:18] LABS: HEMOGLOBIN A1C 14.2 % (4.3-6.0)
[2017-11-26] MEDS: ENOXAPARIN SODIUM 30 MG/0.3 ML SYRINGE SQ SCH (17:17)
[2017-11-26] MEDS ORDERED: INSULIN DETEMIR 100 UNITS/ML VIAL SQ SCH (21:00)
[2017-11-26] MEDS: PRAVASTATIN SOD 40 MG TAB PO SCH (21:15)
[2017-11-27] VITALS (8 sets, daily range): BP systolic 136–166; BP diastolic 72–81; PULSE 83–93; RESP 16–20; TEMP 98–98.9; O2SAT 99–100
[2017-11-27] MEDS: FAMOTIDINE 20 MG TAB PO SCH ×2 (08:25→21:18)
[2017-11-27] MEDS: ASPIRIN EC 81 MG TABEC PO SCH (08:25)
[2017-11-27] MEDS: glyBURIDE 5 MG TAB PO SCH (08:25)
[2017-11-27] MEDS: LISINOPRIL 20 MG TAB PO SCH (08:25)
[2017-11-27] MEDS: INSULIN ASPART SUPPLEMENTAL SCALE SQ SCH ×4 (08:26→21:20)
[2017-11-27] MEDS: SODIUM CHLORIDE 0.9% FLUSH 10 ML FLUSH IV FLUSH SCH ×2 (08:26→21:18)
--- NOTE | 2017-11-27 08:27 | HHI.PR ---
Subjective Remarks Follow-up for atypical chest pain, uncontrolled diabetes. The patient reports feeling better today. She states her chest pains have resolved. Denies any medical complaints including no headache, lightheadedness, chest pain, palpitations, shortness of breath, or abdominal complaints. She is tolerating oral intake. She wants to go home today. Objective Vitals Vital Signs Date Time Temp Pulse Resp B/P (MAP) Pulse Ox O2 Delivery O2 Flow Rate FiO2 11/27/17 03:54 98.0 93 18 166/72 (103) 100 11/26/17 23:27 98.1 86 18 162/72 (102) 100 11/26/17 19:28 98.9 88 16 148/65 (92) 100 11/26/17 16:00 98.4 92 17 137/67 (90) 95 11/26/17 15:12 90 11/26/17 12:00 98.2 86 17 166/88 (114) 96 11/26/17 11:05 86 I/O 11/26/17 11/26/17 11/26/17 11/27/17 11/27/17 11/27/17 07:00 15:00 23:00 07:00 15:00 23:00 Intake Total 480 ml Balance 480 ml Intake Oral 480 ml # Voids 3 6 # Bowel Movements 1 Result Diagram: 11/26/17 0906 11/26/17 0906 Imaging Last Impressions Chest X-Ray 11/25/17 1246 Signed Impressions: CONCLUSION: Negative for an acute process Objective Remarks GENERAL: Well-nourished, well-developed pleasant middle-aged obese female patient in [facility]. SKIN: Warm and dry. No rash. HEENT: Normocephalic. Atraumatic. Pupils equal and round. Mucous membranes pink and moist. CARDIOVASCULAR: Regular rate and rhythm. No murmur appreciated. Chest nontender today. RESPIRATORY: No accessory muscle use. Clear to auscultation. Breath sounds equal bilaterally. GASTROINTESTINAL: Abdomen soft, non-tender, nondistended. Normoactive bowel sounds x4. MUSCULOSKELETAL: No obvious deformities. Extremities without clubbing, cyanosis , or edema. NEUROLOGICAL: Awake and alert. No obvious cranial nerve deficits. Motor grossly within normal limits. Moving all extremities spontaneously. Normal speech. PSYCHIATRIC: Appropriate mood and affect; insight and judgment normal. Medications and IVs Current Medications Medications (Trade) Dose Ordered Sig/Josep Route Start Time Stop Time Status Last Admin (NS Flush) 2 ml UNSCH PRN IVF 11/25/17 13:00 (NS Flush) 2 ml UNSCH PRN IV FLUSH 11/25/17 16:30 (NS Flush) 2 ml BID IV FLUSH 11/25/17 21:00 11/27/17 08:26 (Tylenol) 650 mg Q4H PRN PO 11/25/17 16:30 11/25/17 21:16 (Reglan Inj) 5 mg Q6H PRN IV PUSH 11/25/17 16:30 (Lovenox Inj) 30 mg Q24H SQ 11/25/17 17:00 (Tylenol) 650 mg Q6H PRN PO 11/25/17 16:30 11/26/17 18:13 (Narcan Inj) 0.4 mg UNSCH PRN IV PUSH 11/25/17 16:30 (Milk Of Magnesia Liq) 30 ml Q12H PRN PO 11/25/17 16:30 (D50w (Vial) Inj) 50 ml UNSCH PRN IV PUSH 11/25/17 16:30 (Glucagon Inj) 1 mg UNSCH PRN OTHER 11/25/17 16:30 (NovoLOG SUPPLEMENTAL SCALE) 1 ACHS SLIDING SCALE SQ 11/25/17 17:00 11/27/17 08:26 (Diabeta) 10 mg DAILY PO 11/26/17 09:00 11/27/17 08:25 (Prinivil) 20 mg DAILY PO 11/26/17 09:00 11/27/17 08:25 (Pravachol) 40 mg HS PO 11/25/17 21:00 11/26/17 21:15 (Duoneb Neb) 1 ampule Q2HR NEB PRN NEB 11/25/17 16:30 (Apresoline) 25 mg Q8HR PRN PO 11/25/17 16:30 (Pepcid) 20 mg BID PO 11/25/17 21:00 11/27/17 08:25 (Nitrostat Sl) 0.4 mg Q5M PRN SL 11/25/17 16:45 (Ecotrin Ec) 81 mg DAILY PO 11/26/17 09:00 11/27/17 08:25 (Levemir Inj) 20 units Q12HR SQ 11/27/17 09:00 11/27/17 08:25 A/P Problem List: (1) Chest pain ICD Code: R07.9 - Chest pain, unspecified Status: Acute (2) Uncontrolled diabetes mellitus ICD Code: E11.65 - Type 2 diabetes mellitus with hyperglycemia (3) Noncompliance ICD Code: Z91.19 - Patient's noncompliance with other medical treatment and regimen (4) HTN (hypertension) ICD Code: I10 - Essential (primary) hypertension Status: Acute (5) Hyperlipidemia ICD Code: E78.5 - Hyperlipidemia, unspecified Assessment and Plan 42-year-old female with history of poorly controlled diabetes, hypertension, hyperlipidemia, CVA in January 2017 presented to the ED for evaluation of an acute onset of intermittent substernal chest pain Atypical chest pain: acute. -ACS ruled out with negative serial cardiac enzymes 3, and EKG without acute ischemic changes -Due to multiple risk factors, check nuclear stress test and consult cardiology as needed -Start ASA/NTG and resume Statin -Check 2D echo -UDS positive for marijuana Uncontrolled diabetes mellitus: Patient ran out of home insulin a few days ago -Continue Levemir 16 units bid and resume glipizide. -Hemoglobin A1c 14.2 -BG improving however still uncontrolled, increase Levemir to 20 units bid -Consult residential program worker and office workforce planner Hyperlipidemia -lipid profile with triglycerides 299 and LDL 98 -with diabetes, goal LDL < 70 -Continue on statin Hypertension -Labile BP -Resume Prinivil 20 mg daily -Continue hydralazine as needed -BP improved DVT prophylaxis: Lovenox Discharge Planning Discharge pending nuclear stress test, echo, and further blood glucose control Problem Qualifiers (1) Chest pain: Qualified Codes: R07.9 - Chest pain, unspecified (2) HTN (hypertension): Qualified Codes: I10 - Essential (primary) hypertension Lucinda Bourne PA-C Nov 27, 2017 8:27 am
[2017-11-27] MEDS ORDERED: INSULIN DETEMIR 100 UNITS/ML VIAL SQ SCH (09:00)
--- NOTE | 2017-11-27 13:06 | RADRPT ---
EXAM DATE: 11/27/2017 11:30 AM EDT AGE/SEX: 42 years / Female INDICATIONS:Angina. . Chest pain. CLINICAL DATA: This is the patient's initial encounter. Patient reports that signs and symptoms have been present for 1 day and indicates a pain score of 0/10. MEDICAL/SURGICAL HISTORY: Cerebrovascular disease. Diabetes mellitus type II. Hypertension. T ubal ligation. COMPARISON: [facility], MYOCARDIAL PERF PHARM SPECT, 01/24/2017. . DOSE: 32.2 mCi Tc 99m Myoview at rest 32.2 mCi [id number] at stress 0.4 mg Lexiscan STRESS SYMPTOMS: Dyspnea and headache. EJECTION FRACTION: 47 % TECHNIQUE: The patient underwent pharmacologic stress with infusion of prescribed dose. Continuous ECG tracing was monitored during stress. Gated SPECT imaging was performed after stress and conventi onal SPECT imaging was performed at rest. The examination was performed on a SPECT/CT scanner, both attenuation and non-corrected datasets were reviewed. FINDINGS: Distribution: The maximum perfused segment at stress is in the lateral wall. Perfusion Study: The pattern of perfusion at stress is within normal limits with regional variation s perfusion within 35%) there is different amount of upper abdominal gut activity between stress and rest exam which alters the degree of uptake in the inferior wall. When taking into account the differ ences and scattered, no significant change in the pattern of perfusion between stress and rest. Gated Study: There are intact wall motion and wall thickening without hypokinetic or dyskinetic segm ents. The ejection fraction is calculated at 47%. Prior ejection fraction in January 2017 was 45%. RISK CATEGORY: Low (<1% Annual Motality Rate) CONCLUSION: 1. No evidence of stress-induced ischemia. 2. Mildly depressed ejection fraction of 47%, slightly improved from 2017. Electronically signed by: Ortiz Maldonado MD 11/27/2017 1:05 PM EDT
--- NOTE | 2017-11-27 16:16 | ECHRPT ---
Indication: CHEST PAIN CONCLUSIONS Normal left ventricular size. Moderate concentric left ventricular hypertrophy. The left ventricular systolic function is normal with an estimated ejection fraction in the range of 55-60%. The pulmonary valve is not well visualized. BP: / HR: Rhythm: Technical Quality: FINDINGS LEFT VENTRICLE Normal left ventricular size. Moderate concentric left ventricular hypertrophy. The left ventricular systolic function is normal with an estimated ejection fraction in the range of 55-60%. RIGHT VENTRICLE Normal right ventricular size and systolic function. LEFT ATRIUM The left atrial size is normal. RIGHT ATRIUM The right atrial size is normal. ATRIAL SEPTUM Normal atrial septal thickness without atrial level shunting by limited color doppler interrogation. AORTA The aortic root and proximal ascending aorta are normal in size on limited imaging. MITRAL VALVE Structurally normal mitral valve. No mitral valve stenosis or regurgitation. AORTIC VALVE Trileaflet aortic valve. No aortic valve stenosis or regurgitation. TRICUSPID VALVE Structurally normal tricuspid valve. No tricuspid valve stenosis or regurgitation. PULMONARY VALVE The pulmonary valve is not well visualized. VESSELS The inferior vena cava is normal in size. PERICARDIUM No pericardial effusion. Bay Peters MD, FACC (Electronically Signed) Final Date:27 November 2017 16:14
[2017-11-27] MEDS: ACETAMINOPHEN 325 MG TAB PO PRN ×2 (16:42→21:19)
[2017-11-27] MEDS: ENOXAPARIN SODIUM 30 MG/0.3 ML SYRINGE SQ SCH (17:29)
[2017-11-27] MEDS ORDERED: INSU1MIS15 (18:11)
[2017-11-27] MEDS ORDERED: LEVEMIR SQ (18:11)
[2017-11-27] MEDS ORDERED: NOVOLOGP2 SQ (18:11)
[2017-11-27] MEDS: PRAVASTATIN SOD 40 MG TAB PO SCH (21:18)
[2017-11-27] MEDS: INSULIN DETEMIR 100 UNITS/ML VIAL SQ SCH (21:19)
[2017-11-28 04:14] VITALS: BP 184/86; PULSE 89; RESP 17; TEMP 98.1; O2SAT 96
[2017-11-28] MEDS ORDERED: AMLO5 PO ×2 (07:22→08:18)
[2017-11-28] MEDS ORDERED: GLYB5TAB3 PO (08:17)
[2017-11-28] MEDS ORDERED: PRAV40TA PO (08:17)
[2017-11-28] MEDS ORDERED: LISI-515 PO (08:17)
[2017-11-28] MEDS ORDERED: LEVEMIR SQ (08:18)
[2017-11-28] MEDS ORDERED: NOVOLOGP2 SQ (08:18)
--- NOTE | 2017-11-28 08:18 | HHI.DCPOC ---
Discharge Care Plan Diagnosis: (1) DM (diabetes mellitus) (2) HTN (hypertension) (3) Hyperlipidemia (4) Asthma Goals to Promote Your Health * To prevent worsening of your condition and complications * To maintain your health at the optimal level Directions to Meet Your Goals Take your medications as prescribed Follow your dietary instruction Follow activity as directed Keep your appointments as scheduled Take your immunizations and boosters as scheduled If your symptoms worsen call your PCP, if no PCP go to Urgent Care Center or Emergency Room Smoking is Dangerous to Your Health. Avoid second hand smoke Call the 24-hour hour crisis hotline for domestic abuse at Lucinda Bourne PA-C Nov 28, 2017 08:18
--- NOTE | 2017-11-28 08:38 | HHI.DS ---
Discharge Summary Admission Date Nov 25, 2017 at 3:53 pm Discharge Date: Nov 28, 2017 Admitting Diagnosis chest pain, uncontrolled DM/hyperglycemia,htn,obesity (1) Chest pain ICD Code: R07.9 - Chest pain, unspecified Diagnosis: Principal Status: Acute (2) Uncontrolled diabetes mellitus ICD Code: E11.65 - Type 2 diabetes mellitus with hyperglycemia Diagnosis: Secondary (3) Noncompliance ICD Code: Z91.19 - Patient's noncompliance with other medical treatment and regimen Diagnosis: Secondary (4) HTN (hypertension) ICD Code: I10 - Essential (primary) hypertension Diagnosis: Secondary Status: Acute (5) Hyperlipidemia ICD Code: E78.5 - Hyperlipidemia, unspecified Diagnosis: Secondary Procedures None. Brief History - From Admission 42-year-old female with history of poorly controlled diabetes, hypertension, hyperlipidemia, CVA in January 2017 presented to the ED for evaluation of an acute onset of intermittent substernal chest pain described as throbbing without any radiation, diaphoresis. Patient had nonischemic Lexiscan stress test about a year ago. In the ED, she was found to have blood glucose of Patient was found to have a blood glucose of 405. She ran out of her insulin a few days ago. Other than currently complaining of Headache, she denies any visual impairment. CBC/BMP: 11/26/17 0906 11/26/17 0906 Significant Findings Laboratory Tests Test 11/25/17 12:58 11/25/17 19:00 11/26/17 01:07 11/26/17 04:00 Hematocrit 34.4 % (35.0-46.0) Mean Corpuscular Volume 76.8 FL (80.0-100.0) Prothrombin Time 9.6 SEC (9.8-11.6) Blood Urea Nitrogen 6 MG/DL (7-18) Random Glucose 405 MG/DL (74-106) Sodium Level 134 MEQ/L (136-145) Troponin I LESS THAN 0.02 NG/ML LESS THAN 0.02 NG/ML LESS THAN 0.02 NG/ML Urine Cannabinoids Screen POS (NEG) Test 11/26/17 09:06 Mean Corpuscular Volume 77.8 FL (80.0-100.0) Mean Corpuscular Hemoglobin 25.2 PG (27.0-34.0) Blood Urea Nitrogen 5 MG/DL (7-18) Creatinine 0.49 MG/DL (0.50-1.00) Random Glucose 290 MG/DL (74-106) Albumin 3.0 GM/DL (3.4-5.0) Aspartate Amino Transf (AST/SGOT) 12 U/L (15-37) Hemoglobin A1c 14.2 % (4.3-6.0) Triglycerides Level 299 MG/DL (42-150) HDL Cholesterol 31.8 MG/DL (40.0-60.0) Imaging Last Impressions Myocardial Perfusion Scan Nuc Med 11/26/17 0600 Signed Impressions: CONCLUSION: 1. No evidence of stress-induced ischemia. 2. Mildly depressed ejection fraction of 47%, slightly improved from 2017. Chest X-Ray 11/25/17 1246 Signed Impressions: CONCLUSION: Negative for an acute process PE at Discharge GENERAL: Well-nourished, well-developed pleasant middle-aged obese female patient in [facility]. SKIN: Warm and dry. No rash. HEENT: Normocephalic. Atraumatic. Pupils equal and round. Mucous membranes pink and moist. CARDIOVASCULAR: Regular rate and rhythm. No murmur appreciated. Chest nontender today. RESPIRATORY: No accessory muscle use. Clear to auscultation. Breath sounds equal bilaterally. GASTROINTESTINAL: Abdomen soft, non-tender, nondistended. Normoactive bowel sounds x4. MUSCULOSKELETAL: No obvious deformities. Extremities without clubbing, cyanosis , or edema. NEUROLOGICAL: Awake and alert. No obvious cranial nerve deficits. Motor grossly within normal limits. Moving all extremities spontaneously. Normal speech. PSYCHIATRIC: Appropriate mood and affect; insight and judgment normal. Pt update on day of discharge Follow up for chest pain, uncontrolled diabetes and hypertension. The patient reports overall feeling better again today. Chest pain resolved. Denies any cough or shortness of breath. Still having occasional mild headaches, however overall improved. Blood glucose better controlled in the 180-200. Hospital Course 42-year-old female with history of poorly controlled diabetes, hypertension, hyperlipidemia, CVA in January 2017 presented to the ED for evaluation of an acute onset of intermittent substernal chest pain Atypical chest pain: acute. ACS ruled out with negative serial cardiac enzymes 3, and EKG without acute ischemic changes, Due to multiple risk factors, checked nuclear stress test which was unremarkable for ischemia. Given ASA/NTG and resume Statin. 2D echo showed moderate LVH, normal systolic function with EF 55-60%. UDS positive for marijuana. Given pepcid bid. Chest pains resolved. Uncontrolled diabetes mellitus: Patient ran out of home insulin a few days ago. Resumed patient's glipizide. Hemoglobin A1c 14.2 Started on Levemir, titrated dose to 24u bid. BG improving, in the 180s-200s. Consulted natural resources extension educator and ceramic tiler. Recommended outpatient f/up with endocrinology. Hyperlipidemia: Lipid profile with triglycerides 299 and LDL 98. With diabetes, goal LDL < 70. Continue on statin Hypertension: Labile BP. Resume Prinivil 20 mg daily. BP still elevated in the 180s at times. Added Norvasc 5mg daily. BP improving. Outpatient f/up with PCP. Pt Condition on Discharge: Stable Discharge Disposition: Discharge Home Discharge Time: > 30 minutes Discharge Instructions DIET: Follow Instructions for: Diabetic Diet Activities you can perform: Regular-No Restrictions Follow up Referrals: Endocrinology - 1 Week with Schuyler Jarrett MD PCP Follow-up - 1 Week with Georges Luz MD New Medications: Insulin Aspart Inj (Novolog Inj) 1,000 Unit/10 Ml Vial 2-12 UNITS SQ ACHS for Blood Sugar Management, #10 ML 1 Refill sugars less than 70,(0)units; sugars 150-199,(2)units; sugars 200-249,(4)units; sugars 250-299,(7)units; sugars 300-349,(10)units; sugars > 349,(12)units Insulin Syringe/U-100/31G X 5/16" 1 ml (Insulin Syringe/U-100/31G X 5/16" 1 ml) 31 Gauge X 5/16" Mis EA .XX DIRECTED for Blood Sugar Management, #1 0 Refills Amlodipine (Norvasc) 5 Mg Tab 5 MG PO DAILY for Blood Pressure Management for 30 Days, #30 TAB 1 Refill Insulin Detemir Inj (Levemir Inj) 1,000 unit/ 10 ML Vial 24 UNITS SQ Q12HR for Blood Sugar Management for 30 Days, #60 INJECTION 1 Refill Do not mix with any other Insulin. Continued Medications: Albuterol 8.5 GM Inh (Proair Hfa 8.5 GM Inh) 90 Mcg/Act Aer 2 PUFF INH Q4-6H PRN for SHORTNESS OF BREATH, #1 INHALER 0 Refills 108 mcg/actuation Glyburide (Glyburide) 5 Mg Tab 10 MG PO DAILY for Blood Sugar Management for 30 Days, #60 TAB 1 Refill (This prescription has been renewed) Take with meals at the same time each day Lisinopril (Lisinopril) 20 Mg Tab 20 MG PO DAILY for Blood Pressure Management for 30 Days, #30 TAB 1 Refill ( This prescription has been renewed) Pravastatin (Pravachol) 40 Mg Tab 40 MG PO HS for Cholesterol Management for 30 Days, #30 TAB 1 Refill (This prescription has been renewed) Discontinued Medications: Insulin Human Isophane-Regular 70-30 Inj (Novolin 70-30 Inj) 1,000 Unit/10 Ml Vial 12 UNITS SQ BID@08,17 for DM for 30 Days, INJECTION Lucinda Bourne PA-C Nov 28, 2017 8:38 am
[2017-11-28 08:50] VITALS: BP 172/87; PULSE 92; RESP 18; TEMP 98.5; O2SAT 99
[2017-11-28] MEDS ORDERED: amLODIPine BESYLATE 5 MG TAB PO SCH (09:00)
[2017-11-28] MEDS: LISINOPRIL 20 MG TAB PO SCH (09:02)
[2017-11-28] MEDS: ASPIRIN EC 81 MG TABEC PO SCH (09:03)
[2017-11-28] MEDS: FAMOTIDINE 20 MG TAB PO SCH (09:03)
[2017-11-28] MEDS: ACETAMINOPHEN 325 MG TAB PO PRN (09:04)
[2017-11-28] MEDS: SODIUM CHLORIDE 0.9% FLUSH 10 ML FLUSH IV FLUSH SCH (09:07)
[2017-11-28] MEDS: INSULIN ASPART SUPPLEMENTAL SCALE SQ SCH (09:19)
[2017-11-28] MEDS: INSULIN DETEMIR 100 UNITS/ML VIAL SQ SCH (09:19)
[2017-11-28] MEDS: glyBURIDE 5 MG TAB PO SCH (09:19)
[2017-11-28 11:30] VITALS: BP 158/80; PULSE 78; RESP 18; TEMP 97.8; O2SAT 98
== END 2017-11-28 12:12 | disposition home or self-care (01) ==
LOC: NEPE 12:21 → INTOOBSV 15:53 → NEDA 15:53 → NEPFCDU 16:58
PROVIDERS: ADMIT Hospitalist; ATTEND Hospitalist
DX: R07.89 Other chest pain (principal); E11.65 Type 2 diabetes mellitus with hyperglycemia; I10 Essential (primary) hypertension; E78.5 Hyperlipidemia, unspecified; J45.909 Unspecified asthma, uncomplicated; R07.2 Precordial pain; Z91.19 Patient's noncompliance with other medical treatment and regimen; E78.00 Pure hypercholesterolemia, unspecified; K21.9 Gastro-esophageal reflux disease without esophagitis; G43.909 Migraine, unspecified, not intractable, without status migrainosus; R94.31 Abnormal electrocardiogram [ECG] [EKG]; E66.01 Morbid (severe) obesity due to excess calories; Z68.43 Body mass index [BMI] 50.0-59.9, adult; Z86.73 Personal history of transient ischemic attack (TIA), and cerebral infarction without residual deficits
CPT/HCPCS: 71045; 78452; 80048; 80053; 80061; 80307; 82550; 82948; 83036; 83735; 84484; 85025; 85610; 85730; 93005; 93017; 93306; 96361; 96372; 96374; 99285; A9502; G0378; J1650; J1815; J2785; J7030